=== PATIENT | female | born 1935 | race Caucasian/White ===

== ENCOUNTER 2016-04-18 12:34 | Emergency (ER) | payer MEDICARE ==
[~2016-04-18] VITALS: Ht 152.4 cm; Wt 69.0 kg
[~2016-04-18 12:34] MED LIST: ASPI-973 PO; CALC-140 PO; CALC-761 PO; CHOL100043 PO; GABA-502 PO; LACT1CAP67 PO; MAGN500C4 PO; MELA3TAB37 PO; MULT-321 PO; PRAV40TA PO; PRD5T PO; SERT20OR6 PO; TACR1CAP8 PO; VALS80TA2 PO
[2016-04-18 12:45] VITALS: BP 121/61; PULSE 95; O2SAT 96
--- NOTE | 2016-04-18 14:05 | ED.REPORT ---
HPI-General Illness Date of Service Apr 18, 2016 ED Provider: Donato Gomez DO Pt is an 81 y.o. female with a hx of liver and renal transplant, DM, and HTN who presents to the ED accompanied by her daughter c/o weakness onset today. Pt states that she experienced nausea upon awakening so she drank some soda. She then had to use the restroom and was unable to get out of her recliner so her husbands caregiver helped her get up and accompanied her to the restroom while she used her walker. She was unable to get onto the toilet and 'slid' onto the ground. Pt was unable to get herself off of the ground and EMS was called, the pt denied transport by EMS. Pt reports a recent cough onset several days ago. Pt denies any injury from the fall, she also denies pain, LOC, vomiting, and fever. Pt is currently on prednisone and tacrolimus. Nursing Notes Stated Complaint: FELL/WEAKNESS Chief Complaint: Multiple Trauma/Fall Nursing Notes Reviewed: Yes Allergies: Coded Allergies: Sulfa (Sulfonamide Antibiotics) (Verified Allergy, Unknown, 02/23/15) ampicillin (Verified Allergy, Unknown, 02/23/15) codeine (Verified Allergy, Unknown, 11/01/12) miconazole (Verified Allergy, Unknown, 11/01/12) spironolactone (Verified Allergy, Unknown, 11/01/12) Scheduled Aspirin (Aspirin) 81 Mg Tablet 81 MG PO Evening Calcium Carbonate/Vitamin D3 (Calcium + Vitamin D Tablet) 1 Each Tablet 1 EACH PO AM Calcium Citrate/Vitamin D3 (Citracal + D Maximum Caplet) 1 Each Tablet 1 EACH PO Noon Cephalexin (Cephalexin) 500 Mg Capsule 500 MG PO QID Cholecalciferol (Vitamin D3) (Vitamin D) 1,000 Unit Tablet 1,000 UNIT PO evening Gabapentin (Gabapentin) 300 Mg Capsule 300 MG PO TID Lactobacillus Combination No.4 (Probiotic) 1 Each Capsule 1 EACH PO AM Magnesium Oxide (Magnesium) 500 Mg Capsule 500 MG PO noon Melatonin (Meladox) 3 Mg Tablet.er 3 MG PO HS Multivit with Calcium,Iron,Min (Maximum Daily Multivitamin) 1 Each Tablet 1 EACH PO AM Pravastatin (Pravastatin) 40 Mg Tablet 80 MG PO HS Prednisone (PredniSONE) 5 Mg Tab 5 MG PO AM Sertraline HCl (Sertraline) 20 Mg/1 Ml Oral.conc 50 MG PO HS Tacrolimus (Tacrolimus) 1 Mg Capsule 1 MG PO HS Tacrolimus (Tacrolimus) 1 Mg Capsule 1 MG PO AM Valsartan (Diovan) 80 Mg Tablet 80 MG PO HS General Time Seen by MD: 13:54 Chief Complaint Weakness Hx Obtained From: Patient Arrived By: Ambulance Sudden in Onset?: Yes Onset Occurred: 5 - 8 hours ago Symptom Duration: Since onset Caused by: Fall on ground Context: Occurred at: Home injury Severity: Current: No pain currently Severity: Maximum: No pain Past Medical History Past Medical History Reports: Diabetes mellitus, Hypertension Past Surgical History Liver and Kidney transplant Reports: Appendectomy, Hysterectomy Family History noncontributory Smoking History Never Smoker Social History Alcohol Use: Denies alcohol use Drug Use: Denies drug use Review of Systems Full Review of Systems Constitutional: Reports: Weakness - generalized, Denies: Fever Respiratory: Reports: Non-productive cough Cardiovascular: Denies: Chest pain GI: Reports: Nausea, Denies: Abdominal pain Musculoskeletal: Denies: Extremity pain, Neck pain Neurologic: Denies: Change LOC, Headache Complete sys rev & neg: except as marked. Physical Exam Vital Signs Vital Signs Date Time Temp Pulse Resp B/P Pulse Ox O2 Delivery O2 Flow Rate FiO2 04/18/16 16:35 37.4 81 16 130/63 96 Room Air 04/18/16 16:20 37.4 81 16 130/63 96 Room Air 04/18/16 12:45 37.1 95 121/61 96 Initial VS: Reviewed Head / Eyes: Atraumatic, Normocephalic Extremities: Vascular intact, Neuro intact Skin: Warm, Dry, No cyanosis Neurologic: Alert, Oriented, Nonfocal Psychiatric: Mood/affect normal, Behavior normal, Normal thought content General/Constitutional: Awake, Alert, No acute distress, Well appearing, Well developed, Well hydrated, Well nourished, Not toxic appearing Respiratory / Chest: Atraumatic, Breath sounds = bilat, No respiratory distress Bibasilar rale with inspiration No increased work of breathing Cardiovascular: Heart rate NL, Regular rhythm Heart Sounds / Murmur: Positive: Systolic murmur present.. (II/, mild, left upper sternal border) Abdomen: Atraumatic, Soft, Non-tender, No distention Interpretation & Diagnostics Lab Results Interpretation Result Diagram: 04/18/16 1500 04/18/16 1500 Test 04/18/16 13:55 04/18/16 15:00 Urine Color Yellow (YELLOW) Urine Appearance Turbid (CLEAR,HAZY) Urine pH 7.0 (5.0-8.0) Urine Specific [place] 1.020 (1.003-1.035) Urine Protein 100mg/dL (NEG,TRACE) Urine Glucose (UA) Negativemg/dL (NEGATIVE) Urine Ketones Negativemg/dL (NEGATIVE) Urine Occult Blood Small (NEGATIVE) Urine Nitrite Negative (NEGATIVE) Urine Bilirubin Negative (NEGATIVE) Urine Urobilinogen Normalmg/dL (NORMAL) Urine Leukocyte Esterase Moderate (NEGATIVE) Urine RBC 3-10/hpf (0-2) Urine WBC Packed/hpf (0-5) Urine Epithelial Cells Moderate/hpf (NONE-MOD) Urine Crystals None seen (NONE SEEN) Urine Bacteria Many/hpf (NONE-FEW) Urine Hyaline Casts None/lpf (NONE) Urine Granular Casts None seen (NONE SEEN) Urine Waxy Casts None seen (NONE SEEN) Urine Red Blood Cell Casts None seen (NONE SEEN) Urine White Blood Cell Casts None seen (NONE SEEN) Urine Mucus None seen (None Seen) Urine Trichomonas None seen (NONE SEEN) Urine Yeast None (NONE SEEN) Urinalysis Comment Urine Culture Reflexed Indicated White Blood Count 14.6th/mm3 (3.8-10.1) Red Blood Count 3.23mil/mm3 (3.90-5.20) Hemoglobin 10.1g/dL (12.0-15.6) Hematocrit 32.4% (35.0-46.0) Mean Corpuscular Volume 100.3fL (81-100) Mean Corpuscular Hemoglobin 31.3pg (27.0-35.0) Mean Corpuscular Hemoglobin Concent 31.2% (32.0-37.0) Red Cell Distribution Width 12.5% (12.3-15.4) Platelet Count 163bil/L (150-400) Neutrophils (%) (Auto) 70.8% (40-74) Lymphocytes (%) (Auto) 18.9% (14-46) Monocytes (%) (Auto) 8.9% (4-12) Eosinophils (%) (Auto) 0.9% (0-5) Basophils (%) (Auto) 0.1% (0-3) Sodium Level 138mEq/L (134-144) Potassium Level 5.2mEq/L (3.5-5.2) Chloride Level 101mEq/L (97-108) Carbon Dioxide Level 24mmol/L (18-29) Blood Urea Nitrogen 32mg/dL (8-27) Creatinine 3.05mg/dL (0.57-1.00) Estimat Glomerular Filtration Rate 21mL/min (>59) Glucose Level 149mg/dL (60-99) Calcium Level 9.1mg/dL (8.5-10.1) Total Bilirubin 0.4mg/dL (0.0-1.2) Aspartate Amino Transf (AST/SGOT) 18U/L (0-50) Alanine Aminotransferase (ALT/SGPT) 9U/L (0-32) Alkaline Phosphatase 67U/L (25-165) Total Protein 6.1g/dL (6.4-8.4) Albumin 3.2g/dL (3.4-5.0) Hold Kelly Top Tube Received (Received) ECG Interpretation ECG Interpretation: RBBB appears to have resolved from 02/23/15 Time: 14:42 Interpreted by: ED physician Normal ECG Interpretation: Normal rate (73), Normal sinus rhythm X-Ray Chest Interpretation Chest Xray Interpretation: IMPRESSION: 1. No acute cardiopulmonary disease. 2. 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 Dictated by: Ermias Rivero M.D. on 04/18/2016 at 14:44 Approved by: Ermias Rivero M.D. on 04/18/2016 at 14:46 Re-Eval/Medical Decision Med Decision/Clinical Course 81-year-old female with a history of immunosuppression due to renal and hepatic transplants presents complaining of weakness and a recent fall without injury. Her lab work reveals her kidney function to be at baseline as well as her anemia. She does however have a leukocytosis and a dirty urine. I believe that the UTIs cause of her symptoms. No injuries are identified on exam or by history. We will treat her with Macrobid and have her follow-up with her PCP next week. Source of Hx: Old records Time of Eval: 16:01 Re-Evaluation/Progress Note: Pt rechecked. Discussed imaging, lab results, and plan for discharge. Pt understands and agrees with plan. Counseled Regarding: Diagnosis, Lab results, Need for follow-up, When/why to return to ED Discharge & Departure Primary Impression: UTI (urinary tract infection) Urinary tract infection type: acute cystitis Hematuria presence: with hematuria Qualified Code: N30.01 - Acute cystitis with hematuria Additional Impressions: Fall Encounter type: initial encounter Qualified Code: W19.XXXA - Unspecified fall, initial encounter Weakness Leukocytosis Leukocytosis type: unspecified Qualified Code: D72.829 - Elevated white blood cell count, unspecified Anemia Anemia type: unspecified type Qualified Code: D64.9 - Anemia, unspecified Chronic kidney disease Chronic kidney disease stage: stage 4 (severe) Qualified Code: N18.4 - Chronic kidney disease, stage 4 (severe) Disposition: Home Discharge Condition All VS Reviewed: Yes Condition: Stable Patient Instructions: Urinary Tract Infection in Women (ED) Additional Instructions: Thank you for entrusting us with your care today. Your examination included a physical exam, interview, EKG, chest x-ray, and labs. Your labs show that you have a UTI. You will be prescribed a 7 day course of antibiotics to take twice a day. I believe that this is the cause of your weakness. I recommend that you follow-up with your primary care provider. Please seek care if you develop fever , increased weakness, or any new or worsening symptoms. Referrals: Aris Caruso MD (PCP) Magno Attestation Portions of this note were transcribed by Peyton Gillette. I, Dr. Gomez personally performed the history, physical exam and medical decision-making; I reviewed and confirmed the accuracy of the information in the transcribed note. Signed by: Magno Schmidt, 04/18/2016 and 1087. copies to: Aris Caruso MD, Gary R DO Apr 18, 2016 14:05 PEYTON GILLETTE Apr 18, 2016 14:20
[2016-04-18 14:39] LABS: APPEARANCE,URINE TURBID (CLEAR,HAZY); COLOR,URINE YELLOW (YELLOW); OCCULT BLOOD,URINE SMALL (NEGATIVE); UROBILINOGEN,URINE NORMAL (NORMAL)
--- NOTE | 2016-04-18 14:47 | DRSVH ---
PROCEDURE: X-RAY CHEST, TWO VIEWS ([id number]) INDICATIONS: 81 year-old female with cough and weakness. TECHNIQUE: 2 views of the chest were acquired. COMPARISON: [facility], CT, CT CHEST ABD PELVIS WO CON, 02/24/2015, 17:50. [facility], CR, XR CHEST 1VW (PORTABLE), 02/23/2015, 13:24. [facility], CR, CHEST 1VW (P ORTABLE), 11/01/2012, 11:09. [facility], CR, CHEST 1VW (PORTABLE), 07/13/2012, 7:24. FINDINGS: Surgical changes and devices: Epigastric surgical clips are present. Lungs and pleura: No pleural effusions or pneumothorax. Lungs are clear. Mediastinum: Mediastinal contours are normal. Heart size is normal, with senescent mitral valve norma ular calcification. There is aortic atherosclerosis. Bones and chest wall: No suspicious bony abnormalities. Peripherally calcified splenic artery aneury sm is again noted.. IMPRESSION: 1. No acute cardiopulmonary disease. 2. 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 Dictated by: Ermias Rivero M.D. on 04/18/2016 at 14:44 Approved by: Ermias Rivero M.D. on 04/18/2016 at 14:46
[2016-04-18 15:11] LABS: BASOPHILS % (AUTO) 0.1 % (0-3); EOSINOPHILS % (AUTO) 0.9 % (0-5); MONOCYTES % (AUTO) 8.9 % (4-12); Mean Corpuscular Hemoglobin 31.3 pg (27.0-35.0); Mean Corpuscular Volume 100.3 fL (81-100); NEUTROPHILS % (AUTO) 70.8 % (40-74); Platelet Count 163 bil/L (150-400)
[2016-04-18] MEDS ORDERED: Nitrofurantoin Monohyd-Macrocryst 100 mg Capsule PO ONE (16:05)
[2016-04-18 16:20] VITALS: BP 130/63; PULSE 81; RESP 16; O2SAT 96
[2016-04-18] MEDS ORDERED: NITR100 PO (16:20)
[2016-04-18 16:35] VITALS: BP 130/63; PULSE 81; RESP 16; O2SAT 96
[2016-04-21] MEDS ORDERED: CEPH500C PO (10:30)
== END 2016-04-18 16:36 | disposition home or self-care (01) ==
LOC: SED 12:34
DX: N30.01 Acute cystitis with hematuria (principal); N18.4 Chronic kidney disease, stage 4 (severe); D72.829 Elevated white blood cell count, unspecified; D64.9 Anemia, unspecified; R53.1 Weakness; B96.1 Klebsiella pneumoniae [K. pneumoniae] as the cause of diseases classified elsewhere; W18.30XA Fall on same level, unspecified, initial encounter; Y92.002 Bathroom of unspecified non-institutional (private) residence as the place of occurrence of the external cause; Y93.89 Activity, other specified; Y99.8 Other external cause status; E11.22 Type 2 diabetes mellitus with diabetic chronic kidney disease; I12.9 Hypertensive chronic kidney disease with stage 1 through stage 4 chronic kidney disease, or unspecified chronic kidney disease; Z94.0 Kidney transplant status; Z94.4 Liver transplant status; Z79.82 Long term (current) use of aspirin; Z88.2 Allergy status to sulfonamides; Z88.0 Allergy status to penicillin; Z88.5 Allergy status to narcotic agent; Z88.8 Allergy status to other drugs, medicaments and biological substances

== ENCOUNTER 2016-10-25 10:47 | Inpatient (IN) | payer MEDICARE ==
[~2016-10-25] VITALS: Ht 152.4 cm; Wt 80.8 kg
[2016-10-25] VITALS (7 sets, daily range): BP systolic 128–156; BP diastolic 44–87; PULSE 87–99; RESP 16–21; O2SAT 95–98
[~2016-10-25 10:47] MED LIST changes: +CEPH500C PO
--- NOTE | 2016-10-25 10:48 | ED.REPORT ---
HPI-Trauma Minor / Fall Date of Service Oct 25, 2016 ED Provider: Mukesh Cruz MD Patient is an 81 year old female with a history of diabetes, liver and kidney transplant and hypertension who presents to the ED via EMS due to a ground level fall. She complains of back pain. The patient reports feeling nauseous this morning and then became dizzy, which caused her to fall. She is uncertain if she fainted. Patient has had lower extremity swelling for the past three weeks even though she has been taking a water pill. She denies hitting her head , chest pain or neck pain. The patient reports that it has been difficult for her to walk. She states that she fell and hit the bath tub. Nursing Notes Stated Complaint: GROUND LEVEL FALL Chief Complaint: Multiple Trauma/Fall Nursing Notes Reviewed: Yes Allergies: Coded Allergies: Sulfa (Sulfonamide Antibiotics) (Verified Allergy, Unknown, 02/23/15) ampicillin (Verified Allergy, Unknown, 02/23/15) codeine (Verified Allergy, Unknown, 11/01/12) miconazole (Verified Allergy, Unknown, 11/01/12) spironolactone (Verified Allergy, Unknown, 11/01/12) Scheduled Aspirin (Aspirin) 81 Mg Tablet 81 MG PO Evening Calcium Carbonate/Vitamin D3 (Calcium + Vitamin D Tablet) 1 Each Tablet 1 EACH PO AM Calcium Citrate/Vitamin D3 (Citracal + D Maximum Caplet) 1 Each Tablet 1 EACH PO Noon Cephalexin (Cephalexin) 500 Mg Capsule 500 MG PO QID Cholecalciferol (Vitamin D3) (Vitamin D) 1,000 Unit Tablet 1,000 UNIT PO evening Gabapentin (Gabapentin) 300 Mg Capsule 300 MG PO TID Lactobacillus Combination No.4 (Probiotic) 1 Each Capsule 1 EACH PO AM Magnesium Oxide (Magnesium) 500 Mg Capsule 500 MG PO noon Melatonin (Meladox) 3 Mg Tablet.er 3 MG PO HS Multivit with Calcium,Iron,Min (Maximum Daily Multivitamin) 1 Each Tablet 1 EACH PO AM Pravastatin (Pravastatin) 40 Mg Tablet 80 MG PO HS Prednisone (PredniSONE) 5 Mg Tab 5 MG PO AM Sertraline HCl (Sertraline) 20 Mg/1 Ml Oral.conc 50 MG PO HS Tacrolimus (Tacrolimus) 1 Mg Capsule 1 MG PO HS Tacrolimus (Tacrolimus) 1 Mg Capsule 1 MG PO AM Valsartan (Diovan) 80 Mg Tablet 80 MG PO HS General Time Seen by MD: 10:47 Chief Complaint Fall Hx Obtained From: Patient Arrived By: Ambulance Onset Occurred: Just prior to arrival Symptom Duration: Since onset Caused by: Fall on ground Location: Back Quality: Painful Severity: Current: Moderate Recent Healthcare: Recent doctor visit Past Medical History Past Medical History Reports: Diabetes mellitus, Hypertension Past Surgical History Liver and Kidney transplant Reports: Appendectomy, Hysterectomy Family History noncontributory Smoking History Never Smoker Social History Alcohol Use: Denies alcohol use Drug Use: Denies drug use Other Social History: Good social support Ambulatory Status Independent Review of Systems Constitutional: Denies: Chills, Fever Respiratory: Denies: Non-productive cough, Shortness of breath Musculoskeletal: Reports: Back pain Skin: Denies Itching, Denies Rash Neurologic: Reports: Dizziness, Problem walking, Denies: Headache, Lightheaded, Numbness, Weakness Complete sys rev & neg: except as marked. Cardiovascular: Denies: Chest pain GI: Reports: Nausea, Denies: Vomiting Physical Exam Initial Vital Signs Vital Signs (First) Date Time Temp Pulse Resp B/P Pulse Ox O2 Delivery O2 Flow Rate FiO2 10/25/16 10:47 36.6 98 18 141/44 97 Room Air Initial VS: Reviewed General/Constitutional: Awake, Alert Neck: Atraumatic, Supple, Full range of motion Head / Eyes: Atraumatic, Normocephalic, PERRL, EOMI Respiratory / Chest: Atraumatic, Breath sounds NL, Breath sounds = bilat, No respiratory distress Cardiovascular: Heart rate NL, Regular rhythm, Heart sounds NL Abdomen: Atraumatic, Soft, Non-tender Back: No midline vertebral tend, No paraspinal tenderness tender over the posterior lateral lower left side ribs Upper Extremity / MS: Atraumatic, Full range of motion Lower Extremity / Pelvis / MS: Atraumatic bilateral edema Skin: Atraumatic, Color NL, No rash, Warm, Dry Interpretation & Diagnostics Lab Results Interpretation Result Diagram: 10/25/16 1240 10/25/16 1240 Test 10/25/16 12:40 10/25/16 13:27 White Blood Count 9.6th/mm3 (3.8-10.1) Red Blood Count 2.47mil/mm3 (3.90-5.20) Hemoglobin 7.7g/dL (12.0-15.6) Hematocrit 24.7% (35.0-46.0) Mean Corpuscular Volume 100.0fL (81-100) Mean Corpuscular Hemoglobin 31.2pg (27.0-35.0) Mean Corpuscular Hemoglobin Concent 31.2% (32.0-37.0) Red Cell Distribution Width 14.2% (12.3-15.4) Platelet Count 166bil/L (150-400) Neutrophils (%) (Auto) 61.4% (40-74) Lymphocytes (%) (Auto) 27.5% (14-46) Monocytes (%) (Auto) 10.1% (4-12) Eosinophils (%) (Auto) 0.6% (0-5) Basophils (%) (Auto) 0.2% (0-3) Sodium Level 139mEq/L (134-144) Potassium Level 4.5mEq/L (3.5-5.2) Chloride Level 107mEq/L (97-108) Carbon Dioxide Level 20mmol/L (18-29) Blood Urea Nitrogen 36mg/dL (8-27) Creatinine 2.99mg/dL (0.57-1.00) Estimat Glomerular Filtration Rate 21mL/min (>59) Glucose Level 150mg/dL (60-99) Calcium Level 8.2mg/dL (8.5-10.1) Magnesium Level 1.9mg/dL (1.6-2.6) Total Bilirubin 0.3mg/dL (0.0-1.2) Aspartate Amino Transf (AST/SGOT) 20U/L (0-50) Alanine Aminotransferase (ALT/SGPT) 14U/L (0-32) Alkaline Phosphatase 68U/L (25-165) Pro-B-Type Natriuretic Peptide 44715ky/mL (0-738) Total Protein 4.6g/dL (6.4-8.4) Albumin 2.6g/dL (3.4-5.0) Hold Kelly Top Tube Received (Received) ECG Interpretation ECG Interpretation: atrial premature complexes RBBB Time: 11:12 Interpreted by: ED physician Normal ECG Interpretation: Normal rate (83), Normal sinus rhythm X-Ray Chest Interpretation Chest Xray Interpretation: IMPRESSION: Reduced inspiratory volume, without identified trauma. Dictated by: Francisco Rivera M.D. on 10/25/2016 at 12:02 Approved by: Francisco Rivera M.D. on 10/25/2016 at 12:03 View: Portable, 1 view Interpretation / Wet Read by: Interpret - Radiologist Re-Eval/Medical Decision Re-Evaluation/Progress : Time of Eval: 14:20 Re-Evaluation/Progress Note: Discussed results and plan for admit. Patient understands and agrees to plan. All questions were addressed. Consultation : Referral / Consult Name: Jed Garnica Consulted With: Hospitalist Truck Leasing Manager: Agrees with eval, Agrees with plan, Accepts admit Counseled Regarding: Diagnosis, Lab results, Need for admission Discharge & Departure Impression: Primary Impression: CHF (congestive heart failure) Congestive heart failure type: unspecified congestive heart failure type Congestive heart failure chronicity: acute Qualified Code: I50.9 - Heart failure, unspecified Additional Impression: Anasarca Disposition: ADMITTED TO HOSPITAL Discharge Condition All VS Reviewed: Yes Condition: Stable Referrals: Aris Caruso MD (PCP) Scribe Attestation Portions of this note were transcribed by Sunshine Schulz. I, Dr. Cruz personally performed the history, physical exam and medical decision-making; I reviewed and confirmed the accuracy of the information in the transcribed note. Signed by: Magno Reis, 10/25/16 copies to: Aris Caruso MD, Kirk H MD Oct 25, 2016 10:47 Shelbie Schulz Oct 25, 2016 10:51
--- NOTE | 2016-10-25 12:04 | DRSVH ---
PROCEDURE: X-RAY CHEST ONE VIEW, PORTABLE ([id number]) INDICATIONS: trauma TECHNIQUE: One view of the chest was acquired. COMPARISON: [facility], CR, XR CHEST 2VW, 04/18/2016, 14:34. [facility], CR, XR CHEST 1VW (PORTABLE), 02/23/2015, 13:24. FINDINGS: Surgical changes and devices: None. Lungs and pleura: No pleural effusions or pneumothorax. Lungs are abnormal with reduced inspiratory volume. No trauma found.. Mediastinum: Mediastinal contours appear normal. Heart size is normal. Bones and chest wall: No suspicious bony lesions. Overlying soft tissues appear unremarkable. IMPRESSION: Reduced inspiratory volume, without identified trauma. Dictated by: Francisco Rivera M.D. on 10/25/2016 at 12:02 Approved by: Francisco Rivera M.D. on 10/25/2016 at 12:03
[2016-10-25 12:52] LABS: BASOPHILS % (AUTO) 0.2 % (0-3); EOSINOPHILS % (AUTO) 0.6 % (0-5); MONOCYTES % (AUTO) 10.1 % (4-12); Mean Corpuscular Hemoglobin 31.2 pg (27.0-35.0); NEUTROPHILS % (AUTO) 61.4 % (40-74); Platelet Count 166 bil/L (150-400)
[2016-10-25 13:27] LABS: Magnesium 1.9 mg/dL (1.6-2.6)
[2016-10-25] MEDS ORDERED: Alum-Mag Hydrox-Simeth 30 mL Suspension PO PRN ×2 (15:20→15:45)
[2016-10-25] MEDS ORDERED: Ondansetron 2 mg/mL 2 mL Inj IVPUSH PRN (15:20)
[2016-10-25] MEDS ORDERED: Polyethylene Glycol (PEG) 17 Gm Powder PO PRN (15:45)
[2016-10-25] MEDS ORDERED: PRAV40TA PO (17:14)
[2016-10-25] MEDS ORDERED: FURO-129 PO (17:14)
--- NOTE | 2016-10-25 21:55 | PCM.HPMED ---
Subjective Date of Service Oct 25, 2016 Primary Provider: Admitting Physician: Jed Garnica Primary Care Physician: Aris Caruso MD Attending Physician: Jed Garnica Chief Complaint: Back pain after fall from ground level History of Present Illness: Ms. Jelena Merritt is a very pleasant 81 year old lady with a past medical history of hepatic and bilateral renal transplants in 2004, hypertension, DM, presented to the [facility] Emergency Department due to back pain after a fall from ground level. At 9AM patient was feeling a bit nauseous, when to the bathroom, became dizzy, at which point she fell backward and hit her left upper thoracic area on the tub. She denies syncope or seizure. She called EMS, and then declined hospital visit. Roughly an hour after EMS left, the patient attempted to stand and walk but reported 7/10 sharp back pain. She states it doesn't radiate and is aggravated by movement, standing and decided to call EMS once again and decided to come to the hospital. She denies hitting her head, chest pain or neck pain. She denies dizziness, vision change, headache, nausea, vomiting, fever, chills, chest pain, heart palpitations, shortness of breath, cough, abdominal pain, dysuria. She reports chronic intermittent diarrhea and upper back pain. Of note: Patient has had lower extremity swelling for the past three weeks even though she has been taking a water pill. Social: Patient lives with high needs who is hemiparetic and has home health aids/RN during the day. She has good family support. She ambulates with a front wheeled walker. FULL CODE. In the ED patients vitals: T-36.6, HR-98, RR-18, BP-144/44, 97% RA. EKG reviewed - Sinus rhythm, 83 bpm, PAC's, partial RBBB, no ST changes. CXR -IMPRESSION: Reduced inspiratory volume, without identified trauma. In the ED patient received: acetaminophen. Review of Systems: A comprehensive review of systems was conducted with the patient and found to be negative except as above in the History of Present Illness. Constitutional: Negative, except as otherwise mentioned in the history above. Ophthalmologic: Negative, except as otherwise mentioned in the history above. Cardiovascular: Negative, except as otherwise mentioned in the history above. Respiratory: Negative, except as otherwise mentioned in the history above. Gastrointestinal: Negative, except as otherwise mentioned in the history above. Genitourinary: Negative, except as otherwise mentioned in the history above. Musculoskeletal: Negative, except as otherwise mentioned in the history above. Neurological: Negative, except as otherwise mentioned in the history above. Psychiatric: Negative, except as otherwise mentioned in the history above. Hematologic/Lymphatic: Negative, except as otherwise mentioned in the history above. Allergic/Immunologic: Negative, except as otherwise mentioned in the history above. Allergies Coded Allergies: Sulfa (Sulfonamide Antibiotics) (Verified Allergy, Unknown, 02/23/15) codeine (Verified Allergy, Unknown, 11/01/12) miconazole (Verified Allergy, Unknown, 11/01/12) spironolactone (Verified Allergy, Unknown, 11/01/12) Home Medications ASA 81 mg daily Calcium citrate VD3 1 PO noon Furosemide 20 mg jDaily Gabapentin 300 mg TID Lactobacillus 1 each AM. Magnesium Oxide 500 mg PO noon Multivit with calcium, iron, min 1 each AM Pravastatin 40 mg HS Prednisone 5 mg AM Sertraline 50 mg PO HS Tacrolimus 1 Mg PO HS Tacrolimus 1 MG PO AM Valsartan 80 mg HS Exam Vital Signs & I/O Vital Sign- Last 8 Hours Date Time Temp Pulse Resp B/P Pulse Ox O2 Delivery O2 Flow Rate FiO2 10/26/16 16:15 37.3 101 20 157/76 92 Room Air 10/26/16 11:45 37.5 100 18 165/66 94 Room Air 10/26/16 11:07 111 Intake and Output- Last 8 Hour 10/26/16 Cumulative From/Thru 07:00 10/25/16 10:47 - 10/26/16 03:30 Output Total 300 ml 300 ml Balance -300 ml -300 ml Output Urine Total 300 ml 300 ml Lab & Micro Results Laboratory Tests Test 10/25/16 20:15 10/26/16 07:33 10/26/16 10:35 10/26/16 13:00 Hemoglobin 7.9g/dL (12.0-15.6) 8.5g/dL (12.0-15.6) Hematocrit 25.0% (35.0-46.0) 27.4% (35.0-46.0) White Blood Count 10.2th/mm3 (3.8-10.1) Red Blood Count 2.77mil/mm3 (3.90-5.20) Mean Corpuscular Volume 98.9fL (81-100) Mean Corpuscular Hemoglobin 30.7pg (27.0-35.0) Mean Corpuscular Hemoglobin Concent 31.0% (32.0-37.0) Red Cell Distribution Width 14.1% (12.3-15.4) Platelet Count 167bil/L (150-400) Neutrophils (%) (Auto) 64.8% (40-74) Lymphocytes (%) (Auto) 22.9% (14-46) Monocytes (%) (Auto) 10.4% (4-12) Eosinophils (%) (Auto) 1.5% (0-5) Basophils (%) (Auto) 0.2% (0-3) Prothrombin Time 12.4sec (8.1-12.5) Prothromb Time International Ratio 1.16ratio D-Dimer 5.57mg/L FEU (<0.50) Sodium Level 140mEq/L (134-144) Potassium Level 5.0mEq/L (3.5-5.2) Chloride Level 109mEq/L (97-108) Carbon Dioxide Level 20mmol/L (18-29) Blood Urea Nitrogen 38mg/dL (8-27) Creatinine 3.05mg/dL (0.57-1.00) Estimat Glomerular Filtration Rate 21mL/min (>59) Glucose Level 154mg/dL (60-99) Calcium Level 8.2mg/dL (8.5-10.1) Phosphorus Level 3.8mg/dL (2.5-4.9) Iron Level 15ug/dL (35-150) Total Iron Binding Capacity 184ug/dL (250-450) Percent Iron Saturation 8%sat (15-50) Unsaturated Iron Binding 168.6ug/dL Ferritin 812ng/mL (13-150) Total Bilirubin 0.3mg/dL (0.0-1.2) Aspartate Amino Transf (AST/SGOT) 19U/L (0-50) Alanine Aminotransferase (ALT/SGPT) 13U/L (0-32) Alkaline Phosphatase 82U/L (25-165) Pro-B-Type Natriuretic Peptide 53068rj/mL (0-738) Total Protein 4.5g/dL (6.4-8.4) Albumin 2.6g/dL (3.4-5.0) Parathyroid Hormone (Intact) 73pg/mL (15-65) Troponin T 0.063ug/L (0.0-0.011) Procalcitonin 5.40ng/mL (0.00-0.08) Thyroid Stimulating Hormone (TSH) 3.670uIU/mL (0.450-4.500) Free Thyroxine 0.89ng/dL (0.82-1.77) Test 10/26/16 16:24 Urine Color Yellow (YELLOW) Urine Appearance Cloudy (CLEAR,HAZY) Urine pH 6.5 (5.0-8.0) Urine Specific [place] 1.020 (1.003-1.035) Urine Protein 300mg/dL (NEG,TRACE) Urine Glucose (UA) 250mg/dL (NEGATIVE) Urine Ketones Tracemg/dL (NEGATIVE) Urine Occult Blood Moderate (NEGATIVE) Urine Nitrite Negative (NEGATIVE) Urine Bilirubin Negative (NEGATIVE) Urine Urobilinogen Normalmg/dL (NORMAL) Urine Leukocyte Esterase Trace (NEGATIVE) Urine RBC 3-10/hpf (0-2) Urine WBC 11-50/hpf (0-5) Urine Epithelial Cells Few/hpf (NONE-MOD) Urine Crystals None seen (NONE SEEN) Urine Bacteria Many/hpf (NONE-FEW) Urine Hyaline Casts None/lpf (NONE) Urine Granular Casts None seen (NONE SEEN) Urine Waxy Casts None seen (NONE SEEN) Urine Red Blood Cell Casts None seen (NONE SEEN) Urine White Blood Cell Casts None seen (NONE SEEN) Urine Mucus None seen (None Seen) Urine Trichomonas None seen (NONE SEEN) Urine Yeast None (NONE SEEN) Urinalysis Comment None Urine Culture Reflexed Indicated Microbiology 10/26/16 Blood Culture, Received Pending 10/26/16 Urine Culture, Received Pending Result Diagram: 10/26/16 0733 10/26/16 0733 PMH Diabetes mellitus Hypertension Surgical History Liver and Kidney transplant 2005 Appendectomy Hysterectomy Family History Mother - CHF Father - Leukemia Social History Hx Alcohol Use: No Hx Substance Use: No Hx Tobacco Use: No Smoking Status: Never Smoker Exam Vital Signs Vital Sign - Last Date Time Temp Pulse Resp B/P Pulse Ox O2 Delivery O2 Flow Rate FiO2 10/25/16 16:50 36.9 92 18 152/75 97 Room Air Exam General: No acute distress, well-developed, well-nourished, appropriately interactive HEENT: Normocephalic, atraumatic. External ears without defect. Pupils equal, round, and reactive to light and accommodation. Anicteric sclerae, moist conjunctivae, and no lid lag. Oropharynx free of erythema and cobble stoning with moist mucosa. Neck: Supple with full range of motion. No jugular venous distension. No bruits. No lymphadenopathy or thyromegaly. Cardiovascular: Regular rate and rhythm with no murmurs, rubs, or gallops appreciated Pulmonary: Clear to auscultation bilaterally with no crackles, wheezes, or rhonchi. Normal respiratory effort with no use of accessory muscles. Abdomen: Bowel tones present. Soft, nontender, nondistended. No hepatosplenomegaly or masses appreciated. Extremities: No clubbing, cyanosis, edema, or lymphadenopathy appreciated. Skin: Normal temperature, turgor, and texture; no rash, ulcers, or subcutaneous nodules appreciated. Neurological: Cranial nerves grossly intact. Normal muscle strength, tone, and bulk. Reflexes, coordination, and sensory function within normal limits. Ambulates with the aid of a front wheeled walker. Psychiatric: Normal mood and affect. Alert and oriented to person, place, and time. MSK: Left paraspinal thoracic tenderness. Lab and Diagnostics Result Diagram: 10/26/1673210/26/16732 Assessment & Plan Ms. Jelena Merritt is a very pleasant 81 year old lady with a past medical history of hepatic and bilateral renal transplants in 2004, hypertension, DM, presented to the [facility] Emergency Department due to back pain after a fall from ground level. Acute Thoracic Back pain, 2nd to traumatic Fall from Ground level. Present on admission. Active. - CXR as above no fracture. - Physical therapy eval ordered. - Orthostatic BP ordered. - TELE on. - UA/ cx ordered. Congestive Heart failure, unknown chronicity, likely HFpEF, present on admission. Active. - ECHO ordered. - BNP on admit 12k. - EKG reviewed - Sinus rhythm, PAC's, RBBB. - Continue home furosemide 20 mg daily. Hx of Hepatic and Renal transplant, 2004, present on admission. Active. - Continue Tacrolimus 1mg AM/HS. - Continue home Prednisone 5 mg daily. Acute on chronic Kidney injury. Present on admission. Active. - Creatinine on admission 2.99, baseline ~ 2.6. - Continue IV fluids. - Avoid nephrotoxic insults. Acute on chronic Normocytic Anemia. Present on admission. Stable. - Hgb on admit 7.7. Prior levels inpatient and outpatient baseline between 9 and 10. - Stool guaiac ordered. - Following HH, pediatric tubes daily. Hyperlipemia - Continue home Pravastatin 40 mg daily. Hypertension - Continue home Valsartan 80 mg HS. Depression - Continue home Sertraline 20 mg HS. Acetaminophen for mild pain when necessary. Bowel regimen Senna and MiraLAX scheduled and PRN. Zofran when necessary for nausea and vomiting. SubQ heparin for now. SCDs in place. High-risk medications: NONE. Social: Patient lives with high needs who is hemiparetic and has home health aids/RN during the day. She has good family support. She ambulates with a front wheeled walker. Patient Status: Patient is admitted under inpatient status with expected length of stay greater than 2 midnights due to severity of presenting symptoms, risk of adverse event, and complexity of treatment plan. Pain Evaluation: Adequate Pain Control Resuscitation Status: CPR: Attempt Resuscitation Attending Statement The patient was seen and examined together with Dr. Snadra on 10/24/16 and I agree with the history, exam and plan as outlined in the note above. LYNNE SANDRA DO Oct 25, 2016 17:17 Jed Garnica Oct 26, 2016 17:03
[2016-10-26] VITALS (9 sets, daily range): BP systolic 134–182; BP diastolic 66–79; PULSE 71–111; RESP 16–20; O2SAT 92–100
[2016-10-26 08:03] LABS: BASOPHILS % (AUTO) 0.2 % (0-3); EOSINOPHILS % (AUTO) 1.5 % (0-5); MONOCYTES % (AUTO) 10.4 % (4-12); Mean Corpuscular Hemoglobin 30.7 pg (27.0-35.0); Mean Corpuscular Volume 98.9 fL (81-100); NEUTROPHILS % (AUTO) 64.8 % (40-74); Platelet Count 167 bil/L (150-400)
[2016-10-26 08:05] LABS: INR 1.16 ratio
[2016-10-26 10:27] LABS: Phosphorus 3.8 mg/dL (2.5-4.9); Unsaturated Iron Binding 168.6 ug/dL
--- NOTE | 2016-10-26 10:54 | DRSVH ---
[facility] [address] [place] [address] Echocardiogram Report Name: KERLINE FIGUEROA LStudy Date: Height: 60 in Hospital Exam Location: [facility] Weight: 168 lb Gender: Female BSA: 1.7 m2 : 1935 Age: 81 yrs BP: 102/75 mmHg Reason For Study: CHF Ordering Physician: HOSPITALIST [facility] Performed By: Luz Olivo Referring Physician: Moi Aguiar Interpretation Summary The ejection fraction is estimated to be 70-75%. The left atrium is severely dilated. The right atrium is mild to moderately dilated. There is moderate mitral annular calcification. The mitral valve mean gradient is 4 mmHg. There is mild to moderate mitral regurgitation. The aortic valve is moderately calcified. There is no hemodynamically significant valvular aortic stenosis. There is mild tricuspid regurgitation. The right ventricular systolic pressure is estimated at 34 mmHg assuming a right atrial pressure of 3 mm Hg. Procedure: A two-dimensional transthoracic echocardiogram with color flow and Doppler was performed. The study quality was technically adequate. Comparison is made with the echocardiogram of 02/24/2015. The patient was in sinus tachycardia with heart rates between 97-129 bpm during the exam. Left Ventricle: The left ventricle is normal in size. The ejection fraction is estimated to be 70-75%. Left ventricular wall motion is normal. Atria: The left atrium is severely dilated. The right atrium is mild to moderately dilated. The interatrial septum is intact with no evidence for an atrial septal defect. Mitral Valve: The mitral valve leaflets appear mildly thickened, but open well. There is moderate mitral annular calcification. The mitral valve mean gradient is 4 mmHg. There is mild to moderate mitral regurgitation. Aortic Valve: The aortic valve is trileaflet. The aortic valve is moderately calcified. There is no hemodynamically significant valvular aortic stenosis. No aortic regurgitation is present. Tricuspid Valve: The tricuspid valve leaflets are thin and pliable. There is mild tricuspid regurgitation. The right ventricular systolic pressure is estimated at 34 mmHg assuming a right atrial pressure of 3 mm Hg. Pulmonic Valve: The pulmonic valve is not well seen, but is grossly normal. There is a trace or physiologic amount of pulmonic regurgitation. Great Vessels: The aortic root is normal size. The ascending aorta is normal in size. The IVC is of normal diameter and collapses greater than 50% with a sniff. This suggests a low right atrial pressure of 3 mm Hg. Pericardium/ Pleura There is no pericardial effusion. There is no pleural effusion. MMode/2D Measurements & Calculations RA long axis LVOT diam: 2.2 cm TAPSE LA A2 area: 27.0 cm asc Aorta Diam : 2.4 cm LA A4 area: 27.7 cm LA length (vol): 6.1 cmRA area: 11.2 cm LA vol: 104.6 ml RA vol: 24.2 ml LA vol index RA : 14.0 ml/m2 : 60.4 ml/m2 Doppler Measurements & Calculations Ao V2 max MV E max ed MV E/A: 0.71 TR max ed : 184.7 cm/sec : 97.5 cm/sec : 278.9 cm/sec Ao max PG MV A max ed TR max P.1 mmHg : 13.7 mmHg : 137.9 cm/sec Ao mean PG MVA(VTI): 2.4 cm2 LVOT Max Ed : 127.5 cm/sec DWIGHT(I,D): 2.4 cm sev ratio: 0.64 MV V2 mean Ao V2 mean LV V1 max PG DWIGHT indexed to BSA : 87.7 cm/sec : 128.7 cm/sec (cm^2/m^2): 1.4 MV mean PG Ao V2 VTI: 33.0 cm LV V1 VTI DWIGHT(V,D): 2.6 cm2 : 21.2 cm MV V2 VTI: 33.0 cm MV dec time : 0.23 sec Electronically signed by: Mikie Arenas on Reading Physician:10/26/2016 10:53 AM
[2016-10-26] MEDS: predniSONE 5 mg Tablet PO SCH (11:53)
--- NOTE | 2016-10-26 14:24 | PCM.CHPMED ---
Subjective Date of Service: Oct 26, 2016 Primary Physician: Admitting Physician: Jed Garnica Primary Care Physician: Aris Caruso MD Attending Physician: Jed Garnica Chief Complaint: Chief Complaint: CKD status post renal transplant 2004 History of Present Illness: Ms. Merritt is a 81 year old female with a past medical history of liver and kidney transplant in 2004 on tacrolimus and prednisone, HTN, diabetes mellitus presented to the ED after a syncopal episode resulting in a ground level fall. She was in the bathroom rising to standing position when she became dizzy falling backwards landing on her coccyx and thoracic spine area, she denies striking her head. Leading up to this syncopal episode she states she has had intermittent diarrhea 1 year as well as nausea over the last day up to admission. She states over the last 2-3 weeks she has had an increase in her lower extremity swelling as well as shortness of breath despite recent addition of low-dose Lasix. Overnight she received a bladder scan which showed 500 mL residual urine volume, patient received straight cath with 300 mL urinary output. Today patient states no specific complaints, denies shortness of breath or chest pain. States that she has noticed some degree of lower extremity swelling does not states she has noticed any abdominal swelling or discomfort. She is followed by her customer support professional [facility] yearly. She states that her kidney function is doing well and she does not recall her baseline creatinine level. In review of previous health records it appears that her creatinine has been steadily trending up over the last year or so 2.9 on admit 3.05 today. She does take chronic tacrolimus and prednisone and is recently begun Lasix 20 mg by mouth daily. She reports no renal biopsy status post transplant though did receive biopsy prior to renal transplant in 2004. PMH Past Medical History Diabetes mellitus Hypertension Chronic kidney disease Surgical History Liver and Kidney transplant 2004 Appendectomy Hysterectomy Home Medications ASA 81 mg daily Calcium citrate VD3 1 PO noon Furosemide 20 mg jDaily Gabapentin 300 mg TID Lactobacillus 1 each AM. Magnesium Oxide 500 mg PO noon Multivit with calcium, iron, min 1 each AM Pravastatin 40 mg HS Prednisone 5 mg AM Sertraline 50 mg PO HS Tacrolimus 1 Mg PO HS Tacrolimus 1 MG PO AM Valsartan 80 mg HS Allergies: Coded Allergies: Sulfa (Sulfonamide Antibiotics) (Verified Allergy, Unknown, 02/23/15) codeine (Verified Allergy, Unknown, 11/01/12) miconazole (Verified Allergy, Unknown, 11/01/12) spironolactone (Verified Allergy, Unknown, 11/01/12) Family History Family History Mother - CHF Father - Leukemia Social History Hx Alcohol Use: NoHx Substance Use: NoHx Tobacco Use: No Smoking Status: Never Smoker Exam Vital Signs Vital Sign - Last Date Time Temp Pulse Resp B/P Pulse Ox O2 Delivery O2 Flow Rate FiO2 10/26/16 11:07 111 10/26/16 06:00 37.6 16 182/75 92 Room Air Intake and Output 10/25/16 10/25/16 10/26/16 Cumulative From/Thru 15:00 23:00 07:00 10/25/16 10:47 - 10/26/16 03:30 Output Total 300 ml 300 ml Balance -300 ml -300 ml Output Urine Total 300 ml 300 ml General: No acute distress, well-developed, well-nourished, appropriately interactive HEENT: Normocephalic, atraumatic. External ears without defect. Pupils equal, round, and reactive to light and accommodation. Anicteric sclerae, moist conjunctivae, and no lid lag. Moist mucosa. Neck: Supple with full range of motion. No jugular venous distension. Cardiovascular: Regular rate and rhythm with no murmurs, rubs, or gallops appreciated Pulmonary: Clear to auscultation bilaterally with no crackles, wheezes, or rhonchi. Normal respiratory effort with no use of accessory muscles. Abdomen: Bowel tones present. Soft, nontender, nondistended. No hepatojugular reflux Extremities: Mild lower extremity edema to ankles Skin: Normal temperature, turgor, and texture Neurological: Cranial nerves grossly intact. Psychiatric: Normal mood and affect. Alert and oriented to person, place, and time. Lab and Diagnostics Result Diagram: 10/26/16 0733 10/26/16 0733 X-Rays, CTs and MRIs . X-RAY CHEST ONE VIEW, PORTABLE IMPRESSION: Reduced inspiratory volume, without identified trauma. Dictated by: Francisco Rivera M.D. on 10/25/2016 Additional Diagnostics: . Echocardiogram Report Interpretation Summary: The ejection fraction is estimated to be 70-75%. The left atrium is severely dilated. The right atrium is mild to moderately dilated. There is moderate mitral annular calcification. The mitral valve mean gradient is 4 mmHg. There is mild to moderate mitral regurgitation. The aortic valve is moderately calcified. There is no hemodynamically significant valvular aortic stenosis. There is mild tricuspid regurgitation. The right ventricular systolic pressure is estimated at 34 mmHg assuming a right atrial pressure of 3 mm Hg. Electronically signed by: Mikie Arenas Assessment & Plan Assessment . Acute on chronic Kidney injury -Baseline creatinine approximately 2.6, 2.99 on admission 3.05. -Stop PO lasix -Start IV Lasix 40mg x2 doses -Urine studies pending -Additional labs pending -Prograf level pending -US Renal doppler pending Hx of Hepatic and Renal transplant, 2004, present on admission. Active. -Continue Tacrolimus 1mg AM/HS. -Continue home Prednisone 5 mg daily. Acute on chronic Normocytic Anemia. - Hgb on admit 7.7. Prior levels inpatient and outpatient baseline between 9 and 10. - Stool guaiac ordered. - Following HH, pediatric tubes daily. Congestive Heart failure -ECHO as above Hypertension - hold ARBs given YONATHAN. - will start metoprolol for BP and HR control. Addendum: Patient was seen and examined. Case discussed with Dr. Stuart. Agree as detailed above. 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 In review of her record her baseline serum creatinine have ranged between 1.7 and 1.9 several years ago. She did have episode of recurrent UTIs and ATN. 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 Patient was seen last time by her transplant customer support professional in April 2016. She reported that her serum creatinine was in mid 2s. According to our record, her serum creatinines have ranged between 2.57-2.69 over the past 12 months. Patient reported to me that she has had worsening lower extremity swelling over the past 3 weeks. Her legs were very tender and she had a hard time moving her lower extremities. She received PO Lasix 20 mg by her PCP last week. However it has not relieved the symptoms. Initial BMP revealed a serum creatinine of 2.99. UA showed pyuria. Chest x- ray showed left pleural effusion. Echocardiogram showed infection fraction of 70-75% with severe left atrium dilatation. YONATHAN in the setting of kidney transplant with underlying disease of chronic transplant glomerulopathy. DDx: ATN, CRS, obstructive uropathy, acute on chronic transplant glomerulopathy , BK nephropathy, CNI toxicity. We will order - UA, urine culture, renal and liver US. - BK PCR, CMV PCR - UPCR - CXR, Echo, venous Doppler - Tacrolimus level - Anemia w/u Further management depends upon those results. We will revisit her again in the afternoon. Thank you for allowing me to participate in the care of your patient. We will follow along with you. Bo Moss MD Pg [phone] Problems: Pain Evaluation: Adequate Pain Control Resuscitation Status: CPR: Attempt Resuscitation RUDY STUART DO Oct 26, 2016 14:24 Claudette Gonzalez MD Oct 27, 2016 12:01
--- NOTE | 2016-10-26 14:43 | DRSVH ---
PROCEDURE: US ABDOMEN DOPPLER INDICATIONS: check patency of blood supply to liver and kidney TECHNIQUE: Real-time scanning was performed of the abdominal and retroperitoneal organs, with image documentatio n. COMPARISON: [facility], US, US VENOUS LEG DPLX UNI RT, 06/09/2016, 9:46. FINDINGS: Liver length: 12.30 cm Gallbladder Wall Thickness: Surgically absent CHD: 9.30 mm CBD: 1.09 cm Spleen length: 12.94 cm Right kidney length: Not well-seen Left kidney length: Not well-seen Aorta(Proximal): 1.75 cm Aorta(Mid): 1.83 cm Aorta(Distal): 1.81 cm RCIA: Obscured LCIA: Obscured Liver: Liver is normal in size and homogeneous in echotexture. Blood flow within the portal vein in the appropriate direction. Patent hepatic artery. Gallbladder: Surgically absent Biliary ducts: Intrahepatic bile ducts are non-dilated. Extrahepatic bile duct caliber is normal. Normal is 6-7 mm or less in diameter, or 10 mm or less post-cholecystectomy. Pancreas: Visualized portions of the pancreas are sonographically normal. Spleen: Spleen is normal in size and homogeneous in echotexture. The splenic veins are not identifi ed. Kidneys: Kidneys are poorly seen and likely atrophic. There is a right abdominal transplant kidney me asuring 10.1 CM in length with cortex measuring 1.2 CM. Aorta: Visualized aorta is normal in caliber at less than 3 cm. Iliacs: Obscured. IVC: Intrahepatic inferior vena cava is patent. Miscellaneous: Mild/moderate ascites IMPRESSION: 1. Poorly seen [place] kidneys with a right abdominal transplant kidney. 2. The main portal vein and the hepatic veins are patent. Renal vasculature was not evaluated. Dictated by: Bennie Strauss M.D. on 10/26/2016 at 14:32 Approved by: Bennie Strauss M.D. on 10/26/2016 at 14:41
--- NOTE | 2016-10-26 16:05 | DRSVH ---
PROCEDURE: X-RAY CHEST ONE VIEW, PORTABLE ([id number]) INDICATIONS: fever TECHNIQUE: One view of the chest was acquired. COMPARISON: [facility], CR, XR CHEST 1VW (PORTABLE), 10/25/2016, 11:18. FINDINGS: Surgical changes and devices: None. Lungs and pleura: New small left pleural effusion with left basilar atelectasis. Trace right pleural effusion.. Mediastinum: Mediastinal contours appear normal. Heart size is normal. Mitral annular calcificatio ns. Bones and chest wall: No suspicious bony lesions. Overlying soft tissues appear unremarkable. 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 IMPRESSION: Pleural effusions left greater than right with left basilar atelectasis or infiltrate. Dictated by: Bennie Strauss M.D. on 10/26/2016 at 16:00 Approved by: Bennie Strauss M.D. on 10/26/2016 at 16:03
[2016-10-26 16:10] LABS: TROPONIN T 0.063 ug/L (0.0-0.011)
[2016-10-26] MEDS ORDERED: DEXTROSE 5% IV SCH (16:15)
[2016-10-26] MEDS ORDERED: PIPERACILLIN TAZO IV SCH (16:15)
[2016-10-26 16:47] LABS: APPEARANCE,URINE CLOUDY (CLEAR,HAZY); COLOR,URINE YELLOW (YELLOW); OCCULT BLOOD,URINE MODERATE (NEGATIVE); PH,URINE 6.5 (5.0-8.0); UROBILINOGEN,URINE NORMAL (NORMAL)
--- NOTE | 2016-10-26 17:25 | PCM.PNMED ---
Subjective Date of Service Oct 26, 2016 Subjective patient started to have tachycardia and low grade fever,UA with pyuria started cefepime. continues to have low back pain and refuses to turn side ways for exam or going down for spine imaging .elevated Exam Vital Signs Vital Sign - Last Date Time Temp Pulse Resp B/P Pulse Ox O2 Delivery O2 Flow Rate FiO2 10/26/16 16:15 37.3 101 20 157/76 92 Room Air Intake and Output 10/25/16 10/25/16 10/26/16 Cumulative From/Thru 15:00 23:00 07:00 10/25/16 10:47 - 10/26/16 03:30 Output Total 300 ml 300 ml Balance -300 ml -300 ml Output Urine Total 300 ml 300 ml Exam General: No acute distress, well-developed, well-nourished, appropriately interactive HEENT: Normocephalic, atraumatic. External ears without defect. Pupils equal, round, and reactive to light and accommodation. Anicteric sclerae, moist conjunctivae, and no lid lag. Oropharynx free of erythema and cobble stoning with moist mucosa. Neck: Supple with full range of motion. No jugular venous distension. No bruits. No lymphadenopathy or thyromegaly. Cardiovascular: Regular rate and rhythm with no murmurs, rubs, or gallops appreciated Pulmonary: Clear to auscultation bilaterally with no crackles, wheezes, or rhonchi. Normal respiratory effort with no use of accessory muscles. Abdomen: Bowel tones present. Soft, nontender, nondistended. No hepatosplenomegaly or masses appreciated. Extremities: No clubbing, cyanosis, edema, or lymphadenopathy appreciated. Skin: Normal temperature, turgor, and texture; no rash, ulcers, or subcutaneous nodules appreciated. Neurological: Cranial nerves grossly intact. Normal muscle strength, tone, and bulk. Reflexes, coordination, and sensory function within normal limits. Ambulates with the aid of a front wheeled walker. Psychiatric: Normal mood and affect. Alert and oriented to person, place, and time. MSK: Left paraspinal thoracic tenderness. IVs and Medications Medications Reviewed: Medications were reviewed in detail Lab and Diagnostics Result Diagram: 10/26/16 0733 10/26/16 0733 X-Rays, CTs and MRIs PROCEDURE: US ABDOMEN DOPPLER INDICATIONS: check patency of blood supply to liver and kidney IMPRESSION: 1. Poorly seen [place] kidneys with a right abdominal transplant kidney. 2. The main portal vein and the hepatic veins are patent. Renal vasculature was not evaluated. Dictated by: Bennie Strauss M.D. on 10/26/2016 at 14:32 PROCEDURE: X-RAY CHEST ONE VIEW, PORTABLE ([id number]) INDICATIONS: fever IMPRESSION: Pleural effusions left greater than right with left basilar atelectasis or infiltrate. Dictated by: Bennie Strauss M.D. on 10/26/2016 at 16:00 12-lead ECG SR,incomplete RBBB Cardiac Echo Impressions Interpretation Summary The ejection fraction is estimated to be 70-75%. The left atrium is severely dilated. The right atrium is mild to moderately dilated. There is moderate mitral annular calcification. The mitral valve mean gradient is 4 mmHg. There is mild to moderate mitral regurgitation. The aortic valve is moderately calcified. There is no hemodynamically significant valvular aortic stenosis. There is mild tricuspid regurgitation. The right ventricular systolic pressure is estimated at 34 mmHg assuming a right atrial pressure of 3 mm Hg. Assessment & Plan Ms. Jelena Merritt is a very pleasant 81 year old lady with a past medical history of hepatic and bilateral renal transplants in 2004, hypertension, DM, presented to the [facility] Emergency Department due to back pain after a fall from ground level. # Acute UTI -tachycardia at 110,low grade fever,pyuria,procal elevated at 5 -urine culture pending -started cefepime -uti probably caused the fall yesterday # Acute on chronic Kidney injury. Present on admission. Active. - Creatinine on admission 2.99, baseline ~ 2.6. - Avoid nephrotoxic insults. -gan placed for I/O and incontinence -nephrology Dr Moss following # Elevated troponin -due to YONATHAN on CKD ,will trend -ASA 1 dose given -LA severely dilated on echo,RVSP 34,d-dimer elated ,will consider VQ scan if trends up .LE duplex pending .hold off empiric AC awaitng LE duplex # Elevated d-dimer -patient recently tretaed with lasix for anasarca ,no LE asymetry now -LA severely dilated on echo,RVSP 34,d-dimer elated ,will consider VQ scan if trends up .not a candidate for CTA .LE duplex pending .hold off empiric AC awaitng LE duplex # Acute Thoracic Back pain, 2nd to traumatic Fall from Ground level. Present on admission. Active. - CXR as above no fracture. patient refusing low back CT -pain control with morphine - Physical therapy eval ordered. - Orthostatic BP ordered. - TELE on. - fall due to UTI # suspected Congestive Heart failure, unknown chronicity,, present on admission. Active. - ECHO as above - BNP on admit 12k. - EKG reviewed - Sinus rhythm, PAC's, RBBB. - Continue home furosemide 20 mg daily. # Hx of Hepatic and Renal transplant, 2004, present on admission. Active. - Continue Tacrolimus 1mg AM/HS. - Continue home Prednisone 5 mg daily. # Acute on chronic Normocytic Anemia. Present on admission. Stable. - Hgb on admit 7.7. Prior levels inpatient and outpatient baseline between 9 and 10. - Stool guaiac ordered. - Following HH, pediatric tubes daily. # Hyperlipemia - Continue home Pravastatin 40 mg daily. # Hypertension - Continue home Valsartan 80 mg HS. # Depression - Continue home Sertraline 20 mg HS. Acetaminophen for mild pain when necessary. Bowel regimen Senna and MiraLAX scheduled and PRN. Zofran when necessary for nausea and vomiting. SubQ heparin for now. SCDs in place. High-risk medications: NONE. inpatient full code Resuscitation Status: CPR: Attempt Resuscitation Norris Rodriguez MD Oct 26, 2016 17:25
[2016-10-26] MEDS ORDERED: Cefepime Inj 1,000 MG in Dextrose 5% Minibag Plus 50 ML IV ONE (19:00)
--- NOTE | 2016-10-26 19:28 | DRSVH ---
PROCEDURE: US VENOUS LEG DUPLEX BILATERAL INDICATIONS: leg swelling TECHNIQUE: Real-time imaging, as well as color and pulse Doppler interrogation, were performed of the deep veins of both legs from the inguinal ligament to the popliteal fossa. COMPARISON: None. FINDINGS: The deep veins are normally compressible, and free of intraluminal thrombus. Color and pu lse Doppler demonstrate normal phasic intravascular flow. There is normal augmentation response to d istal compression maneuver. IMPRESSION: No DVT in lower extremities bilaterally. Dictated by: Nolan Ulloa M.D. on 10/26/2016 at 19:26 Approved by: Nolan Ulloa M.D. on 10/26/2016 at 19:27
[2016-10-26] MEDS ORDERED: Furosemide 10 mg/mL 4 mL Inj IVPUSH ONE (20:30)
[2016-10-27 01:13] LABS: Vitamin D, 25-Hydroxy 19.9 ng/mL (30.0-100.0)
[2016-10-27 02:00] VITALS: BP 126/73; PULSE 83; RESP 17; O2SAT 95
[2016-10-27 03:08] LABS: Vitamin B12 953 pg/mL (211-946)
[2016-10-27 05:49] VITALS: BP 135/68; PULSE 78; RESP 17; O2SAT 95
[2016-10-27] MEDS ORDERED: Furosemide 10 mg/mL 4 mL Inj IVPUSH ONE (08:30)
[2016-10-27 09:16] LABS: BASOPHILS % (AUTO) 0.1 % (0-3); EOSINOPHILS % (AUTO) 1.5 % (0-5); MONOCYTES % (AUTO) 7.8 % (4-12); Mean Corpuscular Hemoglobin 30.8 pg (27.0-35.0); Mean Corpuscular Volume 99.2 fL (81-100); NEUTROPHILS % (AUTO) 66.6 % (40-74); Platelet Count 174 bil/L (150-400)
[2016-10-27] MEDS: predniSONE 5 mg Tablet PO SCH (09:41)
[2016-10-27] MEDS: CeFAZolin Inj 1 GM in IV Premix 1 EACH IV SCH ×2 (09:45→20:24)
[2016-10-27 10:19] VITALS: BP 146/78; PULSE 70; PULSE 84; RESP 18; O2SAT 92
[2016-10-27 10:39] VITALS: PULSE 77
--- NOTE | 2016-10-27 11:23 | PCM.PNNEPH ---
RUDY STUART DO 10/27/16 1123: Subjective Date of Service Oct 27, 2016 Subjective She has remained with severe back and coccyx pain secondary to her ground-level fall, refusing physical therapy treatment and requiring Aguayo placement for bladder evacuation. Vital signs remained mostly stable one episode of mild hypertension. She continues to make urine though less than 500 mL per day, despite 2 doses of 40 mg IV Lasix. Overall she feels that her legs are not swollen she reports no shortness of breath or feelings of fluid retention. She did develop a low-grade fever and UA showed pyuria, antibiotics were initiated. Her creatinine continues to elevate, 3.53 today from 2.99 on admit. Exam Vital Signs Vital Sign - Last Date Time Temp Pulse Resp B/P Pulse Ox O2 Delivery O2 Flow Rate FiO2 10/27/16 10:39 77 10/27/16 10:19 36.9 18 146/78 92 Room Air Intake and Output 10/26/16 10/26/16 10/27/16 Cumulative From/Thru 15:00 23:00 07:00 10/25/16 10:47 - 10/27/16 05:49 Intake Total 400 ml 155 ml 555 ml Output Total 200 ml 400 ml 900 ml Balance 200 ml -245 ml -345 ml Intake Oral 400 ml 100 ml 500 ml IV Total 55 ml 55 ml Output Urine Total 200 ml 400 ml 900 ml # Voids 3 3 Exam General: Lying in hospital bed in no acute distress, well-developed, well- nourished, appropriately interactive HEENT: Normocephalic, atraumatic. Pale conjunctiva. Moist mucosa. Neck: Supple with full range of motion. No jugular venous distension. Cardiovascular: Regular rate and rhythm with no murmurs, rubs, or gallops appreciated Pulmonary: Clear to auscultation bilaterally with no crackles. Normal respiratory effort with no use of accessory muscles. Abdomen: Bowel tones present. Soft, nontender, nondistended. No hepatojugular reflux Extremities: Decreased skin turgor, no evidence of edema Skin: Normal temperature, decreased skin turgor. Neurological: Cranial nerves grossly intact. Psychiatric: Normal mood and affect. Alert and oriented to person, place, and time. Lab and Diagnostics Result Diagram: 10/27/16 0850 10/27/16 0850 X-Rays, CTs and MRIs PROCEDURE: US ABDOMEN DOPPLER INDICATIONS: check patency of blood supply to liver and kidney IMPRESSION: 1. Poorly seen [place] kidneys with a right abdominal transplant kidney. 2. The main portal vein and the hepatic veins are patent. Renal vasculature was not evaluated. Dictated by: Bennie Strauss M.D. on 10/26/2016 at 14:32 PROCEDURE: X-RAY CHEST ONE VIEW, PORTABLE ([id number]) INDICATIONS: fever IMPRESSION: Pleural effusions left greater than right with left basilar atelectasis or infiltrate. Dictated by: Bennie Strauss M.D. on 10/26/2016 at 16:00 12-lead ECG SR,incomplete RBBB Cardiac Echo Impressions Interpretation Summary The ejection fraction is estimated to be 70-75%. The left atrium is severely dilated. The right atrium is mild to moderately dilated. There is moderate mitral annular calcification. The mitral valve mean gradient is 4 mmHg. There is mild to moderate mitral regurgitation. The aortic valve is moderately calcified. There is no hemodynamically significant valvular aortic stenosis. There is mild tricuspid regurgitation. The right ventricular systolic pressure is estimated at 34 mmHg assuming a right atrial pressure of 3 mm Hg. Plan Impression Acute on chronic Kidney injury -Creatinine continues to trend up 3.5 today from 3 on admit, baseline~2.6 -Received 2 doses of IV Lasix -Minimal urinary output -Urine shows significant proteinuria suggesting chronic nephropathy -Prograf level pending -Renal ultrasound pending Hx of Hepatic and Renal transplant, 2004, present on admission. Active. -Continue Tacrolimus 1mg AM/HS. -Continue home Prednisone 5 mg daily. -Prograf level. Acute on chronic Normocytic Anemia. - Hgb on admit 7.7. Prior levels inpatient and outpatient baseline between 9 and 10. -Erythropoietin 60 MCG weekly -Oral iron supplementation Congestive Heart failure -ECHO as above -BMP on admit 12 K -Continue beta marisa Hypertension - Continue home Valsartan 80 mg HS. Urinary tract infection -Culture shows group B strep -Pro calcitonin 5.8 -Blood cultures pending -Antibiotics per primary team Claudette Gonzalez MD 10/28/16 9811: Exam Lab and Diagnostics Result Diagram: 10/27/16 0850 10/27/16 0850 Plan Impression Pt was seen and examined. Case discussed with Dr. Stuart. Agree with assessment and plan as outlined above. YONATHAN in the setting of kidney transplant and underlying of chronic allograft nephropathy. Diastolic CHF GrB strep UTI. s/p fall. Plan: Hold diuretic. Continue IV ancef. Continue prednisone and tacrolimus. Daily BMP. Renal US with doppler. DW Dr. Snyder, transplant hospital security officer at . Bo Moss MD. RUDY STUART DO Oct 27, 2016 11:23 Claudette Gonzalez MD Oct 28, 2016 14:58
[2016-10-27 14:00] VITALS: BP 146/78; PULSE 77; RESP 18; O2SAT 92
--- NOTE | 2016-10-27 15:31 | DRSVH ---
PROCEDURE: US RENAL TRANSPLANT EVALUATION INDICATIONS: YONATHAN TECHNIQUE: Real time scanning was performed of the transplant kidney, followed by color and pulsed D oppler interrogation of the renal vessels. COMPARISON: [facility], US, US ABD DOPPLER, 10/26/2016, 12:17. FINDINGS: Peacock-scale imaging: Kidney is 9.8 cm long; renal cortical thickness is 1.4 cm. No hydronephrosis. Renal cortex is normal in echogenicity. No perinephric fluid collections. Iliac artery peak systolic velocity: 159 cm/s. Proximal renal artery peak systolic velocity: 20 cm/s. Renal vein: Patent with normal waveform morphology. Iliac vein: Patent with normal waveform morphology. Renal parenchyma perfusion: normal vascularization by color Doppler. Renal resistive index (superior, mid, inferior): 0.84, 0.83, 0.81. Bladder: Pre-void bladder volume is empty with a Aguayo catheter. IMPRESSION: 1. The transplant kidney demonstrates mild cortical thinning. 2. No hydronephrosis. 3. Increased resistive index of transplant kidney. 4. Renal artery and renal vein (transplant kidney) are patent. Dictated by: Nolan Ulloa M.D. on 10/27/2016 at 15:24 Transcribed by: SCOTT on 10/27/2016 at 15:30 Approved by: Nolan Ulloa M.D. on 10/28/2016 at 9:08
[2016-10-27] MEDS: Darbepoetin Alfa 60 mCg/0.3 mL Inj SUBQ SCH (16:44)
[2016-10-27] MEDS: Heparin 5,000 Unit/mL Inj SUBQ SCH ×2 (17:20→20:35)
--- NOTE | 2016-10-27 17:20 | PCM.PNMED ---
Subjective Date of Service Oct 27, 2016 Subjective continues to have low back pain but improved.YONATHAN slightly worse. Exam Vital Signs Vital Sign - Last Date Time Temp Pulse Resp B/P Pulse Ox O2 Delivery O2 Flow Rate FiO2 10/27/16 10:39 77 10/27/16 10:19 36.9 18 146/78 92 Room Air Intake and Output 10/26/16 10/26/16 10/27/16 Cumulative From/Thru 15:00 23:00 07:00 10/25/16 10:47 - 10/27/16 05:49 Intake Total 400 ml 155 ml 555 ml Output Total 200 ml 400 ml 900 ml Balance 200 ml -245 ml -345 ml Intake Oral 400 ml 100 ml 500 ml IV Total 55 ml 55 ml Output Urine Total 200 ml 400 ml 900 ml # Voids 3 3 Exam General: No acute distress, well-developed, well-nourished, appropriately interactive HEENT: Normocephalic, atraumatic. External ears without defect. Pupils equal, round, and reactive to light and accommodation. Anicteric sclerae, moist conjunctivae, and no lid lag. Oropharynx free of erythema and cobble stoning with moist mucosa. Neck: Supple with full range of motion. No jugular venous distension. No bruits. No lymphadenopathy or thyromegaly. Cardiovascular: Regular rate and rhythm with no murmurs, rubs, or gallops appreciated Pulmonary: Clear to auscultation bilaterally with no crackles, wheezes, or rhonchi. Normal respiratory effort with no use of accessory muscles. Abdomen: Bowel tones present. Soft, nontender, nondistended. No hepatosplenomegaly or masses appreciated. Extremities: No clubbing, cyanosis, edema, or lymphadenopathy appreciated. Skin: Normal temperature, turgor, and texture; no rash, ulcers, or subcutaneous nodules appreciated. Neurological: Cranial nerves grossly intact. Normal muscle strength, tone, and bulk. Reflexes, coordination, and sensory function within normal limits. Ambulates with the aid of a front wheeled walker. Psychiatric: Normal mood and affect. Alert and oriented to person, place, and time. MSK: Left paraspinal thoracic tenderness. IVs and Medications Medications Reviewed: Medications were reviewed in detail Lab and Diagnostics Result Diagram: 10/27/16 0850 10/27/16 0850 X-Rays, CTs and MRIs PROCEDURE: US ABDOMEN DOPPLER INDICATIONS: check patency of blood supply to liver and kidney IMPRESSION: 1. Poorly seen [place] kidneys with a right abdominal transplant kidney. 2. The main portal vein and the hepatic veins are patent. Renal vasculature was not evaluated. Dictated by: Bennie Strauss M.D. on 10/26/2016 at 14:32 PROCEDURE: X-RAY CHEST ONE VIEW, PORTABLE ([id number]) INDICATIONS: fever IMPRESSION: Pleural effusions left greater than right with left basilar atelectasis or infiltrate. Dictated by: Bennie Strauss M.D. on 10/26/2016 at 16:00 12-lead ECG SR,incomplete RBBB Cardiac Echo Impressions Interpretation Summary The ejection fraction is estimated to be 70-75%. The left atrium is severely dilated. The right atrium is mild to moderately dilated. There is moderate mitral annular calcification. The mitral valve mean gradient is 4 mmHg. There is mild to moderate mitral regurgitation. The aortic valve is moderately calcified. There is no hemodynamically significant valvular aortic stenosis. There is mild tricuspid regurgitation. The right ventricular systolic pressure is estimated at 34 mmHg assuming a right atrial pressure of 3 mm Hg. Assessment & Plan Ms. Jelena Merritt is a very pleasant 81 year old lady with a past medical history of hepatic and bilateral renal transplants in 2004, hypertension, DM, presented to the [facility] Emergency Department due to back pain after a fall from ground level. # Acute UTI -tachycardia at 110,low grade fever,pyuria,procal elevated at 5 -urine culture GBS -started cefepime, switched to unsafe 10/27 -uti probably caused the fall yesterday # Acute on chronic Kidney injury. Present on admission. Active. - Creatinine on admission 2.99, baseline ~ 2.6. worsened to 3. 5 today -US KUB transplant unremarkable - Avoid nephrotoxic insults. -gan placed for I/O and incontinence -nephrology Dr Moss following # Elevated troponin -due to YONATHAN on CKD ,will trend -ASA 1 dose given -LA severely dilated on echo,RVSP 34,d-dimer elated ,will consider VQ scan if trends up .LE duplex negative . # Elevated d-dimer -patient recently tretaed with lasix for anasarca ,no LE asymetry now -LA severely dilated on echo,RVSP 34,d-dimer elated , .not a candidate for CTA .LE duplex negative . # Acute lumbar Back pain, 2nd to traumatic Fall from Ground level. Present on admission. Active. - CXR as above no fracture. patient refused low back CT due to concern of pain when moving ,agree to have today . Will give morphine prior to CT -pain control with morphine - Physical therapy eval ordered. - fall due to UTI # GLF -due to UTI -Low vitamin D at 19.9 noted. Started vitamin D 1000 units daily # suspected Congestive Heart failure, unknown chronicity, present on admission. Active. - ECHO as above - BNP on admit 12k. - EKG reviewed - Sinus rhythm, PAC's, RBBB. -hold home furosemide 20 mg daily. # Hx of Hepatic and Renal transplant, 2004, present on admission. Active. - Continue Tacrolimus 1mg AM/HS. - Continue home Prednisone 5 mg daily. # Acute on chronic Normocytic Anemia. Present on admission. Stable. - Hgb on admit 7.7. Prior levels inpatient and outpatient baseline between 9 and 10. - Stool guaiac ordered. - Following HH, pediatric tubes daily. # Hyperlipemia - Continue home Pravastatin 40 mg daily. # Hypertension - Continue home Valsartan 80 mg HS. # Depression - Continue home Sertraline 20 mg HS. Acetaminophen for mild pain when necessary. Bowel regimen Senna and MiraLAX scheduled and PRN. Zofran when necessary for nausea and vomiting. SubQ heparin for now. SCDs in place. inpatient full code VTE Mechanical Devices: Intermittant Pneumatic CD Resuscitation Status: CPR: Attempt Resuscitation Norris Rodriguez MD Oct 27, 2016 17:20 Norris Rodriguez MD Oct 27, 2016 17:20
[2016-10-27] MEDS ORDERED: Cefepime 1,000 MG in Dextrose 5% Minibag Plus 50 ML IV SCH (18:00)
--- NOTE | 2016-10-27 18:27 | DRSVH ---
PROCEDURE: CT LUMBAR SPINE WITHOUT CONTRAST ([id number]) INDICATIONS: back pain,s/p fall TECHNIQUE: Noncontrast 3 mm thick sections acquired from the T12 level to the sacrum. Sagittal and coronal refo rmats were constructed. For radiation dose reduction, the following was used: automated exposure co ntrol. COMPARISON: None. FINDINGS: Image quality: Excellent. Bones: There is normal bony alignment. No acute vertebral body compression fractures. No suspiciou s lytic or blastic bony lesions. Central spinal caliber is of normal overall caliber. No pars defec ts. L2 level degenerative disc disease and facet arthropathy are noted. Soft tissues: Kidneys are atrophied bilaterally. No retroperitoneal masses or hematomas. Visualize d aorta is normal in caliber. Scattered atherosclerotic calcifications are noted in the visualized ab dominal and pelvic vasculature. IMPRESSION: 1. No fracture. No acute osseous lesion. If there are persistent symptoms or continued clinical susp icion for pathology, then MRI should be considered for further evaluation. 2. Multilevel degenerative disc disease and facet arthropathy which may be causing significant bilat eral L3-L4 and L4-L5 as well as the left L5-S1 neural foraminal narrowing. Dictated by: Leigh Ann Lilly MD, PhD on 10/27/2016 at 18:22 Approved by: Leigh Ann Lilly MD, PhD on 10/27/2016 at 18:25
[2016-10-27 18:31] VITALS: BP 170/69; PULSE 75; RESP 22; O2SAT 92
[2016-10-28] VITALS (11 sets, daily range): BP systolic 153–189; BP diastolic 64–82; PULSE 73–87; RESP 16–25; O2SAT 91–99
[2016-10-28] MEDS ORDERED: Nitroglycerin 2% 1 Gm Ointment TOPICAL ONE (04:45)
[2016-10-28] MEDS: Heparin 5,000 Unit/mL Inj SUBQ SCH ×2 (06:30→17:32)
[2016-10-28 06:55] LABS: BASOPHILS % (AUTO) 0.2 % (0-3); MONOCYTES % (AUTO) 7.8 % (4-12); Mean Corpuscular Hemoglobin 30.8 pg (27.0-35.0); Platelet Count 209 bil/L (150-400)
[2016-10-28 08:33] LABS: TROPONIN T 0.038 ug/L (0.0-0.011)
[2016-10-28] MEDS: predniSONE 5 mg Tablet PO SCH (08:33)
[2016-10-28] MEDS: CeFAZolin Inj 1 GM in IV Premix 1 EACH IV SCH ×2 (10:00→20:27)
--- NOTE | 2016-10-28 11:07 | PCM.PNNEPH ---
RUDY STUART DO 10/28/16 1107: Subjective Date of Service Oct 28, 2016 Subjective Overnight patient reported 0-10 pain while laying still which increased to 8 out of 10 pain upon movement, pain somewhat relieved with morphine. Her blood pressure remains hypertensive despite metoprolol and she is complaining of shortness of breath and chest pain requiring nitroglycerin paste and O2 administration overnight. Physical therapy continues to see patient those had minimal success secondary to patient pain. Urinary output is approximately 1 L yesterday, half a liter today thus far. H&H 7/24.5 today after receiving Arancept injection yesterday. Chem panel shows continual downward trend of creatinine and troponin. Family present in room at time of interview with multiple questions asked and answered. Moving forward we will continue to monitor kidney function and urinary output and blood pressure medication response anticipated discharge to [facility] facility. Exam Vital Signs Vital Sign - Last Date Time Temp Pulse Resp B/P Pulse Ox O2 Delivery O2 Flow Rate FiO2 10/28/16 10:22 82 10/28/16 08:36 20 158/76 97 Room Air 10/28/16 04:24 36.7 Intake and Output 10/27/16 10/27/16 10/28/16 Cumulative From/Thru 15:00 23:00 07:00 10/25/16 10:47 - 10/28/16 05:53 Intake Total 602 ml 200 ml 1357 ml Output Total 500 ml 450 ml 1850 ml Balance 102 ml -250 ml -493 ml Intake Oral 500 ml 1000 ml IV Total 102 ml 200 ml 357 ml Output Urine Total 500 ml 450 ml 1850 ml # Voids 3 Exam General: Lying in hospital bed in no acute distress, well-developed, well- nourished, appropriately interactive HEENT: Normocephalic, atraumatic. Pale conjunctiva. Moist mucosa. Cardiovascular: Regular rate and rhythm with no murmurs, rubs, or gallops appreciated Pulmonary: Normal respiratory effort with no use of accessory muscles. Mild Inspiratory crackles heard anterior lobes complete pulmonary exam difficult secondary to patient pain Abdomen: Soft, nontender, nondistended. Extremities: Decreased skin turgor, no evidence of edema Skin: Normal temperature, decreased skin turgor. Neurological: Cranial nerves grossly intact. Psychiatric: Normal mood and affect. Alert and oriented to person, place, and time. Askew skeletal: Severe thoracic paraspinal tenderness lumbar/sacral tenderness on palpation. Lab and Diagnostics Result Diagram: 10/28/16 0630 10/28/16 0630 X-Rays, CTs and MRIs . X-RAY CHEST ONE VIEW, PORTABLE IMPRESSION: Reduced inspiratory volume, without identified trauma. Dictated by: Francisco Rivera M.D. on 10/25/2016 X-RAY CHEST ONE VIEW, PORTABLE IMPRESSION: Pleural effusions left greater than right with left basilar atelectasis or infiltrate. Dictated by: Bennie Strauss M.D. on 10/26/2016 US ABDOMEN DOPPLER IMPRESSION: 1. Poorly seen [place] kidneys with a right abdominal transplant kidney. 2. The main portal vein and the hepatic veins are patent. Renal vasculature was not evaluated. Dictated by: Bennie Strauss M.D. on 10/26/2016 US VENOUS LEG DUPLEX BILATERAL IMPRESSION: No DVT in lower extremities bilaterally. Dictated by: Nolan Ulloa M.D. on 10/26/2016 US RENAL TRANSPLANT EVALUATION IMPRESSION: 1. The transplant kidney demonstrates mild cortical thinning. 2. No hydronephrosis. 3. Increased resistive index of transplant kidney. 4. Renal artery and renal vein (transplant kidney) are patent. Dictated by: Nolan Ulloa M.D. on 10/27/2016 CT LUMBAR SPINE WITHOUT CONTRAST IMPRESSION: 1. No fracture. No acute osseous lesion. If there are persistent symptoms or continued clinical suspicion for pathology, then MRI should be considered for further evaluation. 2. Multilevel degenerative disc disease and facet arthropathy which may be causing significant bilateral L3-L4 and L4-L5 as well as the left L5-S1 neural foraminal narrowing. Dictated by: Leigh Ann Lilly MD, PhD on 10/27/2016 12-lead ECG SR,incomplete RBBB Cardiac Echo Impressions Interpretation Summary The ejection fraction is estimated to be 70-75%. The left atrium is severely dilated. The right atrium is mild to moderately dilated. There is moderate mitral annular calcification. The mitral valve mean gradient is 4 mmHg. There is mild to moderate mitral regurgitation. The aortic valve is moderately calcified. There is no hemodynamically significant valvular aortic stenosis. There is mild tricuspid regurgitation. The right ventricular systolic pressure is estimated at 34 mmHg assuming a right atrial pressure of 3 mm Hg. Plan Impression Acute on chronic Kidney injury -Creatinine baseline~2.6, 3 on admit with peak of 3.5 -Creatinine starting downward trend today -Received 2 doses of IV Lasix -Urinary output improving -Urine shows significant proteinuria suggesting chronic nephropathy -Prograf level within normal limits -Renal ultrasound shows no hydronephrosis and good blood flow to kidney -Consider reinitiation of diuretic therapy tomorrow Hx of Hepatic and Renal transplant, 2004, present on admission. Active. -Continue Tacrolimus 1mg AM/HS. -Continue home Prednisone 5 mg daily. -Prograf level normal Acute on chronic Normocytic Anemia. -Hgb on admit 7.7. Prior levels inpatient and outpatient baseline between 9 and 10. -Hgb 77 today, continue to monitor -Erythropoietin 60 MCG weekly -Oral iron supplementation Congestive Heart failure -ECHO as above -BMP on admit 12 K -Increased metoprolol to 50 mg twice a day Hypertension - Continue home Valsartan 80 mg HS. - Increased metoprolol 50 mg twice a day -Consider diuretic reinitiation Urinary tract infection -Culture shows group B strep -Pro calcitonin 5.8 -Blood cultures negative to date -Continue Antibiotics per primary team -Consider DC Aguayo cath Claudette Gonzalez MD 10/28/16 1502: Exam Lab and Diagnostics Result Diagram: 10/28/16 0630 10/28/16 0630 Plan Impression Pt was seen and examined. Case discussed with Dr. Stuart. Agree with assessment and plan as outlined above. Bo Moss MD. RUDY STUART DO Oct 28, 2016 11:07 Claudette Gonzalez MD Oct 28, 2016 15:02
[2016-10-28] MEDS: Nystatin 100,000 Unit/Gm 15 Gm Powder TOPICAL SCH ×2 (12:02→20:29)
[2016-10-28] MEDS ORDERED: Furosemide 10 mg/mL 4 mL Inj IVPUSH ONE (12:15)
[2016-10-28] MEDS: Lidocaine Topical 5% Patch TOPICAL SCH (14:28)
--- NOTE | 2016-10-28 16:52 | PCM.PNMED ---
Subjective Date of Service Oct 28, 2016 Subjective Patient had slightly worsened breathing. Desaturated to 87 on room air during PT eval. Exam Vital Signs Vital Sign - Last Date Time Temp Pulse Resp B/P Pulse Ox O2 Delivery O2 Flow Rate FiO2 10/28/16 13:59 77 16 99 Nasal Cannula 2.00 10/28/16 13:15 36.6 157/74 Intake and Output 10/27/16 10/27/16 10/28/16 Cumulative From/Thru 15:00 23:00 07:00 10/25/16 10:47 - 10/28/16 05:53 Intake Total 602 ml 200 ml 1357 ml Output Total 500 ml 450 ml 1850 ml Balance 102 ml -250 ml -493 ml Intake Oral 500 ml 1000 ml IV Total 102 ml 200 ml 357 ml Output Urine Total 500 ml 450 ml 1850 ml # Voids 3 Exam General: No acute distress, well-developed, well-nourished, appropriately interactive HEENT: Normocephalic, atraumatic. External ears without defect. Pupils equal, round, and reactive to light and accommodation. Neck: Supple with full range of motion. No jugular venous distension. No bruits. No lymphadenopathy or thyromegaly. Cardiovascular: Regular rate and rhythm with no murmurs, rubs, or gallops appreciated Pulmonary: Crackles on lower chest bilaterally Abdomen: Bowel tones present. Soft, nontender, nondistended. No hepatosplenomegaly or masses appreciated. Extremities: No clubbing, cyanosis, edema, or lymphadenopathy appreciated. Skin: Normal temperature, turgor, and texture; no rash, ulcers, or subcutaneous nodules appreciated. Neurological: Cranial nerves grossly intact. Normal muscle strength, tone, and bulk. Reflexes, coordination, and sensory function within normal limits. Ambulates with the aid of a front wheeled walker. Psychiatric: Normal mood and affect. Alert and oriented to person, place, and time. MSK: Left paraspinal thoracic tenderness. IVs and Medications Medications Reviewed: Medications were reviewed in detail Lab and Diagnostics Result Diagram: 10/28/16 0630 10/28/16 0630 X-Rays, CTs and MRIs . X-RAY CHEST ONE VIEW, PORTABLE IMPRESSION: Reduced inspiratory volume, without identified trauma. Dictated by: Francisco Rivera M.D. on 10/25/2016 X-RAY CHEST ONE VIEW, PORTABLE IMPRESSION: Pleural effusions left greater than right with left basilar atelectasis or infiltrate. Dictated by: Bennie Strauss M.D. on 10/26/2016 US ABDOMEN DOPPLER IMPRESSION: 1. Poorly seen [place] kidneys with a right abdominal transplant kidney. 2. The main portal vein and the hepatic veins are patent. Renal vasculature was not evaluated. Dictated by: Bennie Strauss M.D. on 10/26/2016 US VENOUS LEG DUPLEX BILATERAL IMPRESSION: No DVT in lower extremities bilaterally. Dictated by: Nolan Ulloa M.D. on 10/26/2016 US RENAL TRANSPLANT EVALUATION IMPRESSION: 1. The transplant kidney demonstrates mild cortical thinning. 2. No hydronephrosis. 3. Increased resistive index of transplant kidney. 4. Renal artery and renal vein (transplant kidney) are patent. Dictated by: Nolan Ulloa M.D. on 10/27/2016 CT LUMBAR SPINE WITHOUT CONTRAST IMPRESSION: 1. No fracture. No acute osseous lesion. If there are persistent symptoms or continued clinical suspicion for pathology, then MRI should be considered for further evaluation. 2. Multilevel degenerative disc disease and facet arthropathy which may be causing significant bilateral L3-L4 and L4-L5 as well as the left L5-S1 neural foraminal narrowing. Dictated by: Leigh Ann Lilly MD, PhD on 10/27/2016 12-lead ECG SR,incomplete RBBB Cardiac Echo Impressions Interpretation Summary The ejection fraction is estimated to be 70-75%. The left atrium is severely dilated. The right atrium is mild to moderately dilated. There is moderate mitral annular calcification. The mitral valve mean gradient is 4 mmHg. There is mild to moderate mitral regurgitation. The aortic valve is moderately calcified. There is no hemodynamically significant valvular aortic stenosis. There is mild tricuspid regurgitation. The right ventricular systolic pressure is estimated at 34 mmHg assuming a right atrial pressure of 3 mm Hg. Assessment & Plan Ms. Jelena Merritt is a very pleasant 81 year old lady with a past medical history of hepatic and bilateral renal transplants in 2004, hypertension, DM, presented to the [facility] Emergency Department due to back pain after a fall from ground level. # Acute complicated UTI -tachycardia at 110,low grade fever,pyuria,procal elevated at 5 -urine culture GBS -started cefepime, switched to Ancef 10/27 -uti probably caused the fall # Acute on chronic Kidney injury. Present on admission. Active. - Creatinine on admission 2.99, baseline ~ 2.6. peak 3.5 , improved to 3.3 today -US KUB transplant unremarkable - Avoid nephrotoxic insults. -gan placed for I/O and incontinence -lasix 40mg iv once today -nephrology Dr Moss following # Elevated troponin -due to YONATHAN on CKD , trended down -ASA 1 dose given initially -LA severely dilated on echo,RVSP 34,d-dimer elated ,.LE duplex negative . # Elevated d-dimer -unclear significance -LA severely dilated on echo,RVSP 34,d-dimer elated , .not a candidate for CTA .LE duplex negative . # Acute lumbar Back pain, 2nd to traumatic Fall from Ground level. Present on admission. Active. - CT lumbar negative for fracture -pain control with morphine - Physical therapy eval ordered. - fall due to UTI # GLF -due to UTI -Low vitamin D at 19.9 noted. Started vitamin D 1000 units daily # suspected chronic diastolic Congestive Heart failure, present on admission. Active. - ECHO as above with norml EF - BNP on admit 12k. - EKG reviewed - Sinus rhythm, PAC's, RBBB. -Initially held home furosemide 20 mg daily. will give lasix 40mg iv x 1 per nephrology # Hx of Hepatic and Renal transplant, 2004, present on admission. Active. - Continue Tacrolimus 1mg AM/HS. - Continue home Prednisone 5 mg daily. # Acute on chronic Normocytic Anemia. Present on admission. Stable. - Hgb on admit 7.7. Prior levels inpatient and outpatient baseline between 9 and 10. - Stool guaiac ordered. - Following HH, pediatric tubes daily. # Hyperlipemia - Continue home Pravastatin 40 mg daily. # Hypertension - Continue home Valsartan 80 mg HS. # Depression - Continue home Sertraline 20 mg HS. Acetaminophen for mild pain when necessary. Bowel regimen Senna and MiraLAX scheduled and PRN. Zofran when necessary for nausea and vomiting. SubQ heparin for now. SCDs in place. inpatient full code Disposition: Possible discharge tomorrow to half-way facility if kidney function continues to improve VTE Mechanical Devices: Intermittant Pneumatic CD Resuscitation Status: CPR: Attempt Resuscitation Norris Rodriguez MD Oct 28, 2016 16:52
[2016-10-29] VITALS (14 sets, daily range): BP systolic 128–200; BP diastolic 64–103; PULSE 61–83; RESP 16–18; O2SAT 89–95
[2016-10-29] MEDS: Heparin 5,000 Unit/mL Inj SUBQ SCH ×3 (00:30→16:38)
[2016-10-29] MEDS ORDERED: MeTOProlol 1 mg/mL 5 mL Inj IVPUSH ONE (04:40)
[2016-10-29 06:26] LABS: BASOPHILS % (AUTO) 0.1 % (0-3); EOSINOPHILS % (AUTO) 2.2 % (0-5); MONOCYTES % (AUTO) 9.5 % (4-12); Mean Corpuscular Hemoglobin 31.5 pg (27.0-35.0); NEUTROPHILS % (AUTO) 61.4 % (40-74); Platelet Count 214 bil/L (150-400)
[2016-10-29] MEDS: CeFAZolin Inj 1 GM in IV Premix 1 EACH IV SCH ×2 (08:44→20:52)
[2016-10-29] MEDS: Nystatin 100,000 Unit/Gm 15 Gm Powder TOPICAL SCH ×2 (08:45→20:56)
[2016-10-29] MEDS: Lidocaine Topical 5% Patch TOPICAL SCH (08:47)
[2016-10-29] MEDS: predniSONE 5 mg Tablet PO SCH (08:47)
--- NOTE | 2016-10-29 09:16 | PCM.PNNEPH ---
RUDY STUART DO 10/29/16 0916: Subjective Date of Service Oct 29, 2016 Subjective Yesterday Pt desaturated during PT eval. Still having significant pain in her thoracic and lumbar area. She was given 40mg IV Lasix yesterday with 0.8L resultant urinary output. Cr has remained at ~3.6. VS overnight show a significant increase in her HTN despite increasing her metoprolol dose yesterday. It remains elevated after metoprolol 5mg IV push and 5mg Norvasc. Exam Vital Signs Vital Sign - Last Date Time Temp Pulse Resp B/P Pulse Ox O2 Delivery O2 Flow Rate FiO2 10/29/16 06:35 61 199/103 10/29/16 03:00 36.8 17 95 Room Air 10/28/16 17:38 2.00 Intake and Output 10/28/16 10/28/16 10/29/16 Cumulative From/Thru 15:00 23:00 07:00 10/25/16 10:47 - 10/29/16 05:01 Intake Total 1237 ml 405 ml 2999 ml Output Total 650 ml 800 ml 3300 ml Balance 587 ml -395 ml -301 ml Intake Oral 1160 ml 350 ml 2510 ml IV Total 77 ml 55 ml 489 ml Output Urine Total 650 ml 800 ml 3300 ml Urine/Stool Mix 0 ml 0 ml # Voids 3 # Bowel Movements 0 0 Exam General: Lying in hospital bed in mild acute distress, well-developed, well- nourished, appropriately interactive HEENT: Normocephalic, atraumatic. Pale conjunctiva. Moist mucosa. Cardiovascular: Regular rate and rhythm with no murmurs, rubs, or gallops appreciated Pulmonary: Normal respiratory effort with no use of accessory muscles. Clear to auscultation upper anterior lobes, cannot auscultate posterior lobes secondary to Pt pain Abdomen: Soft, nontender, nondistended. Extremities: No Edema Skin: Normal temperature, no rashes Neurological: Cranial nerves grossly intact. Psychiatric: Normal mood and affect. Alert and oriented to person, place, and time. MSK: Severe thoracic paraspinal tenderness lumbar/sacral tenderness on palpation. Lab and Diagnostics Result Diagram: 10/29/1660410/29/16604 X-Rays, CTs and MRIs . X-RAY CHEST ONE VIEW, PORTABLE IMPRESSION: Reduced inspiratory volume, without identified trauma. Dictated by: Francisco Rivera M.D. on 10/25/2016 X-RAY CHEST ONE VIEW, PORTABLE IMPRESSION: Pleural effusions left greater than right with left basilar atelectasis or infiltrate. Dictated by: Bennie Strauss M.D. on 10/26/2016 US ABDOMEN DOPPLER IMPRESSION: 1. Poorly seen [place] kidneys with a right abdominal transplant kidney. 2. The main portal vein and the hepatic veins are patent. Renal vasculature was not evaluated. Dictated by: Bennie Strauss M.D. on 10/26/2016 US VENOUS LEG DUPLEX BILATERAL IMPRESSION: No DVT in lower extremities bilaterally. Dictated by: Nolan Ulloa M.D. on 10/26/2016 US RENAL TRANSPLANT EVALUATION IMPRESSION: 1. The transplant kidney demonstrates mild cortical thinning. 2. No hydronephrosis. 3. Increased resistive index of transplant kidney. 4. Renal artery and renal vein (transplant kidney) are patent. Dictated by: Nolan Ulloa M.D. on 10/27/2016 CT LUMBAR SPINE WITHOUT CONTRAST IMPRESSION: 1. No fracture. No acute osseous lesion. If there are persistent symptoms or continued clinical suspicion for pathology, then MRI should be considered for further evaluation. 2. Multilevel degenerative disc disease and facet arthropathy which may be causing significant bilateral L3-L4 and L4-L5 as well as the left L5-S1 neural foraminal narrowing. Dictated by: Leigh Ann Lilly MD, PhD on 10/27/2016 12-lead ECG SR,incomplete RBBB Cardiac Echo Impressions Interpretation Summary The ejection fraction is estimated to be 70-75%. The left atrium is severely dilated. The right atrium is mild to moderately dilated. There is moderate mitral annular calcification. The mitral valve mean gradient is 4 mmHg. There is mild to moderate mitral regurgitation. The aortic valve is moderately calcified. There is no hemodynamically significant valvular aortic stenosis. There is mild tricuspid regurgitation. The right ventricular systolic pressure is estimated at 34 mmHg assuming a right atrial pressure of 3 mm Hg. Plan Impression Acute on chronic Kidney injury -Creatinine baseline~2.6, 3 on admit with peak of 3.5. 3.36 today -Creatinine remains at ~ 3.36 x 2 days -40 mg IV Lasix yesterday -Urinary output improving -Urine shows significant proteinuria suggesting chronic nephropathy -Prograf level within normal limits -Renal ultrasound shows no hydronephrosis and good blood flow to kidney Hx of Hepatic and Renal transplant, 2005, present on admission. Active. -Continue Tacrolimus 1mg AM/HS. -Continue home Prednisone 5 mg daily. -Prograf level normal Acute on chronic Normocytic Anemia. -Hgb on admit 7.7. Prior levels inpatient and outpatient baseline between 9 and 10. -Hgb 8 today, continue to monitor -Erythropoietin 60 MCG weekly -Oral iron supplementation Congestive Heart failure -ECHO as above -BMP on admit 12 K -Increased metoprolol to 50 mg twice a day Hypertension - Norvasc 5mg and Metoprolol 5mg IV push given pvernight with little effect - Home medication Valsartan 80 mg HS, held 2/2 renal function - Stop metoprolol - Start Labetelol 300mg TID - Give additional dose of IV Lasix 40mg TODAY 10/29/2016 - Consider addition of CCB if HTN still refractory to medication Urinary tract infection -Culture shows group B strep -Pro calcitonin 5.8 -Blood cultures negative to date -Continue Antibiotics per primary team -Consider DC Aguayo cath Claudette Gonzalez MD 10/29/16 1444: Exam Lab and Diagnostics Result Diagram: 10/29/16 0605 10/29/16 0605 Plan Impression Pt was seen and examined. Case discussed with Dr. Stuart. Agree with assessment and plan as outlined above. Switch metoprolol to labetalol for a better BP control. Repeat K and EKG. Continue tacrolimus and prednisone. Give another dose of IV lasix 40 mg x1. W. MD Ajay. RUDY STUART DO Oct 29, 2016 09:16 Claudette Gonzalez MD Oct 29, 2016 14:44
[2016-10-29] MEDS: Ondansetron 2 mg/mL 2 mL Inj IVPUSH PRN ×2 (09:56→13:36)
[2016-10-29] MEDS ORDERED: Furosemide 10 mg/mL 4 mL Inj IVPUSH ONE (10:20)
[2016-10-29] MEDS ORDERED: MetoCLOpramide 5 mg/mL 2 mL Inj IVPUSH PRN (14:05)
[2016-10-29] MEDS ORDERED: MetoCLOpramide 5 mg/mL 2 mL Inj IV ONE (14:05)
--- NOTE | 2016-10-29 15:19 | PCM.PNMED ---
Subjective Date of Service Oct 29, 2016 Subjective Patient complains of nausea today. Continues to have left shoulder and back pain despite lidocaine patch placed. Breathing unchanged. Exam Vital Signs Vital Sign - Last Date Time Temp Pulse Resp B/P Pulse Ox O2 Delivery O2 Flow Rate FiO2 10/29/16 13:45 36.4 83 16 168/76 90 Room Air 10/28/16 17:38 2.00 Intake and Output 10/28/16 10/28/16 10/29/16 Cumulative From/Thru 15:00 23:00 07:00 10/25/16 10:47 - 10/29/16 05:01 Intake Total 1237 ml 405 ml 2999 ml Output Total 650 ml 800 ml 3300 ml Balance 587 ml -395 ml -301 ml Intake Oral 1160 ml 350 ml 2510 ml IV Total 77 ml 55 ml 489 ml Output Urine Total 650 ml 800 ml 3300 ml Urine/Stool Mix 0 ml 0 ml # Voids 3 # Bowel Movements 0 0 Exam General: No acute distress, well-developed, well-nourished, appropriately interactive HEENT: Normocephalic, atraumatic. External ears without defect. Pupils equal, round, and reactive to light and accommodation. Neck: Supple with full range of motion. No jugular venous distension. No bruits. No lymphadenopathy or thyromegaly. Cardiovascular: Regular rate and rhythm with no murmurs, rubs, or gallops appreciated Pulmonary: Crackles on lower chest bilaterally Abdomen: Bowel tones present. Soft, nontender, nondistended. No hepatosplenomegaly or masses appreciated. Extremities: No clubbing, cyanosis, edema, or lymphadenopathy appreciated. Skin: Normal temperature, turgor, and texture; no rash, ulcers, or subcutaneous nodules appreciated. Neurological: Cranial nerves grossly intact. Normal muscle strength, tone, and bulk. Reflexes, coordination, and sensory function within normal limits. Ambulates with the aid of a front wheeled walker. Psychiatric: Normal mood and affect. Alert and oriented to person, place, and time. MSK: Left paraspinal thoracic tenderness. IVs and Medications Medications Reviewed: Medications were reviewed in detail Lab and Diagnostics Result Diagram: 10/29/16 0605 10/29/16 1106 X-Rays, CTs and MRIs . X-RAY CHEST ONE VIEW, PORTABLE IMPRESSION: Reduced inspiratory volume, without identified trauma. Dictated by: Francisco Rivera M.D. on 10/25/2016 X-RAY CHEST ONE VIEW, PORTABLE IMPRESSION: Pleural effusions left greater than right with left basilar atelectasis or infiltrate. Dictated by: Bennie Strauss M.D. on 10/26/2016 US ABDOMEN DOPPLER IMPRESSION: 1. Poorly seen [place] [facility] with a right abdominal transplant kidney. 2. The main portal vein and the hepatic veins are patent. Renal vasculature was not evaluated. Dictated by: Bennie Strauss M.D. on 10/26/2016 US VENOUS LEG DUPLEX BILATERAL IMPRESSION: No DVT in lower extremities bilaterally. Dictated by: Nolan Ulloa M.D. on 10/26/2016 US RENAL TRANSPLANT EVALUATION IMPRESSION: 1. The transplant kidney demonstrates mild cortical thinning. 2. No hydronephrosis. 3. Increased resistive index of transplant kidney. 4. Renal artery and renal vein (transplant kidney) are patent. Dictated by: Nolan Ulloa M.D. on 10/27/2016 CT LUMBAR SPINE WITHOUT CONTRAST IMPRESSION: 1. No fracture. No acute osseous lesion. If there are persistent symptoms or continued clinical suspicion for pathology, then MRI should be considered for further evaluation. 2. Multilevel degenerative disc disease and facet arthropathy which may be causing significant bilateral L3-L4 and L4-L5 as well as the left L5-S1 neural foraminal narrowing. Dictated by: Leigh Ann Lilly MD, PhD on 10/27/2016 12-lead ECG SR,incomplete RBBB Cardiac Echo Impressions Interpretation Summary The ejection fraction is estimated to be 70-75%. The left atrium is severely dilated. The right atrium is mild to moderately dilated. There is moderate mitral annular calcification. The mitral valve mean gradient is 4 mmHg. There is mild to moderate mitral regurgitation. The aortic valve is moderately calcified. There is no hemodynamically significant valvular aortic stenosis. There is mild tricuspid regurgitation. The right ventricular systolic pressure is estimated at 34 mmHg assuming a right atrial pressure of 3 mm Hg. Assessment & Plan Ms. Jelena Merritt is a very pleasant 81 year old lady with a past medical history of hepatic and bilateral renal transplants in 2004, hypertension, DM, presented to the [facility] Emergency Department due to back pain after a fall from ground level. # Acute complicated UTI -tachycardia at 110,low grade fever,pyuria,procal elevated at 5 -urine culture GBS -started cefepime, switched to Ancef 10/27 -uti probably caused the fall # Acute on chronic Kidney injury. Present on admission. Active. - Creatinine on admission 2.99, baseline ~ 2.6. peak 3.5 , improved to 3.3 today -US KUB transplant unremarkable - Avoid nephrotoxic insults. -lasix 40mg iv once 10/28,10/29 -nephrology Dr Moss following # Elevated troponin -due to YONATHAN on CKD , trended down -ASA 1 dose given initially -LA severely dilated on echo,RVSP 34,d-dimer elated ,.LE duplex negative . # Hypertension - held home Valsartan 80 mg HS due to YONATHAN -nephrology switching metoprolol to labetalol . a dose of amlodipine given # Elevated d-dimer -unclear significance -LA severely dilated on echo,RVSP 34,d-dimer elated , .not a candidate for CTA .LE duplex negative . # Acute lumbar Back pain, 2nd to traumatic Fall from Ground level. Present on admission. Active. - CT lumbar negative for fracture -pain control with morphine - Physical therapy eval ordered. - fall due to UTI # GLF -due to UTI -Low vitamin D at 19.9 noted. Started vitamin D 1000 units daily # suspected chronic diastolic Congestive Heart failure, present on admission. Active. - ECHO as above with norml EF - BNP on admit 12k. - EKG reviewed - Sinus rhythm, PAC's, RBBB. -Initially held home furosemide 20 mg daily. will give lasix 40mg iv x 1 per nephrology # Hx of Hepatic and Renal transplant, 2004, present on admission. Active. - Continue Tacrolimus 1mg AM/HS. - Continue home Prednisone 5 mg daily. # Acute on chronic Normocytic Anemia. Present on admission. Stable. - Hgb on admit 7.7. Prior levels inpatient and outpatient baseline between 9 and 10. - Stool guaiac ordered. - Following HH, pediatric tubes daily. # Hyperlipemia - Continue home Pravastatin 40 mg daily. # Depression - Continue home Sertraline 20 mg HS. Acetaminophen for mild pain when necessary. Bowel regimen Senna and MiraLAX scheduled and PRN. Zofran when necessary for nausea and vomiting. SubQ heparin for now. SCDs in place. inpatient full code Disposition: Possible discharge tomorrow to detention facility if kidney function continues to improve VTE Mechanical Devices: Intermittant Pneumatic CD Resuscitation Status: CPR: Attempt Resuscitation Norris Rodriguez MD Oct 29, 2016 15:19
[2016-10-30] VITALS (10 sets, daily range): BP systolic 107–152; BP diastolic 58–72; PULSE 64–85; RESP 16–17; O2SAT 95–98
[2016-10-30] MEDS: Heparin 5,000 Unit/mL Inj SUBQ SCH ×3 (01:04→18:11)
[2016-10-30] MEDS: Lidocaine Topical 5% Patch TOPICAL SCH (08:11)
[2016-10-30] MEDS: CeFAZolin Inj 1 GM in IV Premix 1 EACH IV SCH ×2 (08:12→21:30)
[2016-10-30] MEDS: predniSONE 5 mg Tablet PO SCH (08:12)
[2016-10-30] MEDS: Nystatin 100,000 Unit/Gm 15 Gm Powder TOPICAL SCH ×2 (08:13→21:25)
[2016-10-30] MEDS ORDERED: Lactulose 20 Gm/30 mL 30 mL Syrup PO ONE ×2 (08:55→18:50)
[2016-10-30 09:40] LABS: BASOPHILS % (AUTO) 0.2 % (0-3); EOSINOPHILS % (AUTO) 2.8 % (0-5); MONOCYTES % (AUTO) 11.5 % (4-12); Mean Corpuscular Volume 98.7 fL (81-100); NEUTROPHILS % (AUTO) 58.2 % (40-74); Platelet Count 153 bil/L (150-400)
[2016-10-30 10:19] LABS: Magnesium 1.7 mg/dL (1.6-2.6)
--- NOTE | 2016-10-30 10:20 | DRSVH ---
PROCEDURE: X-RAY ABDOMEN, ONE VIEW ([id number]) INDICATIONS: vomiting TECHNIQUE: One view of the abdomen acquired. COMPARISON: [facility], CT, CT CHEST ABD PELVIS WO CON, 02/24/2015, 17:50. [facility], CT, CT LUMBAR SPINE WO CON, 10/27/2016, 18:13. FINDINGS: Surgical changes and devices: None. Bowel: Bowel gas pattern is normal. Soft tissues: No new suspicious abdominal calcifications in what appears to represent a peripherally calcified splenic artery aneurysm is seen again at the left upper quadrant. This was better visuali zed by CT scanning 02/24/15. Visualized solid organ contours appear normal in size. Bones: No suspicious bony lesions. IMPRESSION: Normal bowel gas pattern, no definite acute disease. 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 Dictated by: Francisco Rivera M.D. on 10/30/2016 at 10:17 Approved by: Francisco Rivera M.D. on 10/30/2016 at 10:18
[2016-10-30] MEDS ORDERED: Ferric Sod Gluc Complex Inj 125 MG in 0.9% Sodium Chloride 100 ML IV ONE (11:25)
[2016-10-30] MEDS ORDERED: 0.9% Sodium Chloride 250 ML IV ONE (11:25)
--- NOTE | 2016-10-30 11:27 | PCM.PNNEPH ---
Subjective Date of Service Oct 30, 2016 Subjective Patient appears to be more comfortable today Her blood pressure improved now on the low side. Serum creatinine renzo to 3.7 today. Exam Vital Signs Vital Sign - Last Date Time Temp Pulse Resp B/P Pulse Ox O2 Delivery O2 Flow Rate FiO2 10/30/16 08:55 71 10/30/16 05:14 Supplement Oxygen 10/30/16 04:41 36.4 17 107/62 98 10/29/16 21:02 1.00 Intake and Output 10/29/16 10/29/16 10/30/16 Cumulative From/Thru 15:00 23:00 07:00 10/25/16 10:47 - 10/30/16 06:08 Intake Total 50 ml 250 ml 3299 ml Output Total 250 ml 200 ml 3750 ml Balance -200 ml 50 ml -451 ml Intake Oral 200 ml 2710 ml IV Total 50 ml 50 ml 589 ml Output Urine Total 250 ml 200 ml 3750 ml Urine/Stool Mix 0 ml # Voids 3 # Bowel Movements 0 Exam GENERAL: The patient in no apparent distress, and alert and oriented x3. Lying in bed comfortably. HEENT: Head is normocephalic and atraumatic. Extraocular muscles are intact. Pupils are equal, round, and reactive to light and accommodation. Mouth is well hydrated and without lesions. NECK: Supple, no elevation of JVD, No carotid bruits. No lymphadenopathy or thyromegaly. LUNGS: Decreased breath sound at bases no wheezing no rhonchi nor rales. HEART: Normal S1/S2, Regular rate and rhythm, no murmurs, rubs or gallops. 2+ pules throughout. ABDOMEN: Soft, nontender, and nondistended. Positive bowel sounds. No hepatosplenomegaly was noted. EXTREMITIES: no edema, minimal sacral swelling. SKIN: No ulceration or induration present. Lab and Diagnostics Result Diagram: 10/30/1692310/30/16923 X-Rays, CTs and MRIs . X-RAY CHEST ONE VIEW, PORTABLE IMPRESSION: Reduced inspiratory volume, without identified trauma. Dictated by: Francisco Rivera M.D. on 10/25/2016 X-RAY CHEST ONE VIEW, PORTABLE IMPRESSION: Pleural effusions left greater than right with left basilar atelectasis or infiltrate. Dictated by: Bennie Strauss M.D. on 10/26/2016 US ABDOMEN DOPPLER IMPRESSION: 1. Poorly seen [place] kidneys with a right abdominal transplant kidney. 2. The main portal vein and the hepatic veins are patent. Renal vasculature was not evaluated. Dictated by: Bennie Strauss M.D. on 10/26/2016 US VENOUS LEG DUPLEX BILATERAL IMPRESSION: No DVT in lower extremities bilaterally. Dictated by: Nolan Ulloa M.D. on 10/26/2016 US RENAL TRANSPLANT EVALUATION IMPRESSION: 1. The transplant kidney demonstrates mild cortical thinning. 2. No hydronephrosis. 3. Increased resistive index of transplant kidney. 4. Renal artery and renal vein (transplant kidney) are patent. Dictated by: Nolan Ulloa M.D. on 10/27/2016 CT LUMBAR SPINE WITHOUT CONTRAST IMPRESSION: 1. No fracture. No acute osseous lesion. If there are persistent symptoms or continued clinical suspicion for pathology, then MRI should be considered for further evaluation. 2. Multilevel degenerative disc disease and facet arthropathy which may be causing significant bilateral L3-L4 and L4-L5 as well as the left L5-S1 neural foraminal narrowing. Dictated by: Leigh Ann Lilly MD, PhD on 10/27/2016 12-lead ECG SR,incomplete RBBB Cardiac Echo Impressions Interpretation Summary The ejection fraction is estimated to be 70-75%. The left atrium is severely dilated. The right atrium is mild to moderately dilated. There is moderate mitral annular calcification. The mitral valve mean gradient is 4 mmHg. There is mild to moderate mitral regurgitation. The aortic valve is moderately calcified. There is no hemodynamically significant valvular aortic stenosis. There is mild tricuspid regurgitation. The right ventricular systolic pressure is estimated at 34 mmHg assuming a right atrial pressure of 3 mm Hg. 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 - She is now euvolemic. - I will hold diuretic today. - We will decrease the dosage of labetalol 100 every 8 hours. Status post simultaneous liver and kidney transplant in 2004. -Continue Tacrolimus 1mg AM/HS. -Continue home Prednisone 5 mg daily. - Repeat Prograf level in the morning. Acute on chronic Normocytic Anemia. - Continue aranesp 60 g subcutaneous weekly - Add IV iron infusion today. Suspected diastolic heart failure with underlying disease of paroxysmal atrial fibrillation. HTN - Improved, blood pressure on the low side, will decrease labetalol to 100 every 8 hours. Urinary tract infection -Culture shows group B strep -Pro calcitonin 5.8 -Blood cultures negative to date -Continue Antibiotics per primary team - We will discontinue Aguayo catheter today Claudette Gonzalez MD Oct 30, 2016 11:27
--- NOTE | 2016-10-30 12:57 | DRSVH ---
PROCEDURE: X-RAY CHEST ONE VIEW, PORTABLE ([id number]) INDICATIONS: dyspnea TECHNIQUE: One view of the chest was acquired. COMPARISON: None. FINDINGS: Surgical changes and devices: None. Lungs and pleura: No pleural effusions or pneumothorax. Lungs are edematous and the inspiratory vol ume is reduced. There is at least left basilar atelectasis if not superimposed mild pneumonia. Mediastinum: Mediastinal contours appear normal. Heart size is normal. Bones and chest wall: No suspicious bony lesions. Overlying soft tissues appear unremarkable. IMPRESSION: Reduced inspiratory volume, mild pulmonary edema pattern, left basilar atelectasis and/o r pneumonia. A previously identified peripherally calcified presumed splenic artery aneurysm has bee n previously described and is again seen superimposed on the left upper quadrant. This has been pres ent on prior CT scanning also. No appreciable change. Dictated by: Francisco Rivera M.D. on 10/30/2016 at 12:55 Approved by: Francisco Rivera M.D. on 10/30/2016 at 12:56
[2016-10-30] MEDS ORDERED: Furosemide 10 mg/mL 4 mL Inj IVPUSH ONE ×2 (13:40→18:10)
--- NOTE | 2016-10-30 15:58 | PCM.PNMED ---
Subjective Date of Service Oct 30, 2016 Subjective patient had vomiting with pain yesterday, feels nauseous today but no vomiting . Hb 7 noted and 2 PRBCs ordred. patient slightly more dyspneic and required 2 L O 2 briefly. CXR mild pul edema. BNP > 20,000 ,initial 12,000. lasix 40mg iv once ordered Exam Vital Signs Vital Sign - Last Date Time Temp Pulse Resp B/P Pulse Ox O2 Delivery O2 Flow Rate FiO2 10/30/16 10:00 36.7 74 16 107/58 95 Nasal Cannula 2.00 Intake and Output 10/29/16 10/29/16 10/30/16 Cumulative From/Thru 15:00 23:00 07:00 10/25/16 10:47 - 10/30/16 06:08 Intake Total 50 ml 250 ml 3299 ml Output Total 250 ml 200 ml 3750 ml Balance -200 ml 50 ml -451 ml Intake Oral 200 ml 2710 ml IV Total 50 ml 50 ml 589 ml Output Urine Total 250 ml 200 ml 3750 ml Urine/Stool Mix 0 ml # Voids 3 # Bowel Movements 0 Exam General: No acute distress, well-developed, well-nourished, appropriately interactive HEENT: Normocephalic, atraumatic. External ears without defect. Pupils equal, round, and reactive to light and accommodation. Neck: Supple with full range of motion. No jugular venous distension. No bruits. No lymphadenopathy or thyromegaly. Cardiovascular: Regular rate and rhythm with no murmurs, rubs, or gallops appreciated Pulmonary: Crackles on lower chest bilaterally Abdomen: Bowel tones present. Soft, nontender, nondistended. No hepatosplenomegaly or masses appreciated. Extremities: No clubbing, cyanosis, edema, or lymphadenopathy appreciated. Skin: Normal temperature, turgor, and texture; no rash, ulcers, or subcutaneous nodules appreciated. Neurological: Cranial nerves grossly intact. Normal muscle strength, tone, and bulk. Psychiatric: Normal mood and affect. Alert and oriented to person, place, and time. MSK: Left paraspinal thoracic tenderness. IVs and Medications Medications Reviewed: Medications were reviewed in detail Lab and Diagnostics Result Diagram: 10/30/1692310/30/16923 X-Rays, CTs and MRIs . X-RAY CHEST ONE VIEW, PORTABLE IMPRESSION: Reduced inspiratory volume, without identified trauma. Dictated by: Francisco Rivera M.D. on 10/25/2016 X-RAY CHEST ONE VIEW, PORTABLE IMPRESSION: Pleural effusions left greater than right with left basilar atelectasis or infiltrate. Dictated by: Bennie Strauss M.D. on 10/26/2016 US ABDOMEN DOPPLER IMPRESSION: 1. Poorly seen [place] kidneys with a right abdominal transplant kidney. 2. The main portal vein and the hepatic veins are patent. Renal vasculature was not evaluated. Dictated by: Bennie Strauss M.D. on 10/26/2016 US VENOUS LEG DUPLEX BILATERAL IMPRESSION: No DVT in lower extremities bilaterally. Dictated by: Nolan Ulloa M.D. on 10/26/2016 US RENAL TRANSPLANT EVALUATION IMPRESSION: 1. The transplant kidney demonstrates mild cortical thinning. 2. No hydronephrosis. 3. Increased resistive index of transplant kidney. 4. Renal artery and renal vein (transplant kidney) are patent. Dictated by: Nolan Ulloa M.D. on 10/27/2016 CT LUMBAR SPINE WITHOUT CONTRAST IMPRESSION: 1. No fracture. No acute osseous lesion. If there are persistent symptoms or continued clinical suspicion for pathology, then MRI should be considered for further evaluation. 2. Multilevel degenerative disc disease and facet arthropathy which may be causing significant bilateral L3-L4 and L4-L5 as well as the left L5-S1 neural foraminal narrowing. Dictated by: Leigh Ann Lilly MD, PhD on 10/27/2016 PROCEDURE: X-RAY CHEST ONE VIEW, PORTABLE ([id number]) INDICATIONS: dyspnea TECHNIQUE: One view of the chest was acquired. COMPARISON: None. FINDINGS: Surgical changes and devices: None. Lungs and pleura: No pleural effusions or pneumothorax. Lungs are edematous and the inspiratory volume is reduced. There is at least left basilar atelectasis if not superimposed mild pneumonia. Mediastinum: Mediastinal contours appear normal. Heart size is normal. Bones and chest wall: No suspicious bony lesions. Overlying soft tissues appear unremarkable. IMPRESSION: Reduced inspiratory volume, mild pulmonary edema pattern, left basilar atelectasis and/or pneumonia. 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 This has been present on prior CT scanning also. No appreciable change. Dictated by: Francisco Rivera M.D. on 10/30/2016 at 12:55 Approved by: Francisco Rivera M.D. on 10/30/2016 at 12:56 ADDENDUM: SC posterior aspect of the left seventh rib there is a vertically oriented fracture, only minimally displaced, which cannot be clearly visualized on an old comparison chest plain film from 04/18/16. The more recent chest plain films do not allow excellent visualization through that area a due to reduced inspiration in overlapping mediastinal structures but it was not clearly present 10/25/16, the best visualization on recent plain films. No definite osteolytic or blastic lesion is seen in that area. COMPARISON: [facility], CR, XR CHEST 1VW (PORTABLE), 10/26/2016, 15:07. [facility], CR, XR CHEST 1VW (PORTABLE), 10/25/2016, 11:18. [facility], CR, XR CHEST 2VW, 04/18/2016, 14:34. Dictated by: Francisco Rivera M.D. on 10/30/2016 at 13:24 12-lead ECG SR,incomplete RBBB Cardiac Echo Impressions Interpretation Summary The ejection fraction is estimated to be 70-75%. The left atrium is severely dilated. The right atrium is mild to moderately dilated. There is moderate mitral annular calcification. The mitral valve mean gradient is 4 mmHg. There is mild to moderate mitral regurgitation. The aortic valve is moderately calcified. There is no hemodynamically significant valvular aortic stenosis. There is mild tricuspid regurgitation. The right ventricular systolic pressure is estimated at 34 mmHg assuming a right atrial pressure of 3 mm Hg. Assessment & Plan Ms. Jelena Merritt is a very pleasant 81 year old lady with a past medical history of hepatic and bilateral renal transplants in 2004, hypertension, DM, presented to the [facility] Emergency Department due to back pain after a fall from ground level. # Acute on chronic Normocytic Anemia requiring transfusion . Present on admission. - Hgb on admit 7.7. Prior levels inpatient and outpatient baseline between 9 and 10. -Hb 7.0 today 10/30,2 PRBCs ordered -anemia likely due to CKD # Acute complicated UTI -initial tachycardia at 110,low grade fever,pyuria,procal elevated at 5 -urine culture GBS -started cefepime, switched to Ancef 10/27 .will discontinue tomorrow -uti probably caused the fall # Acute on chronic Kidney injury. Present on admission. Active. - Creatinine on admission 2.99, baseline ~ 2.6. peak 3.5 ,worsened to 3.7 today -US KUB transplant unremarkable - Avoid nephrotoxic insults. -lasix 40mg iv once 10/28,10/29,10/30 -nephrology Dr Moss following # Elevated troponin,improved -due to YONATHAN on CKD , trended down -ASA 1 dose given initially -LA severely dilated on echo,RVSP 34,d-dimer elated ,.LE duplex negative . # Hypertension - held home Valsartan 80 mg HS due to YONATHAN -nephrology switching metoprolol to labetalol . a dose of amlodipine given # Elevated d-dimer -unclear significance -LA severely dilated on echo,RVSP 34,d-dimer elated , .not a candidate for CTA .LE duplex negative . # Acute lumbar Back pain, 2nd to traumatic Fall from Ground level. Present on admission. Active. - CT lumbar negative for fracture -pain control with morphine - Physical therapy eval ordered. - fall due to UTI # GLF -due to UTI -Low vitamin D at 19.9 noted. Started vitamin D 1000 units daily -cxr 10/30 revealed rib fracture . incentive spirometry # suspected chronic diastolic Congestive Heart failure, present on admission. Active. - ECHO as above with norml EF - BNP on admit 12k. - EKG reviewed - Sinus rhythm, PAC's, RBBB. -Initially held home furosemide 20 mg daily. lasix 40mg iv prn per nephrology # Hx of Hepatic and Renal transplant, 2004, present on admission. Active. - Continue Tacrolimus 1mg AM/HS. - Continue home Prednisone 5 mg daily. # Hyperlipemia - Continue home Pravastatin 40 mg daily. # Depression - Continue home Sertraline 20 mg HS. Acetaminophen for mild pain when necessary. Bowel regimen Senna and MiraLAX scheduled and PRN. Zofran when necessary for nausea and vomiting. SubQ heparin for now. SCDs in place. inpatient full code Disposition: Possible discharge1-2 days to alf facility( [facility]) once kidney function improve VTE Mechanical Devices: Intermittant Pneumatic CD Resuscitation Status: CPR: Attempt Resuscitation Norris Rodriguez MD Oct 30, 2016 15:58 Norris Rodriguez MD Oct 30, 2016 15:58
[2016-10-30] MEDS: Ondansetron 2 mg/mL 2 mL Inj IVPUSH PRN (18:34)
[2016-10-31] VITALS (8 sets, daily range): BP systolic 103–131; BP diastolic 56–71; PULSE 78–87; RESP 16–18; O2SAT 87–99
[2016-10-31] MEDS: Heparin 5,000 Unit/mL Inj SUBQ SCH ×3 (00:53→17:18)
[2016-10-31] MEDS: predniSONE 5 mg Tablet PO SCH (08:37)
[2016-10-31] MEDS: CeFAZolin Inj 1 GM in IV Premix 1 EACH IV SCH (08:37)
[2016-10-31] MEDS: Lidocaine Topical 5% Patch TOPICAL SCH (08:39)
[2016-10-31] MEDS: Nystatin 100,000 Unit/Gm 15 Gm Powder TOPICAL SCH ×2 (08:40→20:29)
[2016-10-31 09:41] LABS: BASOPHILS % (AUTO) 0.1 % (0-3); EOSINOPHILS % (AUTO) 0.3 % (0-5); MONOCYTES % (AUTO) 8.5 % (4-12); Mean Corpuscular Hemoglobin 29.8 pg (27.0-35.0); NEUTROPHILS % (AUTO) 82.2 % (40-74); Platelet Count 170 bil/L (150-400)
[2016-10-31 10:06] LABS: Magnesium 1.7 mg/dL (1.6-2.6); Phosphorus 4.9 mg/dL (2.5-4.9)
--- NOTE | 2016-10-31 13:06 | PCM.PNNEPH ---
Subjective Date of Service Oct 31, 2016 Subjective Pt stated that she is feeling better but nurse reported that she has become weaker and is unable to get to up. O2 Sat 99% with NC. s/p 2 units PRBCs. Serum creatinine continue to rise 3.9 after IV lasix. Exam Vital Signs Vital Sign - Last Date Time Temp Pulse Resp B/P Pulse Ox O2 Delivery O2 Flow Rate FiO2 10/31/16 09:06 87 10/31/16 06:36 95 Nasal Cannula 2.00 10/31/16 06:34 36.5 16 118/56 Intake and Output 10/30/16 10/30/16 10/31/16 Cumulative From/Thru 15:00 23:00 07:00 10/25/16 10:47 - 10/31/16 06:34 Intake Total 400 ml 1521 ml 5220 ml Output Total 300 ml 350 ml 4400 ml Balance 400 ml 1221 ml -350 ml 820 ml Intake Oral 500 ml 3210 ml IV Total 100 ml 734 ml 1423 ml Packed Cells 300 ml 287 ml 587 ml Output Urine Total 300 ml 350 ml 4400 ml Urine/Stool Mix 0 ml # Voids 1 4 # Bowel Movements 1 1 Exam GENERAL: The patient in no apparent distress, and alert and oriented x3. Lying in bed comfortably. HEENT: Head is normocephalic and atraumatic. Extraocular muscles are intact. Pupils are equal, round, and reactive to light and accommodation. Mouth is well hydrated and without lesions. NECK: Supple, no elevation of JVD, No carotid bruits. No lymphadenopathy or thyromegaly. LUNGS: Decreased breath sound at bases no wheezing no rhonchi nor rales. HEART: Normal S1/S2, Regular rate and rhythm, no murmurs, rubs or gallops. 2+ pules throughout. ABDOMEN: Soft, nontender, and nondistended. Positive bowel sounds. No hepatosplenomegaly was noted. EXTREMITIES: no edema, minimal sacral swelling. SKIN: No ulceration or induration present. Lab and Diagnostics Result Diagram: 10/31/1693210/31/16932 X-Rays, CTs and MRIs . X-RAY CHEST ONE VIEW, PORTABLE IMPRESSION: Reduced inspiratory volume, without identified trauma. Dictated by: Francisco Rivera M.D. on 10/25/2016 X-RAY CHEST ONE VIEW, PORTABLE IMPRESSION: Pleural effusions left greater than right with left basilar atelectasis or infiltrate. Dictated by: Bennie Strauss M.D. on 10/26/2016 US ABDOMEN DOPPLER IMPRESSION: 1. Poorly seen [place] kidneys with a right abdominal transplant kidney. 2. The main portal vein and the hepatic veins are patent. Renal vasculature was not evaluated. Dictated by: Bennie Strauss M.D. on 10/26/2016 US VENOUS LEG DUPLEX BILATERAL IMPRESSION: No DVT in lower extremities bilaterally. Dictated by: Nolan Ulloa M.D. on 10/26/2016 US RENAL TRANSPLANT EVALUATION IMPRESSION: 1. The transplant kidney demonstrates mild cortical thinning. 2. No hydronephrosis. 3. Increased resistive index of transplant kidney. 4. Renal artery and renal vein (transplant kidney) are patent. Dictated by: Nolan Ulloa M.D. on 10/27/2016 CT LUMBAR SPINE WITHOUT CONTRAST IMPRESSION: 1. No fracture. No acute osseous lesion. If there are persistent symptoms or continued clinical suspicion for pathology, then MRI should be considered for further evaluation. 2. Multilevel degenerative disc disease and facet arthropathy which may be causing significant bilateral L3-L4 and L4-L5 as well as the left L5-S1 neural foraminal narrowing. Dictated by: Leigh Ann Lilly MD, PhD on 10/27/2016 PROCEDURE: X-RAY CHEST ONE VIEW, PORTABLE ([id number]) INDICATIONS: dyspnea TECHNIQUE: One view of the chest was acquired. COMPARISON: None. FINDINGS: Surgical changes and devices: None. Lungs and pleura: No pleural effusions or pneumothorax. Lungs are edematous and the inspiratory volume is reduced. There is at least left basilar atelectasis if not superimposed mild pneumonia. Mediastinum: Mediastinal contours appear normal. Heart size is normal. Bones and chest wall: No suspicious bony lesions. Overlying soft tissues appear unremarkable. IMPRESSION: Reduced inspiratory volume, mild pulmonary edema pattern, left basilar atelectasis and/or pneumonia. 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 This has been present on prior CT scanning also. No appreciable change. Dictated by: Francisco Rivera M.D. on 10/30/2016 at 12:55 Approved by: Francisco Rivera M.D. on 10/30/2016 at 12:56 ADDENDUM: SC posterior aspect of the left seventh rib there is a vertically oriented fracture, only minimally displaced, which cannot be clearly visualized on an old comparison chest plain film from 04/18/16. The more recent chest plain films do not allow excellent visualization through that area a due to reduced inspiration in overlapping mediastinal structures but it was not clearly present 10/25/16, the best visualization on recent plain films. No definite osteolytic or blastic lesion is seen in that area. COMPARISON: [facility], CR, XR CHEST 1VW (PORTABLE), 10/26/2016, 15:07. [facility], CR, XR CHEST 1VW (PORTABLE), 10/25/2016, 11:18. [facility], CR, XR CHEST 2VW, 04/18/2016, 14:34. Dictated by: Francisco Rivera M.D. on 10/30/2016 at 13:24 12-lead ECG SR,incomplete RBBB Cardiac Echo Impressions Interpretation Summary The ejection fraction is estimated to be 70-75%. The left atrium is severely dilated. The right atrium is mild to moderately dilated. There is moderate mitral annular calcification. The mitral valve mean gradient is 4 mmHg. There is mild to moderate mitral regurgitation. The aortic valve is moderately calcified. There is no hemodynamically significant valvular aortic stenosis. There is mild tricuspid regurgitation. The right ventricular systolic pressure is estimated at 34 mmHg assuming a right atrial pressure of 3 mm Hg. Plan Impression 1. 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 - The etiology of YONATHAN is likely due to ATN and overdiuresis. - Worsening serum creatinine after multiple dosages of lasix. LE edema has improved. - We will continue labetalol 100 PO every 8 hours. - hold IV lasix today. 2. Status post simultaneous liver and kidney transplant in 2004. -Continue Tacrolimus 1mg AM/HS and Prednisone 5 mg daily. - Pending Prograf level. 3. Acute on chronic Normocytic Anemia. - Continue aranesp 60 g subcutaneous weekly - s/p IV iron infusion. - s/p 2 units of PRBCs. 4. Desaturation r/o pulm edema, atelectasis. 5. Suspected diastolic heart failure with underlying disease of paroxysmal atrial fibrillation. 6. s/p fall. 7. HTN - labile - Improved with oral labetalol. - Losartan on hold due to YONATHAN and hyperkalemia. - continue labetalol to 100 every 8 hours. 8. Gr B strep Urinary tract infection -Continue Antibiotics per primary team Claudette Gonzalez MD Oct 31, 2016 13:06
--- NOTE | 2016-10-31 16:41 | PCM.PNMED ---
Subjective Date of Service Oct 31, 2016 Subjective Patient continues to have dyspnea requiring oxygen 2L but no worsening from yesterday. Kidney function continues to worsen. Received 2 units of PRBc 10/30 , posttransfusion hemoglobin responded appropriately. new Leukocytosis noted. Exam Vital Signs Vital Sign - Last Date Time Temp Pulse Resp B/P Pulse Ox O2 Delivery O2 Flow Rate FiO2 10/31/16 14:00 Supplement Oxygen 10/31/16 12:00 37.1 85 18 131/66 99 2.00 Intake and Output 10/30/16 10/30/16 10/31/16 Cumulative From/Thru 15:00 23:00 07:00 10/25/16 10:47 - 10/31/16 06:34 Intake Total 400 ml 1521 ml 5220 ml Output Total 300 ml 350 ml 4400 ml Balance 400 ml 1221 ml -350 ml 820 ml Intake Oral 500 ml 3210 ml IV Total 100 ml 734 ml 1423 ml Packed Cells 300 ml 287 ml 587 ml Output Urine Total 300 ml 350 ml 4400 ml Urine/Stool Mix 0 ml # Voids 1 4 # Bowel Movements 1 1 Exam General: No acute distress, well-developed, well-nourished, appropriately interactive HEENT: Normocephalic, atraumatic. External ears without defect. Pupils equal, round, and reactive to light and accommodation. Neck: Supple with full range of motion. No jugular venous distension. No bruits. No lymphadenopathy or thyromegaly. Cardiovascular: Regular rate and rhythm with no murmurs, rubs, or gallops appreciated Pulmonary: Crackles on lower chest bilaterally Abdomen: Bowel tones present. Soft, nontender, nondistended. No hepatosplenomegaly or masses appreciated. Extremities: No clubbing, cyanosis, edema, or lymphadenopathy appreciated. Skin: Normal temperature, turgor, and texture; no rash, ulcers, or subcutaneous nodules appreciated. Neurological: Cranial nerves grossly intact. Normal muscle strength, tone, and bulk. Psychiatric: Normal mood and affect. Alert and oriented to person, place, and time. MSK: Left paraspinal thoracic tenderness. IVs and Medications Medications Reviewed: Medications were reviewed in detail Lab and Diagnostics Result Diagram: 10/31/16 0933 10/31/16 0933 X-Rays, CTs and MRIs . X-RAY CHEST ONE VIEW, PORTABLE IMPRESSION: Reduced inspiratory volume, without identified trauma. Dictated by: Francisco Rivera M.D. on 10/25/2016 X-RAY CHEST ONE VIEW, PORTABLE IMPRESSION: Pleural effusions left greater than right with left basilar atelectasis or infiltrate. Dictated by: Bennie Strauss M.D. on 10/26/2016 US ABDOMEN DOPPLER IMPRESSION: 1. Poorly seen [place] kidneys with a right abdominal transplant kidney. 2. The main portal vein and the hepatic veins are patent. Renal vasculature was not evaluated. Dictated by: Bennie Strauss M.D. on 10/26/2016 US VENOUS LEG DUPLEX BILATERAL IMPRESSION: No DVT in lower extremities bilaterally. Dictated by: Nolan Ulloa M.D. on 10/26/2016 US RENAL TRANSPLANT EVALUATION IMPRESSION: 1. The transplant kidney demonstrates mild cortical thinning. 2. No hydronephrosis. 3. Increased resistive index of transplant kidney. 4. Renal artery and renal vein (transplant kidney) are patent. Dictated by: Nolan Ulloa M.D. on 10/27/2016 CT LUMBAR SPINE WITHOUT CONTRAST IMPRESSION: 1. No fracture. No acute osseous lesion. If there are persistent symptoms or continued clinical suspicion for pathology, then MRI should be considered for further evaluation. 2. Multilevel degenerative disc disease and facet arthropathy which may be causing significant bilateral L3-L4 and L4-L5 as well as the left L5-S1 neural foraminal narrowing. Dictated by: Leigh Ann Lilly MD, PhD on 10/27/2016 PROCEDURE: X-RAY CHEST ONE VIEW, PORTABLE ([id number]) INDICATIONS: dyspnea TECHNIQUE: One view of the chest was acquired. COMPARISON: None. FINDINGS: Surgical changes and devices: None. Lungs and pleura: No pleural effusions or pneumothorax. Lungs are edematous and the inspiratory volume is reduced. There is at least left basilar atelectasis if not superimposed mild pneumonia. Mediastinum: Mediastinal contours appear normal. Heart size is normal. Bones and chest wall: No suspicious bony lesions. Overlying soft tissues appear unremarkable. IMPRESSION: Reduced inspiratory volume, mild pulmonary edema pattern, left basilar atelectasis and/or pneumonia. 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 This has been present on prior CT scanning also. No appreciable change. Dictated by: Francisco Rivera M.D. on 10/30/2016 at 12:55 Approved by: Francisco Rivera M.D. on 10/30/2016 at 12:56 ADDENDUM: SC posterior aspect of the left seventh rib there is a vertically oriented fracture, only minimally displaced, which cannot be clearly visualized on an old comparison chest plain film from 04/18/16. The more recent chest plain films do not allow excellent visualization through that area a due to reduced inspiration in overlapping mediastinal structures but it was not clearly present 10/25/16, the best visualization on recent plain films. No definite osteolytic or blastic lesion is seen in that area. COMPARISON: [facility], CR, XR CHEST 1VW (PORTABLE), 10/26/2016, 15:07. [facility], CR, XR CHEST 1VW (PORTABLE), 10/25/2016, 11:18. [facility], CR, XR CHEST 2VW, 04/18/2016, 14:34. Dictated by: Francisco Rivera M.D. on 10/30/2016 at 13:24 12-lead ECG SR,incomplete RBBB Cardiac Echo Impressions Interpretation Summary The ejection fraction is estimated to be 70-75%. The left atrium is severely dilated. The right atrium is mild to moderately dilated. There is moderate mitral annular calcification. The mitral valve mean gradient is 4 mmHg. There is mild to moderate mitral regurgitation. The aortic valve is moderately calcified. There is no hemodynamically significant valvular aortic stenosis. There is mild tricuspid regurgitation. The right ventricular systolic pressure is estimated at 34 mmHg assuming a right atrial pressure of 3 mm Hg. Assessment & Plan Ms. Jelena Merritt is a very pleasant 81 year old lady with a past medical history of hepatic and bilateral renal transplants in 2004, hypertension, DM, presented to the [facility] Emergency Department due to back pain after a fall from ground level. # Acute on chronic Kidney injury. Present on admission. Active. - Creatinine on admission 2.99, baseline ~ 2.6. ,worsened to 3.95 today -US KUB transplant unremarkable - Avoid nephrotoxic insults. -lasix 40mg iv given on 10/28,10/29,10/30 . It seems Yonathan is combination of ATN from infection/dehydration, labile BP and overdiuresis -held lasix today -nephrology Dr Moss following -nephrology to discuss with family re [employer] # Acute on chronic Normocytic Anemia requiring transfusion . Present on admission. - Hgb on admit 7.7. Prior levels inpatient and outpatient baseline between 9 and 10. -Hb 7.0 10/30,2 PRBCs transfused. -anemia likely due to CKD # suspected acute on chronic diastolic Congestive Heart failure, present on admission. Active. - ECHO as above with norml EF - BNP on admit 12k. > 20,000 on 10/30 - EKG reviewed - Sinus rhythm, PAC's, RBBB. -Initially held home furosemide 20 mg daily. lasix 40mg iv prn x3 per nephrology .now on hold due to worsening Yonathan # acute hypoxic respiratory failre due to fluid overload and rib fracture -fluid overload due to YONATHAN on CKD ,acute on chronic diastolic CHF and possible atelectasis rib fracure -Patient requiring 2L of oxygen and desaturates to mid 80s on room air -mx of contributing factors as above # Acute complicated UTI -initial tachycardia at 110,low grade fever,pyuria,procal elevated at 5 -urine culture GBS -started cefepime, switched to Ancef 10/27 .will discontinue tomorrow -uti probably caused the fall # Elevated troponin,improved -due to YONATHAN on CKD , trended down -ASA 1 dose given initially -LA severely dilated on echo,RVSP 34,d-dimer elated ,.LE duplex negative . # Hypertension - held home Valsartan 80 mg HS due to YONATHAN -nephrology switching metoprolol to labetalol . a dose of amlodipine 5mg given on 10/29 # Elevated d-dimer -unclear significance -LA severely dilated on echo,RVSP 34,d-dimer elated , .not a candidate for CTA .LE duplex negative . # Acute lumbar Back pain, 2nd to traumatic Fall from Ground level. Present on admission. Active. - CT lumbar negative for fracture -pain control with morphine - Physical therapy eval ordered. - fall due to UTI # GLF -due to UTI -Low vitamin D at 19.9 noted. Started vitamin D 1000 units daily -cxr 10/30 revealed rib fracture that wan not reported on prior XRs . incentive spirometry given # Hx of Hepatic and Renal transplant, 2004, present on admission. Active. - Continue Tacrolimus 1mg AM/HS. - Continue home Prednisone 5 mg daily. # Hyperlipemia - Continue home Pravastatin 40 mg daily. # Depression - Continue home Sertraline 20 mg HS. Acetaminophen for mild pain when necessary. Bowel regimen Senna and MiraLAX scheduled and PRN. Zofran when necessary for nausea and vomiting. SubQ heparin for now. SCDs in place. inpatient full code Disposition: pending clinical course.patient accepted at senior care facility( ) .dc once kidney function improve VTE Mechanical Devices: Intermittant Pneumatic CD Resuscitation Status: CPR: Attempt Resuscitation Norris Rodriguez MD Oct 31, 2016 16:41
[2016-10-31] MEDS ORDERED: Cefepime 2,000 mg/100 mL D5W Minibag Plus IV ONE ×2 (18:05)
--- NOTE | 2016-10-31 18:33 | DRSVH ---
PROCEDURE: X-RAY CHEST ONE VIEW, PORTABLE ([id number]) INDICATIONS: dyspnea TECHNIQUE: One view of the chest was acquired. COMPARISON: [facility], CR, XR CHEST 1VW (PORTABLE), 10/30/2016, 11:27. FINDINGS: Surgical changes and devices: None. Lungs and pleura: Lung volumes are low. There are bibasilar pulmonary radiopacities and pleural effus ions similar in extent to yesterday's study. No pneumothorax. Mediastinum: Mediastinal contours appear normal. Heart size is enlarged, as before. Bones and chest wall: No suspicious bony lesions. Overlying soft tissues appear unremarkable. IMPRESSION: Stable chest. Dictated by: Eda Hector M.D. on 10/31/2016 at 18:30 Approved by: Eda Hector M.D. on 10/31/2016 at 18:32
[2016-11-01] VITALS (8 sets, daily range): BP systolic 106–112; BP diastolic 52–57; PULSE 74–88; RESP 16–20; O2SAT 94–97
[2016-11-01] MEDS: Heparin 5,000 Unit/mL Inj SUBQ SCH ×3 (00:33→15:59)
[2016-11-01 06:45] LABS: BASOPHILS % (AUTO) 0.2 % (0-3); Mean Corpuscular Hemoglobin 30.7 pg (27.0-35.0); Mean Corpuscular Volume 93.1 fL (81-100); NEUTROPHILS % (AUTO) 74.4 % (40-74); Platelet Count 176 bil/L (150-400)
[2016-11-01 07:12] LABS: Magnesium 1.8 mg/dL (1.6-2.6); Phosphorus 4.9 mg/dL (2.5-4.9)
[2016-11-01] MEDS ORDERED: Cefepime Inj 1,000 MG in Dextrose 5% Minibag Plus 50 ML IV SCH (08:30)
[2016-11-01] MEDS: Lidocaine Topical 5% Patch TOPICAL SCH (08:30)
[2016-11-01] MEDS: predniSONE 5 mg Tablet PO SCH (09:51)
[2016-11-01] MEDS: Nystatin 100,000 Unit/Gm 15 Gm Powder TOPICAL SCH ×2 (09:52→20:22)
--- NOTE | 2016-11-01 10:32 | PCM.PNNEPH ---
Subjective Date of Service Nov 01, 2016 Subjective Family is at the bedside. They reported that patient appears to be improved. She has less LE swelling. Pain is controlled. Exam Vital Signs Vital Sign - Last Date Time Temp Pulse Resp B/P Pulse Ox O2 Delivery O2 Flow Rate FiO2 11/01/16 09:21 81 11/01/16 05:31 36.8 16 106/57 95 Nasal Cannula 2.00 Intake and Output 10/31/16 10/31/16 11/01/16 Cumulative From/Thru 15:00 23:00 07:00 10/25/16 10:47 - 11/01/16 05:33 Intake Total 175 ml 100 ml 5495 ml Output Total 200 ml 4600 ml Balance -25 ml 100 ml 895 ml Intake Oral 110 ml 3320 ml IV Total 65 ml 100 ml 1588 ml Packed Cells 587 ml Output Urine Total 200 ml 4600 ml Urine/Stool Mix 0 ml # Voids 4 # Bowel Movements 1 2 Exam GENERAL: The patient in no apparent distress, and alert and oriented x3. Lying in bed comfortably. HEENT: Head is normocephalic and atraumatic. Extraocular muscles are intact. Pupils are equal, round, and reactive to light and accommodation. Mouth is well hydrated and without lesions. NECK: Supple, no elevation of JVD, No carotid bruits. No lymphadenopathy or thyromegaly. LUNGS: No wheezing no rhonchi, minimal rales at bases. HEART: Normal S1/S2, Regular rate and rhythm, no murmurs, rubs or gallops. ABDOMEN: Soft, nontender, and nondistended. Positive bowel sounds. No hepatosplenomegaly was noted. EXTREMITIES: Trace edema. Lab and Diagnostics Result Diagram: 11/01/1662411/01/16624 X-Rays, CTs and MRIs . X-RAY CHEST ONE VIEW, PORTABLE IMPRESSION: Reduced inspiratory volume, without identified trauma. Dictated by: Francisco Rivera M.D. on 10/25/2016 X-RAY CHEST ONE VIEW, PORTABLE IMPRESSION: Pleural effusions left greater than right with left basilar atelectasis or infiltrate. Dictated by: Bennie Strauss M.D. on 10/26/2016 US ABDOMEN DOPPLER IMPRESSION: 1. Poorly seen [place] kidneys with a right abdominal transplant kidney. 2. The main portal vein and the hepatic veins are patent. Renal vasculature was not evaluated. Dictated by: Bennie Strauss M.D. on 10/26/2016 VENOUS LEG DUPLEX BILATERAL IMPRESSION: No DVT in lower extremities bilaterally. Dictated by: Nolan Ulloa M.D. on 10/26/2016 RENAL TRANSPLANT EVALUATION IMPRESSION: 1. The transplant kidney demonstrates mild cortical thinning. 2. No hydronephrosis. 3. Increased resistive index of transplant kidney. 4. Renal artery and renal vein (transplant kidney) are patent. Dictated by: Nolan Ulloa M.D. on 10/27/2016 CT LUMBAR SPINE WITHOUT CONTRAST IMPRESSION: 1. No fracture. No acute osseous lesion. If there are persistent symptoms or continued clinical suspicion for pathology, then MRI should be considered for further evaluation. 2. Multilevel degenerative disc disease and facet arthropathy which may be causing significant bilateral L3-L4 and L4-L5 as well as the left L5-S1 neural foraminal narrowing. Dictated by: Leigh Ann Lilly MD, PhD on 10/27/2016 PROCEDURE: X-RAY CHEST ONE VIEW, PORTABLE ([id number]) INDICATIONS: dyspnea TECHNIQUE: One view of the chest was acquired. COMPARISON: None. FINDINGS: Surgical changes and devices: None. Lungs and pleura: No pleural effusions or pneumothorax. Lungs are edematous and the inspiratory volume is reduced. There is at least left basilar atelectasis if not superimposed mild pneumonia. Mediastinum: Mediastinal contours appear normal. Heart size is normal. Bones and chest wall: No suspicious bony lesions. Overlying soft tissues appear unremarkable. IMPRESSION: Reduced inspiratory volume, mild pulmonary edema pattern, left basilar atelectasis and/or pneumonia. 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 This has been present on prior CT scanning also. No appreciable change. Dictated by: Francisco Rivera M.D. on 10/30/2016 at 12:55 Approved by: Francisco Rivera M.D. on 10/30/2016 at 12:56 ADDENDUM: SC posterior aspect of the left seventh rib there is a vertically oriented fracture, only minimally displaced, which cannot be clearly visualized on an old comparison chest plain film from 04/18/16. The more recent chest plain films do not allow excellent visualization through that area a due to reduced inspiration in overlapping mediastinal structures but it was not clearly present 10/25/16, the best visualization on recent plain films. No definite osteolytic or blastic lesion is seen in that area. COMPARISON: [facility], CR, XR CHEST 1VW (PORTABLE), 10/26/2016, 15:07. [facility], CR, XR CHEST 1VW (PORTABLE), 10/25/2016, 11:18. [facility], CR, XR CHEST 2VW, 04/18/2016, 14:34. Dictated by: Francisco Rivera M.D. on 10/30/2016 at 13:24 12-lead ECG SR,incomplete RBBB Cardiac Echo Impressions Interpretation Summary The ejection fraction is estimated to be 70-75%. The left atrium is severely dilated. The right atrium is mild to moderately dilated. There is moderate mitral annular calcification. The mitral valve mean gradient is 4 mmHg. There is mild to moderate mitral regurgitation. The aortic valve is moderately calcified. There is no hemodynamically significant valvular aortic stenosis. There is mild tricuspid regurgitation. The right ventricular systolic pressure is estimated at 34 mmHg assuming a right atrial pressure of 3 mm Hg. Plan Impression 1. 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 - The etiology of YONATHAN is likely due to ATN and overdiuresis. - Worsening serum creatinine after multiple dosages of lasix. LE edema has improved. - We will continue labetalol 100 PO every 8 hours. - Hold IV lasix today. - Add sodium bicarb 650 mg TID. - No renal replacement therapy indicated at this moment. - May require HD in the near future. - Discuss in length with her family. Question were answered. 2. Status post simultaneous liver and kidney transplant in 2004. - Continue Tacrolimus 1mg AM/HS and Prednisone 5 mg daily. - Pending Prograf level. 3. Acute on chronic Normocytic Anemia. - Continue aranesp 60 g subcutaneous weekly - s/p IV iron infusion. - s/p 2 units of PRBCs. 4. Desaturation r/o pulm edema, atelectasis. 5. Suspected diastolic heart failure with underlying disease of paroxysmal atrial fibrillation. 6. s/p fall. 7. HTN - labile - Improved with oral labetalol. - Losartan on hold due to YONATHAN and hyperkalemia. - continue labetalol to 100 every 8 hours. 8. Gr B strep Urinary tract infection -Continue Antibiotics per primary team Claudette Gonzalez MD Nov 01, 2016 10:32
[2016-11-01] MEDS ORDERED: Albuterol-Ipratropium 3 mL Inhalation Solution NEB PRN (12:40)
--- NOTE | 2016-11-01 18:01 | PCM.PNMED ---
Subjective Date of Service Nov 01, 2016 Subjective Generalized weakness unchanged. kidney function continues to worsen Exam Vital Signs Vital Sign - Last Date Time Temp Pulse Resp B/P Pulse Ox O2 Delivery O2 Flow Rate FiO2 11/01/16 17:04 88 20 97 Nasal Cannula 2.00 11/01/16 10:10 36.7 112/57 Intake and Output 10/31/16 10/31/16 11/01/16 Cumulative From/Thru 15:00 23:00 07:00 10/25/16 10:47 - 11/01/16 05:33 Intake Total 175 ml 100 ml 5495 ml Output Total 200 ml 4600 ml Balance -25 ml 100 ml 895 ml Intake Oral 110 ml 3320 ml IV Total 65 ml 100 ml 1588 ml Packed Cells 587 ml Output Urine Total 200 ml 4600 ml Urine/Stool Mix 0 ml # Voids 4 # Bowel Movements 1 2 Exam General: No acute distress, well-developed, well-nourished, appropriately interactive HEENT: Normocephalic, atraumatic. External ears without defect. Pupils equal, round, and reactive to light and accommodation. Neck: Supple with full range of motion. No jugular venous distension. No bruits. No lymphadenopathy or thyromegaly. Cardiovascular: Regular rate and rhythm with no murmurs, rubs, or gallops appreciated Pulmonary: Crackles on lower chest bilaterally Abdomen: Bowel tones present. Soft, nontender, nondistended. No hepatosplenomegaly or masses appreciated. Extremities: No clubbing, cyanosis, edema, or lymphadenopathy appreciated. Skin: Normal temperature, turgor, and texture; no rash, ulcers, or subcutaneous nodules appreciated. Neurological: Cranial nerves grossly intact. Normal muscle strength, tone, and bulk. Psychiatric: Normal mood and affect. Alert and oriented to person, place, and time. MSK: Left paraspinal thoracic tenderness. IVs and Medications Medications Reviewed: Medications were reviewed in detail Lab and Diagnostics Result Diagram: 11/01/1662411/01/16624 X-Rays, CTs and MRIs . X-RAY CHEST ONE VIEW, PORTABLE IMPRESSION: Reduced inspiratory volume, without identified trauma. Dictated by: Francisco Rivera M.D. on 10/25/2016 X-RAY CHEST ONE VIEW, PORTABLE IMPRESSION: Pleural effusions left greater than right with left basilar atelectasis or infiltrate. Dictated by: Bennie Strauss M.D. on 10/26/2016 US ABDOMEN DOPPLER IMPRESSION: 1. Poorly seen [place] kidneys with a right abdominal transplant kidney. 2. The main portal vein and the hepatic veins are patent. Renal vasculature was not evaluated. Dictated by: Bennie Strauss M.D. on 10/26/2016 US VENOUS LEG DUPLEX BILATERAL IMPRESSION: No DVT in lower extremities bilaterally. Dictated by: Nolan Ulloa M.D. on 10/26/2016 US RENAL TRANSPLANT EVALUATION IMPRESSION: 1. The transplant kidney demonstrates mild cortical thinning. 2. No hydronephrosis. 3. Increased resistive index of transplant kidney. 4. Renal artery and renal vein (transplant kidney) are patent. Dictated by: Nolan Ulloa M.D. on 10/27/2016 CT LUMBAR SPINE WITHOUT CONTRAST IMPRESSION: 1. No fracture. No acute osseous lesion. If there are persistent symptoms or continued clinical suspicion for pathology, then MRI should be considered for further evaluation. 2. Multilevel degenerative disc disease and facet arthropathy which may be causing significant bilateral L3-L4 and L4-L5 as well as the left L5-S1 neural foraminal narrowing. Dictated by: Leihg Ann Lilly MD, PhD on 10/27/2016 PROCEDURE: X-RAY CHEST ONE VIEW, PORTABLE ([id number]) INDICATIONS: dyspnea TECHNIQUE: One view of the chest was acquired. COMPARISON: None. FINDINGS: Surgical changes and devices: None. Lungs and pleura: No pleural effusions or pneumothorax. Lungs are edematous and the inspiratory volume is reduced. There is at least left basilar atelectasis if not superimposed mild pneumonia. Mediastinum: Mediastinal contours appear normal. Heart size is normal. Bones and chest wall: No suspicious bony lesions. Overlying soft tissues appear unremarkable. IMPRESSION: Reduced inspiratory volume, mild pulmonary edema pattern, left basilar atelectasis and/or pneumonia. 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 This has been present on prior CT scanning also. No appreciable change. Dictated by: Francisco Rivera M.D. on 10/30/2016 at 12:55 Approved by: Francisco Rivera M.D. on 10/30/2016 at 12:56 ADDENDUM: SC posterior aspect of the left seventh rib there is a vertically oriented fracture, only minimally displaced, which cannot be clearly visualized on an old comparison chest plain film from 04/18/16. The more recent chest plain films do not allow excellent visualization through that area a due to reduced inspiration in overlapping mediastinal structures but it was not clearly present 10/25/16, the best visualization on recent plain films. No definite osteolytic or blastic lesion is seen in that area. COMPARISON: [facility], CR, XR CHEST 1VW (PORTABLE), 10/26/2016, 15:07. [facility], CR, XR CHEST 1VW (PORTABLE), 10/25/2016, 11:18. [facility], CR, XR CHEST 2VW, 04/18/2016, 14:34. Dictated by: Francisco Rivera M.D. on 10/30/2016 at 13:24 12-lead ECG SR,incomplete RBBB Cardiac Echo Impressions Interpretation Summary The ejection fraction is estimated to be 70-75%. The left atrium is severely dilated. The right atrium is mild to moderately dilated. There is moderate mitral annular calcification. The mitral valve mean gradient is 4 mmHg. There is mild to moderate mitral regurgitation. The aortic valve is moderately calcified. There is no hemodynamically significant valvular aortic stenosis. There is mild tricuspid regurgitation. The right ventricular systolic pressure is estimated at 34 mmHg assuming a right atrial pressure of 3 mm Hg. Assessment & Plan Ms. Jelena Merritt is a very pleasant 81 year old lady with a past medical history of hepatic and bilateral renal transplants in 2004, hypertension, DM, presented to the [facility] Emergency Department due to back pain after a fall from ground level. # Acute on chronic Kidney injury. Present on admission. Active. - Creatinine on admission 2.99, baseline ~ 2.6. ,worsened to 4.33 today -US KUB transplant unremarkable - Avoid nephrotoxic insults. -lasix 40mg iv given on 10/28,10/29,10/30 . 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 Present on admission. - Hgb on admit 7.7. Prior levels inpatient and outpatient baseline between 9 and 10. -Hb 7.0 10/30,2 PRBCs transfused. -anemia likely due to CKD # suspected acute on chronic diastolic Congestive Heart failure, present on admission. Active. - ECHO as above with norml EF - BNP on admit 12k. > 20,000 on 10/30 - EKG reviewed - Sinus rhythm, PAC's, RBBB. -Initially held home furosemide 20 mg daily. lasix 40mg iv prn x3 per nephrology .now on hold due to worsening Yonathan # acute hypoxic respiratory failre due to fluid overload and rib fracture -fluid overload due to YONATHAN on CKD ,acute on chronic diastolic CHF and possible atelectasis rib fracure -Patient requiring 2L of oxygen and desaturates to mid 80s on room air -mx of contributing factors as above # Acute complicated UTI -initial tachycardia at 110,low grade fever,pyuria,procal elevated at 5 -urine culture GBS -started cefepime, switched to Ancef 10/27 . Broaden again to cefepime due to new leukocytosis 10/31 -uti probably caused the fall # Elevated troponin,improved -due to YNOATHAN on CKD , trended down -ASA 1 dose given initially -LA severely dilated on echo,RVSP 34,d-dimer elated ,.LE duplex negative . # Hypertension - held home Valsartan 80 mg HS due to YONATHAN -nephrology switching metoprolol to labetalol . a dose of amlodipine 5mg given on 10/29 # Elevated d-dimer -unclear significance -LA severely dilated on echo,RVSP 34,d-dimer elated , .not a candidate for CTA .LE duplex negative . # Acute lumbar Back pain, 2nd to traumatic Fall from Ground level. Present on admission. Active. - CT lumbar negative for fracture -pain control with morphine - Physical therapy eval ordered. - fall due to UTI # GLF -due to UTI -Low vitamin D at 19.9 noted. Started vitamin D 1000 units daily -cxr 10/30 revealed rib fracture that wan not reported on prior XRs . incentive spirometry given # Hx of Hepatic and Renal transplant, 2004, present on admission. Active. - Continue Tacrolimus 1mg AM/HS. - Continue home Prednisone 5 mg daily. # Hyperlipemia - Continue home Pravastatin 40 mg daily. # Depression - Continue home Sertraline 20 mg HS. Acetaminophen for mild pain when necessary. Bowel regimen Senna and MiraLAX scheduled and PRN. Zofran when necessary for nausea and vomiting. SubQ heparin for now. SCDs in place. inpatient full code Disposition: pending clinical course.patient accepted at [facility] .dc once kidney function improve VTE Mechanical Devices: Intermittant Pneumatic CD Resuscitation Status: CPR: Attempt Resuscitation Norris Rodriguez MD Nov 01, 2016 18:01
[2016-11-02] VITALS (12 sets, daily range): BP systolic 101–133; BP diastolic 46–65; PULSE 69–92; RESP 14–26; O2SAT 87–97
[2016-11-02] MEDS: Heparin 5,000 Unit/mL Inj SUBQ SCH ×3 (00:55→17:31)
[2016-11-02 06:35] LABS: BASOPHILS % (AUTO) 0.2 % (0-3); MONOCYTES % (AUTO) 6.1 % (4-12); Mean Corpuscular Volume 93.9 fL (81-100); NEUTROPHILS % (AUTO) 77.5 % (40-74); Platelet Count 214 bil/L (150-400)
[2016-11-02] MEDS: predniSONE 5 mg Tablet PO SCH (08:51)
[2016-11-02] MEDS: Lidocaine Topical 5% Patch TOPICAL SCH (08:52)
[2016-11-02] MEDS: Nystatin 100,000 Unit/Gm 15 Gm Powder TOPICAL SCH ×2 (08:53→20:36)
--- NOTE | 2016-11-02 11:42 | PCM.PNNEPH ---
Subjective Date of Service Nov 02, 2016 Subjective The patient was seen and examined and I have thoroughly reviewed all her medical record and especially Dr. Moss's notes. She has a history of liver and renal transplant dating back about 12 years. This was done at [facility] where she has continued to follow-up. Apparently she has had some progressive decline in her renal function last several years and in the last few weeks or so has had progressive edema and anasarca. She appears to have come in with some acute on chronic kidney injury. Since admission she has had some worsening of her renal function. Unfortunately she has not had any urine output recorded although she is urinating. In addition she is able to give some history but some of the history is very curved the patient does not work. Her blood pressure today has been good. She has had an echocardiogram which showed evidence of diastolic dysfunction. This morning her sodium is 134, potassium 5.4, chloride 99, bicarbonate 18, BUN and creatinine were 57 and 4.6. She does appear to have lost some of her edema. Ultrasound of the transplanted kidney did not show any evidence of edema masses or obstruction however there was some increased echogenicity consistent with chronic kidney disease. has had a discussion with the transplant field support specialist at [facility] concerning this patient. Exam Vital Signs Vital Sign - Last Date Time Temp Pulse Resp B/P Pulse Ox O2 Delivery O2 Flow Rate FiO2 11/02/16 10:52 80 11/02/16 10:00 37.1 18 125/64 95 Nasal Cannula 2.00 Intake and Output 11/01/16 11/01/16 11/02/16 Cumulative From/Thru 15:00 23:00 07:00 10/25/16 10:47 - 11/02/16 05:31 Intake Total 844 ml 380 ml 6719 ml Output Total 4600 ml Balance 844 ml 380 ml 2119 ml Intake Oral 400 ml 380 ml 4100 ml IV Total 444 ml 2032 ml Packed Cells 587 ml Output Urine Total 4600 ml Urine/Stool Mix 0 ml # Voids 2 3 9 # Bowel Movements 3 1 6 Exam HEENT examination is remarkable for pale sclera. Cornea, conjunctiva, pupils, and extraocular muscles were unremarkable. Neck is supple without adenopathy, thyromegaly, some mild to moderate jugular venous distention at 60. Lungs showed a few bibasilar rales. Poor inspiratory effort. Heart was regular and rhythmical with a soft systolic murmur. Abdomen is soft with evidence of free fluid wave. There was some mild generalized tenderness especially in the right CVA region. She also had evidence of hepatomegaly, pulsatile liver, and hepatojugular reflux was noted. Extremities showed moderate pitting edema predominantly confined to both distal lower extremities however she did have pitting edema in the thighs and in her sacral area, half and half nails were noted. Lab and Diagnostics Result Diagram: 11/02/1654411/02/16544 X-Rays, CTs and MRIs . X-RAY CHEST ONE VIEW, PORTABLE IMPRESSION: Reduced inspiratory volume, without identified trauma. Dictated by: Francisco Rivera M.D. on 10/25/2016 X-RAY CHEST ONE VIEW, PORTABLE IMPRESSION: Pleural effusions left greater than right with left basilar atelectasis or infiltrate. Dictated by: Bennie Strauss M.D. on 10/26/2016 US ABDOMEN DOPPLER IMPRESSION: 1. Poorly seen [place] kidneys with a right abdominal transplant kidney. 2. The main portal vein and the hepatic veins are patent. Renal vasculature was not evaluated. Dictated by: Bennie Strauss M.D. on 10/26/2016 US VENOUS LEG DUPLEX BILATERAL IMPRESSION: No DVT in lower extremities bilaterally. Dictated by: Nolan Ulloa M.D. on 10/26/2016 US RENAL TRANSPLANT EVALUATION IMPRESSION: 1. The transplant kidney demonstrates mild cortical thinning. 2. No hydronephrosis. 3. Increased resistive index of transplant kidney. 4. Renal artery and renal vein (transplant kidney) are patent. Dictated by: Nolan Ulloa M.D. on 10/27/2016 CT LUMBAR SPINE WITHOUT CONTRAST IMPRESSION: 1. No fracture. No acute osseous lesion. If there are persistent symptoms or continued clinical suspicion for pathology, then MRI should be considered for further evaluation. 2. Multilevel degenerative disc disease and facet arthropathy which may be causing significant bilateral L3-L4 and L4-L5 as well as the left L5-S1 neural foraminal narrowing. Dictated by: Leigh Ann Lilly MD, PhD on 10/27/2016 PROCEDURE: X-RAY CHEST ONE VIEW, PORTABLE ([id number]) INDICATIONS: dyspnea TECHNIQUE: One view of the chest was acquired. COMPARISON: None. FINDINGS: Surgical changes and devices: None. Lungs and pleura: No pleural effusions or pneumothorax. Lungs are edematous and the inspiratory volume is reduced. There is at least left basilar atelectasis if not superimposed mild pneumonia. Mediastinum: Mediastinal contours appear normal. Heart size is normal. Bones and chest wall: No suspicious bony lesions. Overlying soft tissues appear unremarkable. IMPRESSION: Reduced inspiratory volume, mild pulmonary edema pattern, left basilar atelectasis and/or pneumonia. 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 This has been present on prior CT scanning also. No appreciable change. Dictated by: Francisco Rivera M.D. on 10/30/2016 at 12:55 Approved by: Francisco Rivera M.D. on 10/30/2016 at 12:56 ADDENDUM: SC posterior aspect of the left seventh rib there is a vertically oriented fracture, only minimally displaced, which cannot be clearly visualized on an old comparison chest plain film from 04/18/16. The more recent chest plain films do not allow excellent visualization through that area a due to reduced inspiration in overlapping mediastinal structures but it was not clearly present 10/25/16, the best visualization on recent plain films. No definite osteolytic or blastic lesion is seen in that area. COMPARISON: [facility], CR, XR CHEST 1VW (PORTABLE), 10/26/2016, 15:07. [facility], CR, XR CHEST 1VW (PORTABLE), 10/25/2016, 11:18. [facility], CR, XR CHEST 2VW, 04/18/2016, 14:34. Dictated by: Francisco Rivera M.D. on 10/30/2016 at 13:24 12-lead ECG SR,incomplete RBBB Cardiac Echo Impressions Interpretation Summary The ejection fraction is estimated to be 70-75%. The left atrium is severely dilated. The right atrium is mild to moderately dilated. There is moderate mitral annular calcification. The mitral valve mean gradient is 4 mmHg. There is mild to moderate mitral regurgitation. The aortic valve is moderately calcified. There is no hemodynamically significant valvular aortic stenosis. There is mild tricuspid regurgitation. The right ventricular systolic pressure is estimated at 34 mmHg assuming a right atrial pressure of 3 mm Hg. Plan Impression Impression #1 acute on chronic kidney disease secondary to group B streptococcal cystitis with pyelonephritis. #2 status post liver transplant and renal transplant #3 anasarca which appears to be improving numbers for metabolic acidosis #5 anemia secondary to chronic kidney disease #6 hypertension with hypertensive heart disease and hypertensive nephrosclerosis with congestive heart failure/diastolic dysfunction #7 cystitis/pyelonephritis secondary to group B streptococcus. Recommendations #1 tablet to continue to cautiously diurese this patient and continue to follow her lab. Dr. Moss has started Aranesp which we will continue on a weekly basis. I would also like to add sodium bicarbonate 650 mg twice a day for her underlying metabolic acidosis. Krish Smith DO Nov 02, 2016 11:42
--- NOTE | 2016-11-02 15:22 | PCM.PNMED ---
Subjective Date of Service Nov 02, 2016 Subjective Continues to have generalized weakness unchanged from yesterday. Kidney function continues to worsen. Exam Vital Signs Vital Sign - Last Date Time Temp Pulse Resp B/P Pulse Ox O2 Delivery O2 Flow Rate FiO2 11/02/16 15:11 36.4 86 20 133/65 90 Nasal Cannula 11/02/16 14:20 2.50 Intake and Output 11/01/16 11/01/16 11/02/16 Cumulative From/Thru 15:00 23:00 07:00 10/25/16 10:47 - 11/02/16 05:31 Intake Total 844 ml 380 ml 6719 ml Output Total 4600 ml Balance 844 ml 380 ml 2119 ml Intake Oral 400 ml 380 ml 4100 ml IV Total 444 ml 2032 ml Packed Cells 587 ml Output Urine Total 4600 ml Urine/Stool Mix 0 ml # Voids 2 3 9 # Bowel Movements 3 1 6 Exam General: No acute distress, well-developed, well-nourished, appropriately interactive HEENT: Normocephalic, atraumatic. External ears without defect. Pupils equal, round, and reactive to light and accommodation. Neck: Supple with full range of motion. No jugular venous distension. No bruits. No lymphadenopathy or thyromegaly. Cardiovascular: Regular rate and rhythm with no murmurs, rubs, or gallops appreciated Pulmonary: Crackles on lower chest bilaterally Abdomen: Bowel tones present. Soft, nontender, nondistended. No hepatosplenomegaly or masses appreciated. Extremities: No clubbing, cyanosis, edema, or lymphadenopathy appreciated. Skin: Normal temperature, turgor, and texture; no rash, ulcers, or subcutaneous nodules appreciated. Neurological: Cranial nerves grossly intact. Normal muscle strength, tone, and bulk. Psychiatric: Normal mood and affect. Alert and oriented to person, place, and time. MSK: Left paraspinal thoracic tenderness. IVs and Medications Medications Reviewed: Medications were reviewed in detail Lab and Diagnostics Result Diagram: 11/02/1645 11/02/1645 X-Rays, CTs and MRIs . X-RAY CHEST ONE VIEW, PORTABLE IMPRESSION: Reduced inspiratory volume, without identified trauma. Dictated by: Francisco Rivera M.D. on 10/25/2016 X-RAY CHEST ONE VIEW, PORTABLE IMPRESSION: Pleural effusions left greater than right with left basilar atelectasis or infiltrate. Dictated by: Bennie Strauss M.D. on 10/26/2016 US ABDOMEN DOPPLER IMPRESSION: 1. Poorly seen [place] kidneys with a right abdominal transplant kidney. 2. The main portal vein and the hepatic veins are patent. Renal vasculature was not evaluated. Dictated by: Bennie Strauss M.D. on 10/26/2016 US VENOUS LEG DUPLEX BILATERAL IMPRESSION: No DVT in lower extremities bilaterally. Dictated by: Nolan Ulloa M.D. on 10/26/2016 US RENAL TRANSPLANT EVALUATION IMPRESSION: 1. The transplant kidney demonstrates mild cortical thinning. 2. No hydronephrosis. 3. Increased resistive index of transplant kidney. 4. Renal artery and renal vein (transplant kidney) are patent. Dictated by: Nolan Ulloa M.D. on 10/27/2016 CT LUMBAR SPINE WITHOUT CONTRAST IMPRESSION: 1. No fracture. No acute osseous lesion. If there are persistent symptoms or continued clinical suspicion for pathology, then MRI should be considered for further evaluation. 2. Multilevel degenerative disc disease and facet arthropathy which may be causing significant bilateral L3-L4 and L4-L5 as well as the left L5-S1 neural foraminal narrowing. Dictated by: Leigh Ann Lilly MD, PhD on 10/27/2016 PROCEDURE: X-RAY CHEST ONE VIEW, PORTABLE ([id number]) INDICATIONS: dyspnea TECHNIQUE: One view of the chest was acquired. COMPARISON: None. FINDINGS: Surgical changes and devices: None. Lungs and pleura: No pleural effusions or pneumothorax. Lungs are edematous and the inspiratory volume is reduced. There is at least left basilar atelectasis if not superimposed mild pneumonia. Mediastinum: Mediastinal contours appear normal. Heart size is normal. Bones and chest wall: No suspicious bony lesions. Overlying soft tissues appear unremarkable. IMPRESSION: Reduced inspiratory volume, mild pulmonary edema pattern, left basilar atelectasis and/or pneumonia. 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 This has been present on prior CT scanning also. No appreciable change. Dictated by: Francisco Rivera M.D. on 10/30/2016 at 12:55 Approved by: Francisco Rivera M.D. on 10/30/2016 at 12:56 ADDENDUM: SC posterior aspect of the left seventh rib there is a vertically oriented fracture, only minimally displaced, which cannot be clearly visualized on an old comparison chest plain film from 04/18/16. The more recent chest plain films do not allow excellent visualization through that area a due to reduced inspiration in overlapping mediastinal structures but it was not clearly present 10/25/16, the best visualization on recent plain films. No definite osteolytic or blastic lesion is seen in that area. COMPARISON: [facility], CR, XR CHEST 1VW (PORTABLE), 10/26/2016, 15:07. [facility], CR, XR CHEST 1VW (PORTABLE), 10/25/2016, 11:18. [facility], CR, XR CHEST 2VW, 04/18/2016, 14:34. Dictated by: Francisco Rivera M.D. on 10/30/2016 at 13:24 12-lead ECG SR,incomplete RBBB Cardiac Echo Impressions Interpretation Summary The ejection fraction is estimated to be 70-75%. The left atrium is severely dilated. The right atrium is mild to moderately dilated. There is moderate mitral annular calcification. The mitral valve mean gradient is 4 mmHg. There is mild to moderate mitral regurgitation. The aortic valve is moderately calcified. There is no hemodynamically significant valvular aortic stenosis. There is mild tricuspid regurgitation. The right ventricular systolic pressure is estimated at 34 mmHg assuming a right atrial pressure of 3 mm Hg. Assessment & Plan Ms. Jelena Merritt is a very pleasant 81 year old lady with a past medical history of hepatic and bilateral renal transplants in 2004, hypertension, DM, presented to the [facility] Emergency Department due to back pain after a fall from ground level. # Acute on chronic Kidney injury. Present on admission. Active. - Creatinine on admission 2.99, baseline ~ 2.6. ,worsened to 4.36today -US KUB transplant unremarkable - Avoid nephrotoxic insults. -lasix 40mg iv given on 10/28,10/29,10/30 . It seems Yonathan is combination of ATN from infection/dehydration, labile BP and overdiuresis -held lasix ,last dose 10/30 -nephrology following -nephrology discussed with family re [employer] .will hold off diuretics or IV fluids and follow closely -Continue sodium bicarbonate tablets. # Acute on chronic Normocytic Anemia requiring transfusion . Present on admission. - Hgb on admit 7.7. Prior levels inpatient and outpatient baseline between 9 and 10. -Hb 7.0 10/30,2 PRBCs transfused. -anemia likely due to CKD # suspected acute on chronic diastolic Congestive Heart failure, present on admission. Active. - ECHO as above with norml EF - BNP on admit 12k. > 20,000 on 10/30 - EKG reviewed - Sinus rhythm, PAC's, RBBB. -Initially held home furosemide 20 mg daily. lasix 40mg iv prn x3 per nephrology .now on hold due to worsening Yonathan # acute hypoxic respiratory failre due to fluid overload and rib fracture -fluid overload due to YONATHAN on CKD ,acute on chronic diastolic CHF and possible atelectasis rib fracure -Patient requiring 2L of oxygen and desaturates to mid 80s on room air -mx of contributing factors as above # Acute complicated UTI , resolved -initial tachycardia at 110,low grade fever,pyuria,procal elevated at 5 -urine culture GBS -started cefepime, switched to Ancef 10/27 . Broaden again to cefepime due to new leukocytosis 10/31. Discontinued antibiotics today 11/02 ( completed 7 days course ) -uti probably caused the fall # Elevated troponin,improved -due to YONATHAN on CKD , trended down -ASA 1 dose given initially -LA severely dilated on echo,RVSP 34,d-dimer elated ,.LE duplex negative . # Hypertension - held home Valsartan 80 mg HS due to YONATHAN -nephrology switching metoprolol to labetalol . a dose of amlodipine 5mg given on 10/29 # Elevated d-dimer -unclear significance -LA severely dilated on echo,RVSP 34,d-dimer elated , .not a candidate for CTA .LE duplex negative . # Acute lumbar Back pain, 2nd to traumatic Fall from Ground level. Present on admission. Active. - CT lumbar negative for fracture -pain control with morphine - Physical therapy eval ordered. - fall due to UTI # GLF -due to UTI -Low vitamin D at 19.9 noted. Started vitamin D 1000 units daily -cxr 10/30 revealed rib fracture that wan not reported on prior XRs . incentive spirometry given # Hx of Hepatic and Renal transplant, 2004, present on admission. Active. - Continue Tacrolimus 1mg AM/HS. - Continue home Prednisone 5 mg daily. # Hyperlipemia - Continue home Pravastatin 40 mg daily. # Depression - Continue home Sertraline 20 mg HS. Acetaminophen for mild pain when necessary. Bowel regimen Senna and MiraLAX scheduled and PRN. Zofran when necessary for nausea and vomiting. SubQ heparin for now. SCDs in place. inpatient full code Disposition: pending clinical course.[facility]( [facility] .dc once kidney function improve VTE Mechanical Devices: Intermittant Pneumatic CD Resuscitation Status: CPR: Attempt Resuscitation Norris Rodriguez MD Nov 02, 2016 15:22
--- NOTE | 2016-11-02 22:42 | ABG ---
DateTimeAnalyzed 22:30:00 -_ pH ____7.329 - 7.350 7.450 pCO2 ___38.4__ -mmHg 35.0 45.0 pO2 ___67.7__ -mmHg 69.0 116 HCO3- ___19.6__ -mmol/L 22.0 26.0 ABE ___-5.3__ -mmol/L -2.0 2.0 tHb ___10.6__ -g/dL 12.0 18.0 O2Hb ___90.6__ -% COHb ____1.1__ -% 0.0 1.5 MetHb ____0.8__ -% 0.4 1.5 sO2 ___92.4__ -% FIO2 ___35.0__ -% Drawn By blf - Date/Time Notified____ 22:42:00 -_ Spontaneous_RR ___24.0__ -b/min Liter_Flow ____5.5__ -L/min Oxygen Device 1 _oxy mask - Notified By blf - Notified Whom Billy Angélica RN -___ B 758 -mmHg tO2 ___13.6__ -Vol% OrderingPhysicianInitials mf - Bro test N/A -
--- NOTE | 2016-11-02 23:45 | PCM.PNMED ---
Subjective Date of Service Nov 02, 2016 Subjective Nurse called to report patient was more hypoxic and in respiratory distress. Respiratory therapist has increased oxygen to 3 L. A/P Hypoxic Respiratory Failure Etiology unclear but suspect Hear failure - plan to initiate BIPAP and transfer to [facility] - repeat CXR - no diuretics ordered due to renal failure Micah Cuello MD Nov 02, 2016 23:45
[2016-11-03] VITALS (9 sets, daily range): BP systolic 97–120; BP diastolic 39–46; PULSE 71–86; RESP 11–19; O2SAT 95–99
[2016-11-03] MEDS: Heparin 5,000 Unit/mL Inj SUBQ SCH ×3 (00:31→16:38)
[2016-11-03 07:22] LABS: BASOPHILS % (AUTO) 0.2 % (0-3); MONOCYTES % (AUTO) 7.2 % (4-12); Mean Corpuscular Hemoglobin 29.6 pg (27.0-35.0); Mean Corpuscular Volume 96.2 fL (81-100); NEUTROPHILS % (AUTO) 75.3 % (40-74); Platelet Count 190 bil/L (150-400)
[2016-11-03 07:43] LABS: Phosphorus 4.6 mg/dL (2.5-4.9)
[2016-11-03] MEDS: predniSONE 5 mg Tablet PO SCH (08:30)
[2016-11-03] MEDS: Lidocaine Topical 5% Patch TOPICAL SCH (10:33)
[2016-11-03] MEDS: Nystatin 100,000 Unit/Gm 15 Gm Powder TOPICAL SCH ×2 (10:34→21:28)
[2016-11-03] MEDS ORDERED: Furosemide 10 mg/mL 10 mL Inj IVPUSH SCH (11:50)
--- NOTE | 2016-11-03 11:52 | PCM.PNNEPH ---
Subjective Date of Service Nov 03, 2016 Subjective Events last night have been reviewed. The patient's chest x-ray and she continues to demonstrate moderate pulmonary edema along with a left pleural effusion and cardiomegaly. She is currently on BiPAP. In reviewing her medications initiated she is not on any diuretics at this time despite significant fluid overload. She is quite somnolent and somewhat difficult to arouse. Her urine output has not been able to be recorded because of ongoing incontinence. Her morning her sodium is 1:30, potassium 5.8, chloride 99, bicarbonate 17, BUN and creatinine are improving at 61 and 4.7 respectively. Her hemoglobin is 9.4. Her arterial blood gas shows a partially compensated metabolic acidosis. Systolic blood pressures are in the 90s. Exam Vital Signs Vital Sign - Last Date Time Temp Pulse Resp B/P Pulse Ox O2 Delivery O2 Flow Rate FiO2 11/03/16 09:57 84 11/03/16 08:44 CPAP/BIPAP 11/03/16 05:24 15 97/40 95 40 11/03/16 03:36 37.3 11/02/16 21:20 3.00 Intake and Output 11/02/16 11/02/16 11/03/16 Cumulative From/Thru 15:00 23:00 07:00 10/25/16 10:47 - 11/03/16 05:09 Intake Total 0 ml 6719 ml Output Total 4600 ml Balance 0 ml 2119 ml Intake Oral 0 ml 4100 ml IV Total 2032 ml Packed Cells 587 ml Output Urine Total 4600 ml Urine/Stool Mix 0 ml # Voids 1 10 # Bowel Movements 0 6 Exam Neck is supple without adenopathy or thyromegaly. She does have jugular venous distention at about 45. Lungs showed diffuse rales and scattered rhonchi with intermittent end expiratory wheeze. Heart sounds are distant but appear to be regular. Abdomen is soft with evidence of non-tense ascites. Liver is pulsatile evidence of hepatojugular reflux. Extremities shows some decrease in edema but she continues to have mild pitting edema throughout both lower extremities. Lab and Diagnostics Result Diagram: 11/03/1670411/03/16704 X-Rays, CTs and MRIs . X-RAY CHEST ONE VIEW, PORTABLE IMPRESSION: Reduced inspiratory volume, without identified trauma. Dictated by: Francisco Rivera M.D. on 10/25/2016 X-RAY CHEST ONE VIEW, PORTABLE IMPRESSION: Pleural effusions left greater than right with left basilar atelectasis or infiltrate. Dictated by: Bennie Strauss M.D. on 10/26/2016 US ABDOMEN DOPPLER IMPRESSION: 1. Poorly seen [place] kidneys with a right abdominal transplant kidney. 2. The main portal vein and the hepatic veins are patent. Renal vasculature was not evaluated. Dictated by: Bennie Strauss M.D. on 10/26/2016 US VENOUS LEG DUPLEX BILATERAL IMPRESSION: No DVT in lower extremities bilaterally. Dictated by: Nolan Ulloa M.D. on 10/26/2016 US RENAL TRANSPLANT EVALUATION IMPRESSION: 1. The transplant kidney demonstrates mild cortical thinning. 2. No hydronephrosis. 3. Increased resistive index of transplant kidney. 4. Renal artery and renal vein (transplant kidney) are patent. Dictated by: Nolan Ulloa M.D. on 10/27/2016 CT LUMBAR SPINE WITHOUT CONTRAST IMPRESSION: 1. No fracture. No acute osseous lesion. If there are persistent symptoms or continued clinical suspicion for pathology, then MRI should be considered for further evaluation. 2. Multilevel degenerative disc disease and facet arthropathy which may be causing significant bilateral L3-L4 and L4-L5 as well as the left L5-S1 neural foraminal narrowing. Dictated by: Leigh Ann Lilly MD, PhD on 10/27/2016 PROCEDURE: X-RAY CHEST ONE VIEW, PORTABLE ([id number]) INDICATIONS: dyspnea TECHNIQUE: One view of the chest was acquired. COMPARISON: None. FINDINGS: Surgical changes and devices: None. Lungs and pleura: No pleural effusions or pneumothorax. Lungs are edematous and the inspiratory volume is reduced. There is at least left basilar atelectasis if not superimposed mild pneumonia. Mediastinum: Mediastinal contours appear normal. Heart size is normal. Bones and chest wall: No suspicious bony lesions. Overlying soft tissues appear unremarkable. IMPRESSION: Reduced inspiratory volume, mild pulmonary edema pattern, left basilar atelectasis and/or pneumonia. 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 This has been present on prior CT scanning also. No appreciable change. Dictated by: Francisco Rivera M.D. on 10/30/2016 at 12:55 Approved by: Francisco Rivera M.D. on 10/30/2016 at 12:56 ADDENDUM: SC posterior aspect of the left seventh rib there is a vertically oriented fracture, only minimally displaced, which cannot be clearly visualized on an old comparison chest plain film from 04/18/16. The more recent chest plain films do not allow excellent visualization through that area a due to reduced inspiration in overlapping mediastinal structures but it was not clearly present 10/25/16, the best visualization on recent plain films. No definite osteolytic or blastic lesion is seen in that area. COMPARISON: [facility], CR, XR CHEST 1VW (PORTABLE), 10/26/2016, 15:07. [facility], CR, XR CHEST 1VW (PORTABLE), 10/25/2016, 11:18. [facility], CR, XR CHEST 2VW, 04/18/2016, 14:34. Dictated by: Francisco Rivera M.D. on 10/30/2016 at 13:24 12-lead ECG SR,incomplete RBBB Cardiac Echo Impressions Interpretation Summary The ejection fraction is estimated to be 70-75%. The left atrium is severely dilated. The right atrium is mild to moderately dilated. There is moderate mitral annular calcification. The mitral valve mean gradient is 4 mmHg. There is mild to moderate mitral regurgitation. The aortic valve is moderately calcified. There is no hemodynamically significant valvular aortic stenosis. There is mild tricuspid regurgitation. The right ventricular systolic pressure is estimated at 34 mmHg assuming a right atrial pressure of 3 mm Hg. Plan Impression Impression #1 acute on chronic kidney injury which is partially resolving #2 status post cadaveric renal transplant #3 status post liver transplant #4 hypertension with hypertensive heart disease and hypertensive nephrosclerosis with acute congestive heart diastolic dysfunction Recommendations #1 to restart furosemide 60 mg every 8 hours for 4 doses. Krish Smith DO Nov 03, 2016 11:52
[2016-11-03] MEDS: Darbepoetin Alfa 60 mCg/0.3 mL Inj SUBQ SCH (12:03)
--- NOTE | 2016-11-03 12:16 | DRSVH ---
PROCEDURE: X-RAY CHEST ONE VIEW, PORTABLE ([id number]) INDICATIONS: SHORTNESS OF BREATH TECHNIQUE: One view of the chest was acquired. COMPARISON: [facility], CR, XR CHEST 1VW (PORTABLE), 10/31/2016, 17:50. FINDINGS: Surgical changes and devices: None. Lungs and pleura: Lung volumes are low. Diffuse, widespread bilateral pulmonary interstitial and air space opacities are present similar to prior examination. Small pleural effusions. No pneumothorax . Mediastinum: Mediastinal contours appear normal. Heart size is enlarged. Mitral annular calcificat ion redemonstrated. Bones and chest wall: No suspicious bony lesions. Overlying soft tissues appear unremarkable. IMPRESSION: 1. Pulmonary edema and/or diffuse bilateral pneumonia similar to prior examination. 2. Small pleural effusions. 3. Cardiomegaly. Dictated by: Colin Munoz [facility] Interpreted: Nolan Ulloa MD on 11/03/2016 at 10:12 Approved by: Nolan Ulloa M.D. on 11/03/2016 at 12:15
[2016-11-03] MEDS: Furosemide 10 mg/mL 4 mL Inj IVPUSH SCH ×2 (13:29→16:37)
[2016-11-03] MEDS ORDERED: Acetaminophen IV 1,000 MG in IV Premix 1 EACH IV PRN (16:40)
--- NOTE | 2016-11-03 17:19 | PCM.PNMED ---
Subjective Date of Service Nov 03, 2016 Subjective Today, patient is on BiPAP. She is somnolent at bedside and is very difficult to arouse. She has not had much urinary output. Patient was transferred from [facility] because she became hypoxic and was in respiratory distress. Per nursing notes, when she was transferred from [facility] last night, patient was able to respond to her name by opening her eyes but pt did not answer any questions, only groans when moved. She was working hard to breath and was using accessory muscles to breath. ROS is unobtainable because patient is somnolent. Exam Vital Signs Vital Sign - Last Date Time Temp Pulse Resp B/P Pulse Ox O2 Delivery O2 Flow Rate FiO2 11/03/16 06:05 CPAP/BIPAP 11/03/16 06:04 84 11/03/16 05:24 15 97/40 95 40 11/03/16 03:36 37.3 11/02/16 21:20 3.00 Intake and Output 11/02/16 11/02/16 11/03/16 Cumulative From/Thru 15:00 23:00 07:00 10/25/16 10:47 - 11/03/16 05:09 Intake Total 0 ml 6719 ml Output Total 4600 ml Balance 0 ml 2119 ml Intake Oral 0 ml 4100 ml IV Total 2032 ml Packed Cells 587 ml Output Urine Total 4600 ml Urine/Stool Mix 0 ml # Voids 1 10 # Bowel Movements 0 6 Exam General: Patient is lying on bed, sedated HEENT: head normocephalic and atraumatic, PERRLA, EOMI, no scleral icterus, noninjected conjunctiva Neck: neck supple, no lymphadenopathy, trachea midline, JVD present CV: distant heart sounds, regular rate and rhythm, s1 and s2 heard, no murmur, no rubs murmurs or gallops, 1+ pitting edema bilaterally Lungs:On bipap, Abdomen: normoactive bowel sounds on 4Q, soft, non-distended, , Skin: warm and dry Musculoskeletal: unable to assess muscle strength Neuro:unable to assess Psych: Patient is somnolent. IVs and Medications IV Fluids not receiving IV fluids Medications Reviewed: Medications were reviewed in detail Lab and Diagnostics Result Diagram: 11/03/1670411/03/16 07 X-Rays, CTs and MRIs . X-RAY CHEST ONE VIEW, PORTABLE IMPRESSION: Reduced inspiratory volume, without identified trauma. Dictated by: Francisco Rivera M.D. on 10/25/2016 X-RAY CHEST ONE VIEW, PORTABLE IMPRESSION: Pleural effusions left greater than right with left basilar atelectasis or infiltrate. Dictated by: Bennie Strauss M.D. on 10/26/2016 US ABDOMEN DOPPLER IMPRESSION: 1. Poorly seen [place] kidneys with a right abdominal transplant kidney. 2. The main portal vein and the hepatic veins are patent. Renal vasculature was not evaluated. Dictated by: Bennie Strauss M.D. on 10/26/2016 US VENOUS LEG DUPLEX BILATERAL IMPRESSION: No DVT in lower extremities bilaterally. Dictated by: Nolan Ulloa M.D. on 10/26/2016 US RENAL TRANSPLANT EVALUATION IMPRESSION: 1. The transplant kidney demonstrates mild cortical thinning. 2. No hydronephrosis. 3. Increased resistive index of transplant kidney. 4. Renal artery and renal vein (transplant kidney) are patent. Dictated by: Nolan Ulloa M.D. on 10/27/2016 CT LUMBAR SPINE WITHOUT CONTRAST IMPRESSION: 1. No fracture. No acute osseous lesion. If there are persistent symptoms or continued clinical suspicion for pathology, then MRI should be considered for further evaluation. 2. Multilevel degenerative disc disease and facet arthropathy which may be causing significant bilateral L3-L4 and L4-L5 as well as the left L5-S1 neural foraminal narrowing. Dictated by: Leigh Ann Lilly MD, PhD on 10/27/2016 PROCEDURE: X-RAY CHEST ONE VIEW, PORTABLE ([id number]) INDICATIONS: dyspnea TECHNIQUE: One view of the chest was acquired. COMPARISON: None. FINDINGS: Surgical changes and devices: None. Lungs and pleura: No pleural effusions or pneumothorax. Lungs are edematous and the inspiratory volume is reduced. There is at least left basilar atelectasis if not superimposed mild pneumonia. Mediastinum: Mediastinal contours appear normal. Heart size is normal. Bones and chest wall: No suspicious bony lesions. Overlying soft tissues appear unremarkable. IMPRESSION: Reduced inspiratory volume, mild pulmonary edema pattern, left basilar atelectasis and/or pneumonia. 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 This has been present on prior CT scanning also. No appreciable change. Dictated by: Francisco Rivera M.D. on 10/30/2016 at 12:55 Approved by: Francisco Rivera M.D. on 10/30/2016 at 12:56 ADDENDUM: SC posterior aspect of the left seventh rib there is a vertically oriented fracture, only minimally displaced, which cannot be clearly visualized on an old comparison chest plain film from 04/18/16. The more recent chest plain films do not allow excellent visualization through that area a due to reduced inspiration in overlapping mediastinal structures but it was not clearly present 10/25/16, the best visualization on recent plain films. No definite osteolytic or blastic lesion is seen in that area. COMPARISON: [facility], CR, XR CHEST 1VW (PORTABLE), 10/26/2016, 15:07. [facility], CR, XR CHEST 1VW (PORTABLE), 10/25/2016, 11:18. [facility], CR, XR CHEST 2VW, 04/18/2016, 14:34. Dictated by: Francisco Rivera M.D. on 10/30/2016 at 13:24 12-lead ECG SR,incomplete RBBB Cardiac Echo Impressions Interpretation Summary The ejection fraction is estimated to be 70-75%. The left atrium is severely dilated. The right atrium is mild to moderately dilated. There is moderate mitral annular calcification. The mitral valve mean gradient is 4 mmHg. There is mild to moderate mitral regurgitation. The aortic valve is moderately calcified. There is no hemodynamically significant valvular aortic stenosis. There is mild tricuspid regurgitation. The right ventricular systolic pressure is estimated at 34 mmHg assuming a right atrial pressure of 3 mm Hg. Assessment & Plan Ms. Jelena Merritt is a very pleasant 81 year old lady with a past medical history of hepatic and bilateral renal transplants in 2004, hypertension, DM, presented to the [facility] Emergency Department due to back pain after a fall from ground level. # Acute on chronic Kidney injury. Present on admission. Active. - Creatinine on admission 2.99, baseline ~ 2.6.. Today it is 4.70 -Today, Sodium is 1:30, potassium 5.8, chloride 99, bicarbonate 17, BUN and creatinine are improving at 61 and 4.7 respectively -US KUB transplant unremarkable - Avoid nephrotoxic insults. -lasix 40mg iv given on 10/28,10/29,10/30 . It seems Yonathan is combination of ATN from infection/dehydration, labile BP and overdiuresis -held lasix ,last dose 10/30 -nephrology following -Per nephrology today, we will restart furosemide 60 mg every 8 hours for 4 doses -Given declining renal function and progressive fluid overload, family is agreeable to comfort measures and we will consult palliative tomorrow -Patient's code status was changed to DNR/DNI -Continue medical management but avoid interventions that will produce significant distress # Acute on chronic Normocytic Anemia requiring transfusion . Present on admission. - Hgb on admit 7.7. Prior levels inpatient and outpatient baseline between 9 and 10. -Hb 7.0 10/30,2 PRBCs transfused. -anemia likely due to CKD -Started Aranesp 60 mg # suspected acute on chronic diastolic Congestive Heart failure, present on admission. Active. - ECHO as above with norml EF - BNP on admit 12k. > 20,000 on 10/30 - EKG reviewed - Sinus rhythm, PAC's, RBBB. -Initially held home furosemide 20 mg daily but now restarting furosemide 60 mg every 8 hours for 4 doses -monitor weights and fluid output -Patient was started on BiPap # acute hypoxic respiratory failure due to fluid overload and rib fracture -fluid overload due to YONATHAN on CKD ,acute on chronic diastolic CHF and possible atelectasis as well as left 7th rib fracure -Patient requiring 2L of oxygen and desaturates to mid 80s on room air -mx of contributing factors as above # Acute complicated UTI , resolved -initial tachycardia at 110,low grade fever,pyuria,procal elevated at 5 -urine culture GBS -started cefepime, switched to Ancef 10/27 . Broaden again to cefepime due to new leukocytosis 10/31. Discontinued antibiotics on 11/02 ( completed 7 days course ) -uti probably caused the fall # Elevated troponin,improved -due to YONATHAN on CKD , trended down -ASA 1 dose given initially -LA severely dilated on echo,RVSP 34,d-dimer elated ,.LE duplex negative . # Hypertension, stable - held home Valsartan 80 mg HS due to YONATHAN -holding blood pressure meds # Elevated d-dimer -unclear significance -LA severely dilated on echo,RVSP 34,d-dimer elated , .not a candidate for CTA .LE duplex negative . # Acute lumbar Back pain, 2nd to traumatic Fall from Ground level. Present on admission. Active. - CT lumbar negative for fracture -pain control with morphine - Physical therapy eval ordered. - fall due to UTI # GLF -due to UTI -Low vitamin D at 19.9 noted. Started vitamin D 1000 units daily -cxr 10/30 revealed rib fracture that wan not reported on prior XRs . incentive spirometry given # Hx of Hepatic and Renal transplant, 2004, present on admission. Active. - Continue Tacrolimus 1mg AM/HS. Patient is currently npo. Will obtain Tacrolimus trough and assess - Continue home Prednisone 5 mg daily. # Hyperlipemia - Hold home Pravastatin 40 mg daily as patient is npo # Depression - Hold home Sertraline 20 mg HS as patient is npo. Acetaminophen for mild pain when necessary. Bowel regimen Senna and MiraLAX scheduled and PRN. Zofran when necessary for nausea and vomiting. SubQ heparin for now. SCDs in place. Code Status: DNR/DNI Disposition: pending clinical course.patient accepted at care home facility( ) .dc once kidney function improve VTE Mechanical Devices: Intermittant Pneumatic CD Resuscitation Status: CPR: Attempt Resuscitation Time spent 45 minutes Attending Statement I have seen and evaluated patient at bedside in addition to directly supervising care provided by resident physician Dr Conner. I agree with above documentation. Lisa Conner DO Nov 03, 2016 09:45 Pedro Bruce DO Nov 04, 2016 08:02
--- NOTE | 2016-11-03 18:52 | PCM.ADCARE ---
Advance Care Planning Note Purpose of Encounter: Discuss code status Parties in Attendance: Patient (marginally responsive) , Youngest daughter (POA), step-son, myself Decisional Capacity: Pt alert but unable to make medical decisions Subjective: Guven declining renal function, dialysis seems only intervention which may provide benefit given failure of IV diuretics and progressive volume overload. Family agrees, daughters and other not present, that this is not in patient's best interests, and they would rather pursue comfort measures. Objective: Pt on BiPAP breathing comfortable. Minimal urine output. No acute distress. Goals of Care Determinations: Will continue medical management, avoid interventions which may produce significant distress. Will pursue palliative care consult in AM. Plan: As noted above, continue Lasix IV, BiPAP will be most aggressive respiratory support. Continue to monitor. CODE STATUS: Change to DNR/DNI Time Spent Adv.Care Plannin minutes Pedro Bruce DO Nov 03, 2016 18:52
[2016-11-04 00:55] VITALS: BP 115/45; RESP 15; O2SAT 97
[2016-11-04] MEDS: Furosemide 10 mg/mL 4 mL Inj IVPUSH SCH ×3 (01:05→15:45)
[2016-11-04] MEDS: Heparin 5,000 Unit/mL Inj SUBQ SCH ×3 (01:07→15:45)
[2016-11-04 02:25] VITALS: BP 126/49; PULSE 72; RESP 18; O2SAT 97
[2016-11-04 02:56] LABS: BASOPHILS % (AUTO) 0.2 % (0-3); EOSINOPHILS % (AUTO) 2.6 % (0-5); MONOCYTES % (AUTO) 8.9 % (4-12); Mean Corpuscular Hemoglobin 30.1 pg (27.0-35.0); Mean Corpuscular Volume 95.3 fL (81-100); NEUTROPHILS % (AUTO) 66.8 % (40-74); Platelet Count 225 bil/L (150-400)
--- NOTE | 2016-11-04 05:44 | ABG ---
DateTimeAnalyzed 05:36:00 -_ pH ____7.298 - 7.350 7.450 pCO2 ___38.0__ -mmHg 35.0 45.0 pO2 ___81.7__ -mmHg 69.0 116 HCO3- ___18.0__ -mmol/L 22.0 26.0 ABE ___-7.3__ -mmol/L -2.0 2.0 tHb ___10.0__ -g/dL 12.0 18.0 O2Hb ___93.4__ -% COHb ____1.1__ -% 0.0 1.5 MetHb ____1.0__ -% 0.4 1.5 sO2 ___95.4__ -% FIO2 ___30.0__ -% CPAP ___10.0__ -cmH2O PEEP ____5.0__ -cmH2O Set_RR ___12.0__ -b/min Drawn By TLA - Date/Time Notified____ 05:44:00 -_ Spontaneous_RR ___24.0__ -b/min Oxygen Device 1 ____BIPAP - Notified By TLA - Notified Whom _Chery-RN - B 758 -mmHg tO2 ___13.2__ -Vol% Bro test _Positive -
[2016-11-04 06:18] VITALS: PULSE 81
--- NOTE | 2016-11-04 07:53 | PCM.PNMED ---
Subjective Date of Service Nov 04, 2016 Subjective Today, patient wakes to gentle stimuli or when alerted by family/visitors. She was taken off the Bipap because she was attempting to pull it off as it caused discomfort. Family met with palliative care and discussed goals, which include keeping her comfortable and reducing amount of stress. Per nursing, Overnight, she exhibited some discomfort when turned for care, otherwise denied pain. She Rested intermittently with eyes closed. ROS not obtained as patient is somnolent Exam Vital Signs Vital Sign - Last Date Time Temp Pulse Resp B/P Pulse Ox O2 Delivery O2 Flow Rate FiO2 11/04/16 06:18 81 11/04/16 04:22 CPAP/BIPAP 11/04/16 02:25 36.7 18 126/49 97 11/04/16 00:55 30 11/03/16 21:15 3.00 Intake and Output 11/03/16 11/03/16 11/04/16 Cumulative From/Thru 15:00 23:00 07:00 10/25/16 10:47 - 11/04/16 05:14 Intake Total 0 ml 0 ml 6719 ml Output Total 50 ml 4650 ml Balance -50 ml 0 ml 2069 ml Intake Oral 0 ml 0 ml 4100 ml IV Total 2032 ml Packed Cells 587 ml Output Urine Total 50 ml 4650 ml Urine/Stool Mix 0 ml # Voids 2 12 # Bowel Movements 1 0 7 Exam General: Patient is lying on bed, woke up for a short period of time, but quite somnolent HEENT: head normocephalic and atraumatic, PERRLA, EOMI, no scleral icterus, noninjected conjunctiva Neck: neck supple, no lymphadenopathy, trachea midline, JVD present CV: distant heart sounds, regular rate and rhythm, s1 and s2 heard, no murmur, no rubs murmurs or gallops, 1+ pitting edema bilaterally Lungs:on bipap, anterior lung brennan sounded clear Abdomen: normoactive bowel sounds on 4Q, soft, non-distended, , Skin: warm and dry Musculoskeletal: unable to assess muscle strength Neuro:unable to assess Psych: Patient was more awake today and greeted me. IVs and Medications Medications Reviewed: Medications were reviewed in detail Medications High risk medications include IV morphine and Dilaudid Lab and Diagnostics Result Diagram: 11/04/16 02211/04/16 0220 X-Rays, CTs and MRIs . X-RAY CHEST ONE VIEW, PORTABLE IMPRESSION: Reduced inspiratory volume, without identified trauma. Dictated by: Francisco Rivera M.D. on 10/25/2016 X-RAY CHEST ONE VIEW, PORTABLE IMPRESSION: Pleural effusions left greater than right with left basilar atelectasis or infiltrate. Dictated by: Bennie Strauss M.D. on 10/26/2016 US ABDOMEN DOPPLER IMPRESSION: 1. Poorly seen [place] kidneys with a right abdominal transplant kidney. 2. The main portal vein and the hepatic veins are patent. Renal vasculature was not evaluated. Dictated by: Bennie Strauss M.D. on 10/26/2016 US VENOUS LEG DUPLEX BILATERAL IMPRESSION: No DVT in lower extremities bilaterally. Dictated by: Nolan Ulloa M.D. on 10/26/2016 US RENAL TRANSPLANT EVALUATION IMPRESSION: 1. The transplant kidney demonstrates mild cortical thinning. 2. No hydronephrosis. 3. Increased resistive index of transplant kidney. 4. Renal artery and renal vein (transplant kidney) are patent. Dictated by: Nolan Ulloa M.D. on 10/27/2016 CT LUMBAR SPINE WITHOUT CONTRAST IMPRESSION: 1. No fracture. No acute osseous lesion. If there are persistent symptoms or continued clinical suspicion for pathology, then MRI should be considered for further evaluation. 2. Multilevel degenerative disc disease and facet arthropathy which may be causing significant bilateral L3-L4 and L4-L5 as well as the left L5-S1 neural foraminal narrowing. Dictated by: Leigh Ann Lilly MD, PhD on 10/27/2016 PROCEDURE: X-RAY CHEST ONE VIEW, PORTABLE ([id number]) INDICATIONS: dyspnea TECHNIQUE: One view of the chest was acquired. COMPARISON: None. FINDINGS: Surgical changes and devices: None. Lungs and pleura: No pleural effusions or pneumothorax. Lungs are edematous and the inspiratory volume is reduced. There is at least left basilar atelectasis if not superimposed mild pneumonia. Mediastinum: Mediastinal contours appear normal. Heart size is normal. Bones and chest wall: No suspicious bony lesions. Overlying soft tissues appear unremarkable. IMPRESSION: Reduced inspiratory volume, mild pulmonary edema pattern, left basilar atelectasis and/or pneumonia. 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 This has been present on prior CT scanning also. No appreciable change. Dictated by: Francisco Rivera M.D. on 10/30/2016 at 12:55 Approved by: Francisco Rivera M.D. on 10/30/2016 at 12:56 ADDENDUM: SC posterior aspect of the left seventh rib there is a vertically oriented fracture, only minimally displaced, which cannot be clearly visualized on an old comparison chest plain film from 04/18/16. The more recent chest plain films do not allow excellent visualization through that area a due to reduced inspiration in overlapping mediastinal structures but it was not clearly present 10/25/16, the best visualization on recent plain films. No definite osteolytic or blastic lesion is seen in that area. COMPARISON: [facility], CR, XR CHEST 1VW (PORTABLE), 10/26/2016, 15:07. [facility], CR, XR CHEST 1VW (PORTABLE), 10/25/2016, 11:18. [facility], CR, XR CHEST 2VW, 04/18/2016, 14:34. Dictated by: Francisco Rivera M.D. on 10/30/2016 at 13:24 12-lead ECG SR,incomplete RBBB Cardiac Echo Impressions Interpretation Summary The ejection fraction is estimated to be 70-75%. The left atrium is severely dilated. The right atrium is mild to moderately dilated. There is moderate mitral annular calcification. The mitral valve mean gradient is 4 mmHg. There is mild to moderate mitral regurgitation. The aortic valve is moderately calcified. There is no hemodynamically significant valvular aortic stenosis. There is mild tricuspid regurgitation. The right ventricular systolic pressure is estimated at 34 mmHg assuming a right atrial pressure of 3 mm Hg. Assessment & Plan Ms. Jelena Merritt is a very pleasant 81 year old lady with a past medical history of hepatic and bilateral renal transplants in 2005, hypertension, DM, presented to the [facility] Emergency Department due to back pain after a fall from ground level. # Acute on chronic Kidney injury. Present on admission. Active. - Creatinine on admission 2.99, baseline ~ 2.6.. -Today, Sodium is 1:30, potassium 5.8, chloride 99, bicarbonate 16, BUN and creatinine are worsening at 66 and 4.84 respectively -US KUB transplant unremarkable - Avoid nephrotoxic insults. -lasix 40mg iv given on 10/28,10/29,10/30 . It seems Yonathan is combination of ATN from infection/dehydration, labile BP and overdiuresis -held lasix ,last dose 10/30 -nephrology following -Per nephrology today, we restarted furosemide 60 mg every 8 hours for 4 doses. However, patient had poor response -Given declining renal function and progressive fluid overload, family is agreeable to comfort measures and palliative care was consulted today. We greatly appreciate their input -Patient's code status was changed to DNR/DNI -Continue medical management but avoid interventions that will produce significant distress -Palliative Goals from family is to keep her comfortable and decrease level of anxiety # Acute on chronic Normocytic Anemia requiring transfusion . Present on admission. - Hgb on admit 7.7. Prior levels inpatient and outpatient baseline between 9 and 10. -Hb 7.0 10/30,2 PRBCs transfused. -anemia likely due to CKD -Started Aranesp 60 mg # suspected acute on chronic diastolic Congestive Heart failure, present on admission. Active. - ECHO as above with norml EF - BNP on admit 12k. > 20,000 on 10/30 - EKG reviewed - Sinus rhythm, PAC's, RBBB. -Initially held home furosemide 20 mg daily then restarted furosemide 60 mg every 8 hours for 4 doses and now stopped it due to limited response -monitored weights and fluid output -Patient was started on BiPap but discontinued today as it made her uncomfortable # acute hypoxic respiratory failure due to fluid overload and rib fracture -fluid overload due to YONATHAN on CKD ,acute on chronic diastolic CHF and possible atelectasis as well as left 7th rib fracure -mx of contributing factors as above # Acute complicated UTI , resolved -initial tachycardia at 110,low grade fever,pyuria,procal elevated at 5 -urine culture GBS -started cefepime, switched to Ancef 10/27 . Broaden again to cefepime due to new leukocytosis 10/31. Discontinued antibiotics on 11/02 ( completed 7 days course ) -uti probably caused the fall # Elevated troponin,improved -due to YONATHAN on CKD , trended down -ASA 1 dose given initially -LA severely dilated on echo,RVSP 34,d-dimer elated ,.LE duplex negative . # Hypertension, stable - held home Valsartan 80 mg HS due to YONATHAN -holding blood pressure meds # Elevated d-dimer -unclear significance -LA severely dilated on echo,RVSP 34,d-dimer elated , .not a candidate for CTA .LE duplex negative . # Acute lumbar Back pain, 2nd to traumatic Fall from Ground level. Present on admission. Active. - CT lumbar negative for fracture -pain control with morphine - Physical therapy eval ordered. - fall due to UTI # GLF -due to UTI -Low vitamin D at 19.9 noted. Started vitamin D 1000 units daily -cxr 10/30 revealed rib fracture that wan not reported on prior XRs . incentive spirometry given # Hx of Hepatic and Renal transplant, 2004, present on admission. Active. - Hold Tacrolimus 1mg AM/HS. Patient is currently npo. Tacrolimus trough is acceptable - Continue home Prednisone 5 mg daily. # Hyperlipemia - Hold home Pravastatin 40 mg daily as patient is npo # Depression - Hold home Sertraline 20 mg HS as patient is npo. Acetaminophen for mild pain when necessary. Bowel regimen Senna and MiraLAX scheduled and PRN. Zofran when necessary for nausea and vomiting. SubQ heparin for now. SCDs in place. Code Status: DNR/DNI Disposition: Per family, patient is now comfort measures Pain Evaluation: Adequate Pain Control VTE Mechanical Devices: Intermittant Pneumatic CD Resuscitation Status: CPR: Attempt Resuscitation Time spent 35 minutes Attending Statement I have seen and evaluated the patient at bedside in addition to directly supervising care provided by Dr Conner on 11/04/2016. I agree with above documentation. Appreciate the support of multiple specialists, Nephrology and Palliative care. In conjunction with family, we have determined a transition to supportive and comfort care to be in best accordance with patient wishes given underlying medical condition at this time. Lisa Conner DO Nov 04, 2016 07:53 Pedro Bruce DO Nov 05, 2016 07:56
[2016-11-04 08:15] VITALS: BP 120/42; PULSE 88; RESP 21; O2SAT 97
[2016-11-04] MEDS: predniSONE 5 mg Tablet PO SCH (08:18)
[2016-11-04] MEDS: Lidocaine Topical 5% Patch TOPICAL SCH (08:33)
[2016-11-04] MEDS: Nystatin 100,000 Unit/Gm 15 Gm Powder TOPICAL SCH ×2 (08:34→22:56)
[2016-11-04 09:37] VITALS: PULSE 85
--- NOTE | 2016-11-04 10:18 | PCM.CONPAL ---
Date of Service Nov 04, 2016 Date of Hospital Admission: Oct 25, 2016 at 15:17 Date of Palliative Consult: Nov 04, 2016 Requesting Provider: Pedro Bowie DO Reason Palliative Care Consult: Other Symptoms, Goals of Care Discussion Hospital Unit @time of consult: [facility] Palliative Care Recommendation Summary of palliative recommendations: -Symptom management (Pain/other) CRF with progression and 2ndary CHF from diastolic component Decision is not to pursue dialysis. DYSPNEA- Comfort with BIPAP or 02 with N/C as tolerated-ok to stop checking sats and treating depending on sx Profound fatigue and debility. PPS is 10% Goals of Care-At this point not decisional. All family aligned in goals. also aware. Goals from family- keep her comfortable and anxiety down. If placement is needed-they prefer [facility] be near her . Reviewed may be days or weeks Goal is comfort only. Interest in hospice depending on insurance issues. -DPOA/Advanced Directives/POLST-- DNR/DNI. Now comfort -Family/emotional support-very strong family support. Large family supportive of each other therefore burden is less. Problems: End of Life Preferences DNR Goals of Care Supportive/comfort. Minimize unnecessary meds and treatments. Disposition CM to be involved re financial ? and placement possibilities--[facility] Resuscitation Status Resuscitation Status: DNR/DNI:Do Not Resuscitate/Intubate Limited Interventions: Medications and IV Fluid POLST Updates/Changes Artificially Admin Nutrition: No Artifical Nutrition by Tube . Advanced Care Planning Address: Code status change, Comfort care Symptom management: Anxiety, Dyspnea Pt History History of Present Illness PALLIATIVE CARE CONSULTATION Reason for consult: goals of care and sx management Referring provider: Dr. Rob Bowie PCP Dr. 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 She has had progressive deterioration of renal fxn over the past year and secondary CHF. She had a bout of nausea and lightheadedness causing her to fall backward. She initially declined to come to the hospital but was not able to weight bear due to pain and was admitted. She has been seen by renal and trial of diuresing has been unsuccessful in managing her CHF. She is alert but does not engage in complex decision making which is deferred to her daughters by her . There has been discussion regarding dialysis but patient has not been interested in this in the past and family requested discussion on goals of care. Patient has been on BIPAP now trying to pull it off. Tends to drift to sleep easily. 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 Magnesium Oxide 500 mg PO noon Multivit with calcium, iron, min 1 each AM Pravastatin 40 mg HS Prednisone 5 mg AM Sertraline 50 mg PO HS Tacrolimus 1 Mg PO HS Tacrolimus 1 MG PO AM Valsartan 80 mg HS Allergies: Coded Allergies: Sulfa (Sulfonamide Antibiotics) (Verified Allergy, Unknown, 02/23/15) codeine (Verified Allergy, Unknown, 11/01/12) miconazole (Verified Allergy, Unknown, 11/01/12) spironolactone (Verified Allergy, Unknown, 11/01/12) Family History Family History Mother - CHF Father - Leukemia Sister- breast CA Bro-esophageal CA Social History Social Support: lots of family support with extended family Living Situation: living with her invalid -[facility] Pall[facility] Performance Scale PPS Patient Status: Baseline (past few months) PPS Ambulation: Mainly Sit/Lie PPS Activity: Unable to do any activity PPS Self-Care: Occasional assistance necessary PPS Intake: Minimal to sips PPS Conscious Level: Full or drowsey, +/- confusion Performance Scale: 50% Allergy Allergies Reviewed: Yes Medications Current Medications: Current Medications Furosemide 60 mg Q8 IVPUSH; Start 11/03/16 at 11:50; Stop 11/03/16 at 13:26; Status DC Furosemide 60 mg 60 mg Q8 IVPUSH Last administered on 11/04/16t 08:33; Admin Dose 60 MG; Start 11/03/16 at 13:26 Acetaminophen/ Premix 100 ml @ 400 mls/hr Q6H PRN IV; Start 11/03/16 at 16:40 ; Stop 11/04/16 at 16:41 Scheduled Aspirin (Aspirin) 81 Mg Tablet 81 MG PO Evening Calcium Citrate/Vitamin D3 (Citracal + D Maximum Caplet) 1 Each Tablet 1 EACH PO Noon Furosemide (Lasix) 20 Mg Tablet 20 MG PO DAILY Gabapentin (Gabapentin) 300 Mg Capsule 300 MG PO TID Lactobacillus Combination No.4 (Probiotic) 1 Each Capsule 1 EACH PO AM Magnesium Oxide (Magnesium) 500 Mg Capsule 500 MG PO noon Multivit with Calcium,Iron,Min (Maximum Daily Multivitamin) 1 Each Tablet 1 EACH PO AM Pravastatin (Pravastatin) 40 Mg Tablet 40 MG PO HS Prednisone (PredniSONE) 5 Mg Tab 5 MG PO AM Sertraline HCl (Sertraline) 20 Mg/1 Ml Oral.conc 50 MG PO HS Tacrolimus (Tacrolimus) 1 Mg Capsule 1 MG PO HS Tacrolimus (Tacrolimus) 1 Mg Capsule 1 MG PO AM Valsartan (Diovan) 80 Mg Tablet 80 MG PO HS Objective Findings Exam Vital Sign - Last Date Time Temp Pulse Resp B/P Pulse Ox O2 Delivery O2 Flow Rate FiO2 11/04/16 09:37 85 11/04/16 09:15 CPAP/BIPAP 11/04/16 08:15 21 120/42 97 40 11/04/16 02:25 36.7 11/03/16 21:15 3.00 Intake and Output 11/03/16 11/03/16 11/04/16 Cumulative From/Thru 15:00 23:00 07:00 10/25/16 10:47 - 11/04/16 05:14 Intake Total 0 ml 0 ml 6719 ml Output Total 50 ml 4650 ml Balance -50 ml 0 ml 2069 ml Intake Oral 0 ml 0 ml 4100 ml IV Total 2032 ml Packed Cells 587 ml Output Urine Total 50 ml 4650 ml Urine/Stool Mix 0 ml # Voids 2 12 # Bowel Movements 1 0 7 General: Alert, Oriented, Person HEENT: PERRLA, EOMI, Scleral Anicteric Heart: Dysrhythmia Present Lungs: Diminished Neuro: Other Extremities: Edema (2+) Lab/Diagnostics Lab and Imaging results reviewed in detail in EMR. Patient/Family Conference Members Present Family Members Present 4 adult children-Ermelinda Boyce, another daughter who is DPOAHC and another brother Medical Team Members Present? Nida HERNANDEZ PC and Renetta Hope MSW PC Discussion/Goals of Care Discussion FAMILY UNDERSTANDING OF DISEASE: Family very well versed in severity of illness and sees EOL. Recognize not taking her immunosuppressants with NPO status and recognize very short time DISEASE PROGRESSION/EVIDENCE OF DECLINE: Family aware of progression of ds and decision has been not to pursue dialysis and aim for comfort SYMPTOM BURDEN: pt is more comfortable for present time with NC but may still need CPAP/BIPAP for sx of CHF GOALS: comfort. would prefer she in hospital HOPES/WORRIES: Pt had repeatedly asked not to in an ECF. Her transferred to [facility] for predatory animal exterminator care with this acute illness. Time spent Total time 45 minutes; >50% face to face with patient and/or family, providing counselling regarding plans and recommendations, and in care coordination with his/her medical teams. I also spent an additional 20 minutes counseling for advanced care planning with the patient/the patients family/the surrogate decision maker. copies to: Aris Caruso MD, Deborah A MD Nov 04, 2016 10:18 Time spent Total time [ ] minutes; >50% face to face with patient and/or family, providing counselling regarding plans and recommendations, and in care coordination with his/her medical teams. I also spent an additional [ ] minutes counseling for advanced care planning with the patient/the patients family/the surrogate decision maker. Katey Tadeo MD Nov 04, 2016 10:18
--- NOTE | 2016-11-04 15:27 | PCM.PNNEPH ---
Subjective Date of Service Nov 04, 2016 Subjective The patient's condition is consistent is beginning to worsen. Her BUN and creatinine are rising and she is a bit less arousable. Her blood pressure is good. Exam Vital Signs Vital Sign - Last Date Time Temp Pulse Resp B/P Pulse Ox O2 Delivery O2 Flow Rate FiO2 11/04/16 09:37 85 11/04/16 09:15 CPAP/BIPAP 11/04/16 08:15 21 120/42 97 40 11/04/16 02:25 36.7 11/03/16 21:15 3.00 Intake and Output 11/03/16 11/03/16 11/04/16 Cumulative From/Thru 15:00 23:00 07:00 10/25/16 10:47 - 11/04/16 05:14 Intake Total 0 ml 0 ml 6719 ml Output Total 50 ml 4650 ml Balance -50 ml 0 ml 2069 ml Intake Oral 0 ml 0 ml 4100 ml IV Total 2032 ml Packed Cells 587 ml Output Urine Total 50 ml 4650 ml Urine/Stool Mix 0 ml # Voids 2 12 # Bowel Movements 1 0 7 Exam Neck is supple without adenopathy, thyromegaly, or jugular venous distention. Lungs show markedly diminished breath sounds secondary to very poor inspiratory effort. Heart is regular and rhythmic with a soft systolic murmur. Abdomen is soft with diminished bowel sounds. There is some mild pitting generalized edema noted. Lab and Diagnostics Result Diagram: 11/04/16 0220 11/04/16 0220 X-Rays, CTs and MRIs . X-RAY CHEST ONE VIEW, PORTABLE IMPRESSION: Reduced inspiratory volume, without identified trauma. Dictated by: Francisco Rivera M.D. on 10/25/2016 X-RAY CHEST ONE VIEW, PORTABLE IMPRESSION: Pleural effusions left greater than right with left basilar atelectasis or infiltrate. Dictated by: Bennie Strauss M.D. on 10/26/2016 US ABDOMEN DOPPLER IMPRESSION: 1. Poorly seen [facility] [place] [facility] with a right abdominal transplant kidney. 2. The main portal vein and the hepatic veins are patent. Renal vasculature was not evaluated. Dictated by: Bennie Strauss M.D. on 10/26/2016 US VENOUS LEG DUPLEX BILATERAL IMPRESSION: No DVT in lower extremities bilaterally. Dictated by: Nolan Ulloa M.D. on 10/26/2016 US RENAL TRANSPLANT EVALUATION IMPRESSION: 1. The transplant kidney demonstrates mild cortical thinning. 2. No hydronephrosis. 3. Increased resistive index of transplant kidney. 4. Renal artery and renal vein (transplant kidney) are patent. Dictated by: Nolan Ulloa M.D. on 10/27/2016 CT LUMBAR SPINE WITHOUT CONTRAST IMPRESSION: 1. No fracture. No acute osseous lesion. If there are persistent symptoms or continued clinical suspicion for pathology, then MRI should be considered for further evaluation. 2. Multilevel degenerative disc disease and facet arthropathy which may be causing significant bilateral L3-L4 and L4-L5 as well as the left L5-S1 neural foraminal narrowing. Dictated by: Leigh Ann Lilly MD, PhD on 10/27/2016 PROCEDURE: X-RAY CHEST ONE VIEW, PORTABLE ([id number]) INDICATIONS: dyspnea TECHNIQUE: One view of the chest was acquired. COMPARISON: None. FINDINGS: Surgical changes and devices: None. Lungs and pleura: No pleural effusions or pneumothorax. Lungs are edematous and the inspiratory volume is reduced. There is at least left basilar atelectasis if not superimposed mild pneumonia. Mediastinum: Mediastinal contours appear normal. Heart size is normal. Bones and chest wall: No suspicious bony lesions. Overlying soft tissues appear unremarkable. IMPRESSION: Reduced inspiratory volume, mild pulmonary edema pattern, left basilar atelectasis and/or pneumonia. 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 This has been present on prior CT scanning also. No appreciable change. Dictated by: Francisco Rivera M.D. on 10/30/2016 at 12:55 Approved by: Francisco Rivera M.D. on 10/30/2016 at 12:56 ADDENDUM: SC posterior aspect of the left seventh rib there is a vertically oriented fracture, only minimally displaced, which cannot be clearly visualized on an old comparison chest plain film from 04/18/16. The more recent chest plain films do not allow excellent visualization through that area a due to reduced inspiration in overlapping mediastinal structures but it was not clearly present 10/25/16, the best visualization on recent plain films. No definite osteolytic or blastic lesion is seen in that area. COMPARISON: [facility], CR, XR CHEST 1VW (PORTABLE), 10/26/2016, 15:07. [facility], CR, XR CHEST 1VW (PORTABLE), 10/25/2016, 11:18. [facility], CR, XR CHEST 2VW, 04/18/2016, 14:34. Dictated by: Francisco Rivera M.D. on 10/30/2016 at 13:24 12-lead ECG SR,incomplete RBBB Cardiac Echo Impressions Interpretation Summary The ejection fraction is estimated to be 70-75%. The left atrium is severely dilated. The right atrium is mild to moderately dilated. There is moderate mitral annular calcification. The mitral valve mean gradient is 4 mmHg. There is mild to moderate mitral regurgitation. The aortic valve is moderately calcified. There is no hemodynamically significant valvular aortic stenosis. There is mild tricuspid regurgitation. The right ventricular systolic pressure is estimated at 34 mmHg assuming a right atrial pressure of 3 mm Hg. Plan Impression Impression #1 most likely it appears that she is at end-stage renal disease. Recommendations #1 I had a long and eden discussion with the patient's family as to our options and they are in agreement that they do not want dialysis or any aggressive intervention attention on the patient's behalf. They are meeting with palliative care this afternoon. Krish Smith DO Nov 04, 2016 15:27
[2016-11-04] MEDS: HYDROmorphone 0.5 mg/0.5 mL iSecure Syringe IVPUSH PRN ×2 (16:34→21:19)
[2016-11-05] MEDS: Heparin 5,000 Unit/mL Inj SUBQ SCH ×2 (00:30→08:02)
[2016-11-05] MEDS: Furosemide 10 mg/mL 4 mL Inj IVPUSH SCH ×4 (00:30→20:56)
[2016-11-05] MEDS: HYDROmorphone 0.5 mg/0.5 mL iSecure Syringe IVPUSH PRN ×2 (01:01→20:27)
[2016-11-05] MEDS ORDERED: Haloperidol 5 mg/mL Inj IVPUSH PRN (05:30)
[2016-11-05] MEDS: Atropine 1% 5 mL Ophthalmic Solution PO PRN ×3 (06:09→20:26)
[2016-11-05 06:28] LABS: Mean Corpuscular Hemoglobin 29.4 pg (27.0-35.0); Mean Corpuscular Volume 95.7 fL (81-100); Platelet Count 285 bil/L (150-400)
[2016-11-05 07:34] LABS: BASOPHILS % (AUTO) 0 % (0-3); EOSINOPHILS % (AUTO) 3 % (0-5); MONOCYTES % (AUTO) 4 % (4-12); NEUTROPHILS % (AUTO) 71 % (40-74)
[2016-11-05] MEDS: predniSONE 5 mg Tablet PO SCH (08:01)
[2016-11-05] MEDS: Nystatin 100,000 Unit/Gm 15 Gm Powder TOPICAL SCH ×2 (08:02→20:30)
--- NOTE | 2016-11-05 08:57 | PCM.PALLBR ---
Palliative Care Recommendation Summary of palliative recommendations: -Symptom management (Pain/other): comfort care continues. 1. Start scheduled dilaudid 1mg IV q 4 hours for moaning, possible pain and SOB relief 2. Continue scopolamine patch for excess secretions and add lasix IV 20mg BID for this. Prognosis: less than 24 hours. Goals from family- keep her comfortable and anxiety down. If placement is needed-they prefer [facility] to be near her . Goal is comfort only. Interest in hospice depending on insurance issues. -DPOA/Advanced Directives/POLST-- DNR/DNI. Now comfort -Family/emotional support-very strong family support. Large family supportive of each other therefore burden is less. Problems: End of Life Preferences DNR Goals of Care Supportive/comfort. Minimize unnecessary meds and treatments. Disposition CM to be involved re financial ? and placement possibilities--[facility] Resuscitation Status Resuscitation Status: DNR/DNI:Do Not Resuscitate/Intubate Limited Interventions: Medications and IV Fluid POLST Updates/Changes Artificially Admin Nutrition: No Artifical Nutrition by Tube . Pain: Mild Symptom management: Anxiety Total time [ 35] minutes; >50% face to face with patient and/or family, providing counselling regarding plans and recommendations, and in care coordination with his/her medical teams. Palliative Brief Note Date of Service Nov 05, 2016 . Patient Identification: Reason for consult: goals of care and sx management Referring provider: Dr. Rob Bowie PCP Dr. 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 She has had progressive deterioration of renal fxn over the past year and secondary CHF. She had a bout of nausea and lightheadedness causing her to fall backward. She initially declined to come to the hospital but was not able to weight bear due to pain and was admitted. She has been seen by renal and trial of diuresing has been unsuccessful in managing her CHF. She is alert but does not engage in complex decision making which is deferred to her daughters by her . There has been discussion regarding dialysis but patient has not been interested in this in the past and family requested discussion on goals of care. Hospital Course: Family met with Palliative Joint Supervisor Dr. Tadeo 11/04 and elected comfort care for their loved one. Dr. Sprague reviewed prior notes, MAY and met with family at bedside this morning. Pt is now unconscious, and appears comfortable. Exam: Pt is breathing irregular shallow breaths, no brow furrowing, occasional intermittent moaning with a breath. Scop patch under left mandible. Lungs: decreased breath sounds with wet endotracheal noises. Heart: S1,S2, irregular with skipped beats, bradycardic rhythm. no murmur. Abdomen: soft, infrequent bowel sounds. nondistended. Extrem: skin warm with scattered eccymoses, no mottling observed yet on knees or extremities, 1+ edema at ankles b/l. Sivan Sprague MD Nov 05, 2016 08:57 Sivan Sprague MD Nov 05, 2016 08:57
[2016-11-05] MEDS: Lidocaine Topical 5% Patch TOPICAL SCH (10:01)
[2016-11-05] MEDS: HYDROmorphone 1 mg/mL Inj IVPUSH SCH ×4 (10:03→20:50)
--- NOTE | 2016-11-05 11:09 | PCM.PNMED ---
Subjective Date of Service Nov 05, 2016 Subjective pt was not responding, comfort care initiated yesterday per Palliative care, transferred [place] [facility] [place] Vital Signs Vital Sign - Last Date Time Temp Pulse Resp B/P Pulse Ox O2 Delivery O2 Flow Rate FiO2 11/05/16 10:31 Supplement Oxygen 11/04/16 09:37 85 11/04/16 08:15 21 120/42 97 40 11/04/16 02:25 36.7 11/03/16 21:15 3.00 Intake and Output 11/04/16 11/04/16 11/05/16 Cumulative From/Thru 15:00 23:00 07:00 10/25/16 10:47 - 11/04/16 18:55 Intake Total 0 ml 6719 ml Output Total 4650 ml Balance 0 ml 2069 ml Intake Oral 0 ml 4100 ml IV Total 2032 ml Packed Cells 587 ml Output Urine Total 4650 ml Urine/Stool Mix 0 ml # Voids 2 14 # Bowel Movements 7 Exam lethargic, making incoherent sounds no JVD, MMM, no LAD RRR, nl s1, s2 no mrg bilateral coarse BS, rhonchi S,ND,NT,normoactive BS+ warm, 1+edema, pulses 1/2 IVs and Medications Medications Reviewed: Medications were reviewed in detail Lab and Diagnostics Result Diagram: 11/05/16 0600 11/05/16 0600 X-Rays, CTs and MRIs . X-RAY CHEST ONE VIEW, PORTABLE IMPRESSION: Reduced inspiratory volume, without identified trauma. Dictated by: Francisco Rivera M.D. on 10/25/2016 X-RAY CHEST ONE VIEW, PORTABLE IMPRESSION: Pleural effusions left greater than right with left basilar atelectasis or infiltrate. Dictated by: Bennie Strauss M.D. on 10/26/2016 US ABDOMEN DOPPLER IMPRESSION: 1. Poorly seen [place] kidneys with a right abdominal transplant kidney. 2. The main portal vein and the hepatic veins are patent. Renal vasculature was not evaluated. Dictated by: Bennie Strauss M.D. on 10/26/2016 US VENOUS LEG DUPLEX BILATERAL IMPRESSION: No DVT in lower extremities bilaterally. Dictated by: Nolan Ulloa M.D. on 10/26/2016 US RENAL TRANSPLANT EVALUATION IMPRESSION: 1. The transplant kidney demonstrates mild cortical thinning. 2. No hydronephrosis. 3. Increased resistive index of transplant kidney. 4. Renal artery and renal vein (transplant kidney) are patent. Dictated by: Nolan Ulloa M.D. on 10/27/2016 CT LUMBAR SPINE WITHOUT CONTRAST IMPRESSION: 1. No fracture. No acute osseous lesion. If there are persistent symptoms or continued clinical suspicion for pathology, then MRI should be considered for further evaluation. 2. Multilevel degenerative disc disease and facet arthropathy which may be causing significant bilateral L3-L4 and L4-L5 as well as the left L5-S1 neural foraminal narrowing. Dictated by: Leigh Ann Lilly MD, PhD on 10/27/2016 PROCEDURE: X-RAY CHEST ONE VIEW, PORTABLE ([id number]) INDICATIONS: dyspnea TECHNIQUE: One view of the chest was acquired. COMPARISON: None. FINDINGS: Surgical changes and devices: None. Lungs and pleura: No pleural effusions or pneumothorax. Lungs are edematous and the inspiratory volume is reduced. There is at least left basilar atelectasis if not superimposed mild pneumonia. Mediastinum: Mediastinal contours appear normal. Heart size is normal. Bones and chest wall: No suspicious bony lesions. Overlying soft tissues appear unremarkable. IMPRESSION: Reduced inspiratory volume, mild pulmonary edema pattern, left basilar atelectasis and/or pneumonia. 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 This has been present on prior CT scanning also. No appreciable change. Dictated by: Francisco Rivera M.D. on 10/30/2016 at 12:55 Approved by: Francisco Rivera M.D. on 10/30/2016 at 12:56 ADDENDUM: SC posterior aspect of the left seventh rib there is a vertically oriented fracture, only minimally displaced, which cannot be clearly visualized on an old comparison chest plain film from 04/18/16. The more recent chest plain films do not allow excellent visualization through that area a due to reduced inspiration in overlapping mediastinal structures but it was not clearly present 10/25/16, the best visualization on recent plain films. No definite osteolytic or blastic lesion is seen in that area. COMPARISON: [facility], CR, XR CHEST 1VW (PORTABLE), 10/26/2016, 15:07. [facility], CR, XR CHEST 1VW (PORTABLE), 10/25/2016, 11:18. [facility], CR, XR CHEST 2VW, 04/18/2016, 14:34. Dictated by: Francisco Rivera M.D. on 10/30/2016 at 13:24 12-lead ECG SR,incomplete RBBB Cardiac Echo Impressions Interpretation Summary The ejection fraction is estimated to be 70-75%. The left atrium is severely dilated. The right atrium is mild to moderately dilated. There is moderate mitral annular calcification. The mitral valve mean gradient is 4 mmHg. There is mild to moderate mitral regurgitation. The aortic valve is moderately calcified. There is no hemodynamically significant valvular aortic stenosis. There is mild tricuspid regurgitation. The right ventricular systolic pressure is estimated at 34 mmHg assuming a right atrial pressure of 3 mm Hg. Assessment & Plan Ms. Jelena Merritt is a very pleasant 81 year old lady with a past medical history of hepatic and bilateral renal transplants in 2004, hypertension, DM, presented to the [facility] Emergency Department due to back pain after a fall from ground level. Currently pt is on comfort care, started on dilaudid, ativan, scolopamine, appreciate Palliative care management. continue lasix for symptoms control prognosis is guarded. All questions answered with a daughter at the bedside # Acute on chronic Kidney injury. Present on admission. Active. - Creatinine on admission 2.99, baseline ~ 2.6.. -Today, Sodium is 1:30, potassium 5.8, chloride 99, bicarbonate 16, BUN and creatinine are worsening at 66 and 4.84 respectively -US KUB transplant unremarkable - Avoid nephrotoxic insults. -lasix 40mg iv given on 10/28,10/29,10/30 . It seems Yonathan is combination of ATN from infection/dehydration, labile BP and overdiuresis -held lasix ,last dose 10/30 -nephrology following -Per nephrology today, we restarted furosemide 60 mg every 8 hours for 4 doses. However, patient had poor response -Given declining renal function and progressive fluid overload, family is agreeable to comfort measures and palliative care was consulted today. We greatly appreciate their input -Patient's code status was changed to DNR/DNI -Continue medical management but avoid interventions that will produce significant distress -Palliative Goals from family is to keep her comfortable and decrease level of anxiety # Acute on chronic Normocytic Anemia requiring transfusion . Present on admission. - Hgb on admit 7.7. Prior levels inpatient and outpatient baseline between 9 and 10. -Hb 7.0 10/30,2 PRBCs transfused. -anemia likely due to CKD -Started Aranesp 60 mg # suspected acute on chronic diastolic Congestive Heart failure, present on admission. Active. - ECHO as above with norml EF - BNP on admit 12k. > 20,000 on 10/30 - EKG reviewed - Sinus rhythm, PAC's, RBBB. -Initially held home furosemide 20 mg daily then restarted furosemide 60 mg every 8 hours for 4 doses and now stopped it due to limited response -monitored weights and fluid output -Patient was started on BiPap but discontinued today as it made her uncomfortable # acute hypoxic respiratory failure due to fluid overload and rib fracture -fluid overload due to YONATHAN on CKD ,acute on chronic diastolic CHF and possible atelectasis as well as left 7th rib fracure -mx of contributing factors as above # Acute complicated UTI , resolved -initial tachycardia at 110,low grade fever,pyuria,procal elevated at 5 -urine culture GBS -started cefepime, switched to Ancef 10/27 . Broaden again to cefepime due to new leukocytosis 10/31. Discontinued antibiotics on 11/02 ( completed 7 days course ) -uti probably caused the fall # Elevated troponin,improved -due to YONATHAN on CKD , trended down -ASA 1 dose given initially -LA severely dilated on echo,RVSP 34,d-dimer elated ,.LE duplex negative . # Hypertension, stable - held home Valsartan 80 mg HS due to YONATHAN -holding blood pressure meds # Elevated d-dimer -unclear significance -LA severely dilated on echo,RVSP 34,d-dimer elated , .not a candidate for CTA .LE duplex negative . # Acute lumbar Back pain, 2nd to traumatic Fall from Ground level. Present on admission. Active. - CT lumbar negative for fracture -pain control with morphine - Physical therapy eval ordered. - fall due to UTI # GLF -due to UTI -Low vitamin D at 19.9 noted. Started vitamin D 1000 units daily -cxr 10/30 revealed rib fracture that wan not reported on prior XRs . incentive spirometry given # Hx of Hepatic and Renal transplant, 2004, present on admission. Active. - Hold Tacrolimus 1mg AM/HS. Patient is currently npo. Tacrolimus trough is acceptable - Continue home Prednisone 5 mg daily. # Hyperlipemia - Hold home Pravastatin 40 mg daily as patient is npo # Depression - Hold home Sertraline 20 mg HS as patient is npo. Acetaminophen for mild pain when necessary. Bowel regimen Senna and MiraLAX scheduled and PRN. Zofran when necessary for nausea and vomiting. SubQ heparin for now. SCDs in place. Code Status: DNR/DNI Disposition: Per family, patient is now comfort measures VTE Mechanical Devices: Intermittant Pneumatic CD Resuscitation Status: DNR/DNI:Do Not Resuscitate/Intubate Limited Interventions: Medications and IV Fluid Time spent 35min India Arambula MD Nov 05, 2016 11:09
--- NOTE | 2016-11-05 13:35 | PCM.PNNEPH ---
Subjective Date of Service Nov 05, 2016 Subjective Patient has been seen by palliative care and I have thoroughly reviewed the note. Right now they are talking about comfort measures only. I have discussed the case with the patient's and family and concur. This all we will go ahead and sign off the case. Should you have any questions or any issues please do not hesitate to contact us. Thank you for this kind consultation. For the kind consultation. Exam Vital Signs Vital Sign - Last Date Time Temp Pulse Resp B/P Pulse Ox O2 Delivery O2 Flow Rate FiO2 11/05/16 10:31 Supplement Oxygen 11/04/16 09:37 85 11/04/16 08:15 21 120/42 97 40 11/04/16 02:25 36.7 11/03/16 21:15 3.00 Intake and Output 11/04/16 11/04/16 11/05/16 Cumulative From/Thru 15:00 23:00 07:00 10/25/16 10:47 - 11/04/16 18:55 Intake Total 0 ml 6719 ml Output Total 4650 ml Balance 0 ml 2069 ml Intake Oral 0 ml 4100 ml IV Total 2032 ml Packed Cells 587 ml Output Urine Total 4650 ml Urine/Stool Mix 0 ml # Voids 2 14 # Bowel Movements 7 Lab and Diagnostics Result Diagram: 11/05/16 0600 11/05/16 0600 X-Rays, CTs and MRIs . X-RAY CHEST ONE VIEW, PORTABLE IMPRESSION: Reduced inspiratory volume, without identified trauma. Dictated by: Francisco Rivera M.D. on 10/25/2016 X-RAY CHEST ONE VIEW, PORTABLE IMPRESSION: Pleural effusions left greater than right with left basilar atelectasis or infiltrate. Dictated by: Bennie Strauss M.D. on 10/26/2016 US ABDOMEN DOPPLER IMPRESSION: 1. Poorly seen [place] kidneys with a right abdominal transplant kidney. 2. The main portal vein and the hepatic veins are patent. Renal vasculature was not evaluated. Dictated by: Bennie Strauss M.D. on 10/26/2016 US VENOUS LEG DUPLEX BILATERAL IMPRESSION: No DVT in lower extremities bilaterally. Dictated by: Nolan Ulloa M.D. on 10/26/2016 US RENAL TRANSPLANT EVALUATION IMPRESSION: 1. The transplant kidney demonstrates mild cortical thinning. 2. No hydronephrosis. 3. Increased resistive index of transplant kidney. 4. Renal artery and renal vein (transplant kidney) are patent. Dictated by: Nolan Ulloa M.D. on 10/27/2016 CT LUMBAR SPINE WITHOUT CONTRAST IMPRESSION: 1. No fracture. No acute osseous lesion. If there are persistent symptoms or continued clinical suspicion for pathology, then MRI should be considered for further evaluation. 2. Multilevel degenerative disc disease and facet arthropathy which may be causing significant bilateral L3-L4 and L4-L5 as well as the left L5-S1 neural foraminal narrowing. Dictated by: Leigh Ann Lilly MD, PhD on 10/27/2016 PROCEDURE: X-RAY CHEST ONE VIEW, PORTABLE ([id number]) INDICATIONS: dyspnea TECHNIQUE: One view of the chest was acquired. COMPARISON: None. FINDINGS: Surgical changes and devices: None. Lungs and pleura: No pleural effusions or pneumothorax. Lungs are edematous and the inspiratory volume is reduced. There is at least left basilar atelectasis if not superimposed mild pneumonia. Mediastinum: Mediastinal contours appear normal. Heart size is normal. Bones and chest wall: No suspicious bony lesions. Overlying soft tissues appear unremarkable. IMPRESSION: Reduced inspiratory volume, mild pulmonary edema pattern, left basilar atelectasis and/or pneumonia. 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 This has been present on prior CT scanning also. No appreciable change. Dictated by: Francisco Rivera M.D. on 10/30/2016 at 12:55 Approved by: Francisco Rivera M.D. on 10/30/2016 at 12:56 ADDENDUM: SC posterior aspect of the left seventh rib there is a vertically oriented fracture, only minimally displaced, which cannot be clearly visualized on an old comparison chest plain film from 04/18/16. The more recent chest plain films do not allow excellent visualization through that area a due to reduced inspiration in overlapping mediastinal structures but it was not clearly present 10/25/16, the best visualization on recent plain films. No definite osteolytic or blastic lesion is seen in that area. COMPARISON: [facility], CR, XR CHEST 1VW (PORTABLE), 10/26/2016, 15:07. [facility], CR, XR CHEST 1VW (PORTABLE), 10/25/2016, 11:18. [facility], CR, XR CHEST 2VW, 04/18/2016, 14:34. Dictated by: Francisco Rivera M.D. on 10/30/2016 at 13:24 12-lead ECG SR,incomplete RBBB Cardiac Echo Impressions Interpretation Summary The ejection fraction is estimated to be 70-75%. The left atrium is severely dilated. The right atrium is mild to moderately dilated. There is moderate mitral annular calcification. The mitral valve mean gradient is 4 mmHg. There is mild to moderate mitral regurgitation. The aortic valve is moderately calcified. There is no hemodynamically significant valvular aortic stenosis. There is mild tricuspid regurgitation. The right ventricular systolic pressure is estimated at 34 mmHg assuming a right atrial pressure of 3 mm Hg. Krish Smith DO Nov 05, 2016 13:35
[2016-11-06] MEDS: Atropine 1% 5 mL Ophthalmic Solution PO PRN ×7 (00:50→22:12)
[2016-11-06] MEDS: HYDROmorphone 1 mg/mL Inj IVPUSH SCH ×3 (00:50→08:53)
[2016-11-06] MEDS: Nystatin 100,000 Unit/Gm 15 Gm Powder TOPICAL SCH ×2 (08:30→20:19)
[2016-11-06] MEDS: Furosemide 10 mg/mL 4 mL Inj IVPUSH SCH ×3 (08:48→20:13)
[2016-11-06] MEDS: Lidocaine Topical 5% Patch TOPICAL SCH (08:49)
[2016-11-06] MEDS ORDERED: Morphine 100 mg/100 mL NS 100 MG in IV Premix 1 EACH IV SCH (09:35)
--- NOTE | 2016-11-06 10:12 | PCM.PNMED ---
Subjective Date of Service Nov 06, 2016 Subjective pt was not responsive, with agonal breathing Dilaudid switched to Morphine gtt. Exam Vital Signs Vital Sign - Last Date Time Temp Pulse Resp B/P Pulse Ox O2 Delivery O2 Flow Rate FiO2 11/06/16 00:45 Supplement Oxygen 11/04/16 09:37 85 11/04/16 08:15 21 120/42 97 40 11/04/16 02:25 36.7 11/03/16 21:15 3.00 Intake and Output 11/05/16 11/05/16 11/06/16 Cumulative From/Thru 15:00 23:00 07:00 10/25/16 10:47 - 11/06/16 06:19 Intake Total 0 ml 0 ml 6719 ml Output Total 4650 ml Balance 0 ml 0 ml 2069 ml Intake Oral 0 ml 0 ml 4100 ml IV Total 2032 ml Packed Cells 587 ml Output Urine Total 4650 ml Urine/Stool Mix 0 ml # Voids 0 1 15 # Bowel Movements 0 7 Exam lethargic, making incoherent sounds no JVD, MMM, no LAD RRR, nl s1, s2 no mrg bilateral coarse BS, rhonchi S,ND,NT,normoactive BS+ warm, 1+edema, pulses 1/2 IVs and Medications Medications Reviewed: Medications were reviewed in detail Lab and Diagnostics Result Diagram: 11/05/16 0600 11/05/16 0600 X-Rays, CTs and MRIs . X-RAY CHEST ONE VIEW, PORTABLE IMPRESSION: Reduced inspiratory volume, without identified trauma. Dictated by: Francisco Rivera M.D. on 10/25/2016 X-RAY CHEST ONE VIEW, PORTABLE IMPRESSION: Pleural effusions left greater than right with left basilar atelectasis or infiltrate. Dictated by: Bennie Strauss M.D. on 10/26/2016 US ABDOMEN DOPPLER IMPRESSION: 1. Poorly seen [place] kidneys with a right abdominal transplant kidney. 2. The main portal vein and the hepatic veins are patent. Renal vasculature was not evaluated. Dictated by: Bennie Strauss M.D. on 10/26/2016 US VENOUS LEG DUPLEX BILATERAL IMPRESSION: No DVT in lower extremities bilaterally. Dictated by: Nolan Ulloa M.D. on 10/26/2016 US RENAL TRANSPLANT EVALUATION IMPRESSION: 1. The transplant kidney demonstrates mild cortical thinning. 2. No hydronephrosis. 3. Increased resistive index of transplant kidney. 4. Renal artery and renal vein (transplant kidney) are patent. Dictated by: Nolan Ulloa M.D. on 10/27/2016 CT LUMBAR SPINE WITHOUT CONTRAST IMPRESSION: 1. No fracture. No acute osseous lesion. If there are persistent symptoms or continued clinical suspicion for pathology, then MRI should be considered for further evaluation. 2. Multilevel degenerative disc disease and facet arthropathy which may be causing significant bilateral L3-L4 and L4-L5 as well as the left L5-S1 neural foraminal narrowing. Dictated by: Leigh Ann Lilly MD, PhD on 10/27/2016 PROCEDURE: X-RAY CHEST ONE VIEW, PORTABLE ([id number]) INDICATIONS: dyspnea TECHNIQUE: One view of the chest was acquired. COMPARISON: None. FINDINGS: Surgical changes and devices: None. Lungs and pleura: No pleural effusions or pneumothorax. Lungs are edematous and the inspiratory volume is reduced. There is at least left basilar atelectasis if not superimposed mild pneumonia. Mediastinum: Mediastinal contours appear normal. Heart size is normal. Bones and chest wall: No suspicious bony lesions. Overlying soft tissues appear unremarkable. IMPRESSION: Reduced inspiratory volume, mild pulmonary edema pattern, left basilar atelectasis and/or pneumonia. 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 This has been present on prior CT scanning also. No appreciable change. Dictated by: Francisco Rivera M.D. on 10/30/2016 at 12:55 Approved by: Francisco Rivera M.D. on 10/30/2016 at 12:56 ADDENDUM: SC posterior aspect of the left seventh rib there is a vertically oriented fracture, only minimally displaced, which cannot be clearly visualized on an old comparison chest plain film from 04/18/16. The more recent chest plain films do not allow excellent visualization through that area a due to reduced inspiration in overlapping mediastinal structures but it was not clearly present 10/25/16, the best visualization on recent plain films. No definite osteolytic or blastic lesion is seen in that area. COMPARISON: [facility], CR, XR CHEST 1VW (PORTABLE), 10/26/2016, 15:07. [facility], CR, XR CHEST 1VW (PORTABLE), 10/25/2016, 11:18. [facility], CR, XR CHEST 2VW, 04/18/2016, 14:34. Dictated by: Francisco Rivera M.D. on 10/30/2016 at 13:24 12-lead ECG SR,incomplete RBBB Cardiac Echo Impressions Interpretation Summary The ejection fraction is estimated to be 70-75%. The left atrium is severely dilated. The right atrium is mild to moderately dilated. There is moderate mitral annular calcification. The mitral valve mean gradient is 4 mmHg. There is mild to moderate mitral regurgitation. The aortic valve is moderately calcified. There is no hemodynamically significant valvular aortic stenosis. There is mild tricuspid regurgitation. The right ventricular systolic pressure is estimated at 34 mmHg assuming a right atrial pressure of 3 mm Hg. Assessment & Plan Ms. Jelena Merritt is a very pleasant 81 year old lady with a past medical history of hepatic and bilateral renal transplants in 2004, hypertension, DM, presented to the [facility] Emergency Department due to back pain after a fall from ground level. Currently pt is on comfort care, started on dilaudid, ativan, scolopamine, appreciate Palliative care management. continue lasix 40 tid for symptoms control, today dilaudid was switched to morphine gtt, prognosis is still guarded. All questions answered with a son at the bedside # Acute on chronic Kidney injury. Present on admission. Active. - Creatinine on admission 2.99, baseline ~ 2.6.. -Today, Sodium is 1:30, potassium 5.8, chloride 99, bicarbonate 16, BUN and creatinine are worsening at 66 and 4.84 respectively -US KUB transplant unremarkable - Avoid nephrotoxic insults. -lasix 40mg iv given on 10/28,10/29,10/30 . It seems Yonathan is combination of ATN from infection/dehydration, labile BP and overdiuresis -held lasix ,last dose 10/30 -nephrology following -Per nephrology today, we restarted furosemide 60 mg every 8 hours for 4 doses. However, patient had poor response -Given declining renal function and progressive fluid overload, family is agreeable to comfort measures and palliative care was consulted today. We greatly appreciate their input -Patient's code status was changed to DNR/DNI -Continue medical management but avoid interventions that will produce significant distress -Palliative Goals from family is to keep her comfortable and decrease level of anxiety # Acute on chronic Normocytic Anemia requiring transfusion . Present on admission. - Hgb on admit 7.7. Prior levels inpatient and outpatient baseline between 9 and 10. -Hb 7.0 10/30,2 PRBCs transfused. -anemia likely due to CKD -Started Aranesp 60 mg # suspected acute on chronic diastolic Congestive Heart failure, present on admission. Active. - ECHO as above with norml EF - BNP on admit 12k. > 20,000 on 10/30 - EKG reviewed - Sinus rhythm, PAC's, RBBB. -Initially held home furosemide 20 mg daily then restarted furosemide 60 mg every 8 hours for 4 doses and now stopped it due to limited response -monitored weights and fluid output -Patient was started on BiPap but discontinued today as it made her uncomfortable # acute hypoxic respiratory failure due to fluid overload and rib fracture -fluid overload due to YONATHAN on CKD ,acute on chronic diastolic CHF and possible atelectasis as well as left 7th rib fracure -mx of contributing factors as above # Acute complicated UTI , resolved -initial tachycardia at 110,low grade fever,pyuria,procal elevated at 5 -urine culture GBS -started cefepime, switched to Ancef 10/27 . Broaden again to cefepime due to new leukocytosis 10/31. Discontinued antibiotics on 11/02 ( completed 7 days course ) -uti probably caused the fall # Elevated troponin,improved -due to YONATHAN on CKD , trended down -ASA 1 dose given initially -LA severely dilated on echo,RVSP 34,d-dimer elated ,.LE duplex negative . # Hypertension, stable - held home Valsartan 80 mg HS due to YONATHAN -holding blood pressure meds # Elevated d-dimer -unclear significance -LA severely dilated on echo,RVSP 34,d-dimer elated , .not a candidate for CTA .LE duplex negative . # Acute lumbar Back pain, 2nd to traumatic Fall from Ground level. Present on admission. Active. - CT lumbar negative for fracture -pain control with morphine - Physical therapy eval ordered. - fall due to UTI # GLF -due to UTI -Low vitamin D at 19.9 noted. Started vitamin D 1000 units daily -cxr 10/30 revealed rib fracture that wan not reported on prior XRs . incentive spirometry given # Hx of Hepatic and Renal transplant, 2004, present on admission. Active. - Hold Tacrolimus 1mg AM/HS. Patient is currently npo. Tacrolimus trough is acceptable - Continue home Prednisone 5 mg daily. # Hyperlipemia - Hold home Pravastatin 40 mg daily as patient is npo # Depression - Hold home Sertraline 20 mg HS as patient is npo. Acetaminophen for mild pain when necessary. Bowel regimen Senna and MiraLAX scheduled and PRN. Zofran when necessary for nausea and vomiting. SubQ heparin for now. SCDs in place. Code Status: DNR/DNI Disposition: Per family, patient is now comfort measures VTE Mechanical Devices: Intermittant Pneumatic CD Resuscitation Status: DNR/DNI:Do Not Resuscitate/Intubate Limited Interventions: Medications and IV Fluid Time spent 35min India Arambula MD Nov 06, 2016 09:32
[2016-11-06 20:23] VITALS: PULSE 90; RESP 11
[2016-11-06] MEDS: Glycopyrrolate 0.2 MG/ML 1mL Inj IVPUSH PRN (22:23)
[2016-11-06 22:27] VITALS: PULSE 84; RESP 12
[2016-11-07 00:46] VITALS: PULSE 84; RESP 10
[2016-11-07] MEDS: Glycopyrrolate 0.2 MG/ML 1mL Inj IVPUSH PRN ×3 (00:52→11:32)
[2016-11-07] MEDS: Atropine 1% 5 mL Ophthalmic Solution PO PRN ×2 (03:22→11:32)
[2016-11-07 03:34] VITALS: PULSE 96; RESP 10
[2016-11-07 06:54] VITALS: PULSE 86; RESP 11
[2016-11-07] MEDS: Nystatin 100,000 Unit/Gm 15 Gm Powder TOPICAL SCH (07:56)
[2016-11-07] MEDS: Furosemide 10 mg/mL 4 mL Inj IVPUSH SCH (07:56)
[2016-11-07] MEDS: Lidocaine Topical 5% Patch TOPICAL SCH (07:56)
--- NOTE | 2016-11-07 08:55 | PCM.PNMED ---
Subjective Date of Service Nov 07, 2016 Subjective pt looked comfortable on morphine gtt, Exam Vital Signs Vital Sign - Last Date Time Temp Pulse Resp B/P Pulse Ox O2 Delivery O2 Flow Rate FiO2 11/07/16 06:54 86 11 11/07/16 05:24 Supplement Oxygen 11/07/16 00:46 2.00 11/04/16 08:15 120/42 97 40 11/04/16 02:25 36.7 Intake and Output 11/06/16 11/06/16 11/07/16 Cumulative From/Thru 15:00 23:00 07:00 10/25/16 10:47 - 11/07/16 05:56 Intake Total 0 ml 19 ml 6738 ml Output Total 0 ml 4650 ml Balance 0 ml 19 ml 2088 ml Intake Oral 0 ml 4100 ml IV Total 19 ml 2051 ml Packed Cells 587 ml Output Urine Total 0 ml 4650 ml Urine/Stool Mix 0 ml # Voids 15 # Bowel Movements 0 7 Exam not responsive, no JVD, MMM, no LAD RRR, nl s1, s2 no mrg bilateral coarse BS, rhonchi S,ND,NT,normoactive BS+ warm, 1+edema, pulses 1/2 IVs and Medications Medications Reviewed: Medications were reviewed in detail Lab and Diagnostics Result Diagram: 11/05/16 0600 11/05/16 0600 X-Rays, CTs and MRIs . X-RAY CHEST ONE VIEW, PORTABLE IMPRESSION: Reduced inspiratory volume, without identified trauma. Dictated by: Francisco Rivera M.D. on 10/25/2016 X-RAY CHEST ONE VIEW, PORTABLE IMPRESSION: Pleural effusions left greater than right with left basilar atelectasis or infiltrate. Dictated by: Bennie Strauss M.D. on 10/26/2016 US ABDOMEN DOPPLER IMPRESSION: 1. Poorly seen [place] kidneys with a right abdominal transplant kidney. 2. The main portal vein and the hepatic veins are patent. Renal vasculature was not evaluated. Dictated by: Bennie Strauss M.D. on 10/26/2016 US VENOUS LEG DUPLEX BILATERAL IMPRESSION: No DVT in lower extremities bilaterally. Dictated by: Nolan Ulloa M.D. on 10/26/2016 US RENAL TRANSPLANT EVALUATION IMPRESSION: 1. The transplant kidney demonstrates mild cortical thinning. 2. No hydronephrosis. 3. Increased resistive index of transplant kidney. 4. Renal artery and renal vein (transplant kidney) are patent. Dictated by: Nolan Ulloa M.D. on 10/27/2016 CT LUMBAR SPINE WITHOUT CONTRAST IMPRESSION: 1. No fracture. No acute osseous lesion. If there are persistent symptoms or continued clinical suspicion for pathology, then MRI should be considered for further evaluation. 2. Multilevel degenerative disc disease and facet arthropathy which may be causing significant bilateral L3-L4 and L4-L5 as well as the left L5-S1 neural foraminal narrowing. Dictated by: Leigh Ann Lilly MD, PhD on 10/27/2016 PROCEDURE: X-RAY CHEST ONE VIEW, PORTABLE ([id number]) INDICATIONS: dyspnea TECHNIQUE: One view of the chest was acquired. COMPARISON: None. FINDINGS: Surgical changes and devices: None. Lungs and pleura: No pleural effusions or pneumothorax. Lungs are edematous and the inspiratory volume is reduced. There is at least left basilar atelectasis if not superimposed mild pneumonia. Mediastinum: Mediastinal contours appear normal. Heart size is normal. Bones and chest wall: No suspicious bony lesions. Overlying soft tissues appear unremarkable. IMPRESSION: Reduced inspiratory volume, mild pulmonary edema pattern, left basilar atelectasis and/or pneumonia. 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 This has been present on prior CT scanning also. No appreciable change. Dictated by: Francisco Rivera M.D. on 10/30/2016 at 12:55 Approved by: Francisco Rivera M.D. on 10/30/2016 at 12:56 ADDENDUM: SC posterior aspect of the left seventh rib there is a vertically oriented fracture, only minimally displaced, which cannot be clearly visualized on an old comparison chest plain film from 04/18/16. The more recent chest plain films do not allow excellent visualization through that area a due to reduced inspiration in overlapping mediastinal structures but it was not clearly present 10/25/16, the best visualization on recent plain films. No definite osteolytic or blastic lesion is seen in that area. COMPARISON: [facility], CR, XR CHEST 1VW (PORTABLE), 10/26/2016, 15:07. [facility], CR, XR CHEST 1VW (PORTABLE), 10/25/2016, 11:18. [facility], CR, XR CHEST 2VW, 04/18/2016, 14:34. Dictated by: Francisco Rivera M.D. on 10/30/2016 at 13:24 12-lead ECG SR,incomplete RBBB Cardiac Echo Impressions Interpretation Summary The ejection fraction is estimated to be 70-75%. The left atrium is severely dilated. The right atrium is mild to moderately dilated. There is moderate mitral annular calcification. The mitral valve mean gradient is 4 mmHg. There is mild to moderate mitral regurgitation. The aortic valve is moderately calcified. There is no hemodynamically significant valvular aortic stenosis. There is mild tricuspid regurgitation. The right ventricular systolic pressure is estimated at 34 mmHg assuming a right atrial pressure of 3 mm Hg. Assessment & Plan Ms. Jelena Merritt is a very pleasant 81 year old lady with a past medical history of hepatic and bilateral renal transplants in 2004, hypertension, DM, presented to the [facility] Emergency Department due to back pain after a fall from ground level. Currently pt is on comfort care, started on dilaudid, ativan, scolopamine, appreciate Palliative care management. continue lasix 40 tid for symptoms control, 11/06 dilaudid was switched to morphine gtt, prognosis is still guarded. All questions answered with a son at the bedside # Acute on chronic Kidney injury. Present on admission. Active. - Creatinine on admission 2.99, baseline ~ 2.6.. -Today, Sodium is 1:30, potassium 5.8, chloride 99, bicarbonate 16, BUN and creatinine are worsening at 66 and 4.84 respectively -US KUB transplant unremarkable - Avoid nephrotoxic insults. -lasix 40mg iv given on 10/28,10/29,10/30 . It seems Yonathan is combination of ATN from infection/dehydration, labile BP and overdiuresis -held lasix ,last dose 10/30 -nephrology following -Per nephrology today, we restarted furosemide 60 mg every 8 hours for 4 doses. However, patient had poor response -Given declining renal function and progressive fluid overload, family is agreeable to comfort measures and palliative care was consulted today. We greatly appreciate their input -Patient's code status was changed to DNR/DNI -Continue medical management but avoid interventions that will produce significant distress -Palliative Goals from family is to keep her comfortable and decrease level of anxiety # Acute on chronic Normocytic Anemia requiring transfusion . Present on admission. - Hgb on admit 7.7. Prior levels inpatient and outpatient baseline between 9 and 10. -Hb 7.0 10/30,2 PRBCs transfused. -anemia likely due to CKD -Started Aranesp 60 mg # suspected acute on chronic diastolic Congestive Heart failure, present on admission. Active. - ECHO as above with norml EF - BNP on admit 12k. > 20,000 on 10/30 - EKG reviewed - Sinus rhythm, PAC's, RBBB. -Initially held home furosemide 20 mg daily then restarted furosemide 60 mg every 8 hours for 4 doses and now stopped it due to limited response -monitored weights and fluid output -Patient was started on BiPap but discontinued today as it made her uncomfortable # acute hypoxic respiratory failure due to fluid overload and rib fracture -fluid overload due to YONATHAN on CKD ,acute on chronic diastolic CHF and possible atelectasis as well as left 7th rib fracure -mx of contributing factors as above # Acute complicated UTI , resolved -initial tachycardia at 110,low grade fever,pyuria,procal elevated at 5 -urine culture GBS -started cefepime, switched to Ancef 10/27 . Broaden again to cefepime due to new leukocytosis 10/31. Discontinued antibiotics on 11/02 ( completed 7 days course ) -uti probably caused the fall # Elevated troponin,improved -due to YONATHAN on CKD , trended down -ASA 1 dose given initially -LA severely dilated on echo,RVSP 34,d-dimer elated ,.LE duplex negative . # Hypertension, stable - held home Valsartan 80 mg HS due to YONATHAN -holding blood pressure meds # Elevated d-dimer -unclear significance -LA severely dilated on echo,RVSP 34,d-dimer elated , .not a candidate for CTA .LE duplex negative . # Acute lumbar Back pain, 2nd to traumatic Fall from Ground level. Present on admission. Active. - CT lumbar negative for fracture -pain control with morphine - Physical therapy eval ordered. - fall due to UTI # GLF -due to UTI -Low vitamin D at 19.9 noted. Started vitamin D 1000 units daily -cxr 10/30 revealed rib fracture that wan not reported on prior XRs . incentive spirometry given # Hx of Hepatic and Renal transplant, 2004, present on admission. Active. - Hold Tacrolimus 1mg AM/HS. Patient is currently npo. Tacrolimus trough is acceptable - Continue home Prednisone 5 mg daily. # Hyperlipemia - Hold home Pravastatin 40 mg daily as patient is npo # Depression - Hold home Sertraline 20 mg HS as patient is npo. Acetaminophen for mild pain when necessary. Bowel regimen Senna and MiraLAX scheduled and PRN. Zofran when necessary for nausea and vomiting. SubQ heparin for now. SCDs in place. Code Status: DNR/DNI Disposition: Per family, patient is now comfort measures VTE Mechanical Devices: Intermittant Pneumatic CD Resuscitation Status: DNR/DNI:Do Not Resuscitate/Intubate Limited Interventions: Medications and IV Fluid Time spent 35min India Arambula MD Nov 07, 2016 08:55
[2016-11-07 12:41] VITALS: PULSE 86; RESP 12
--- NOTE | 2016-11-07 16:20 | PCM.DC.MEX ---
Discharge Summary Date of Service Nov 07, 2016 Dates of Hospitalization Date of Hospital Admission Oct 25, 2016 at 15:17 Date of Expiration: Nov 07, 2016 Time of Expiration: 15:08 Providers: Admitting Physician: Jed Garnica Primary Care Physician: Aris Caruso MD Attending Physician: India Arambula MD Diagnosis at Time of respiratory failure Procedures XRay, CTs & MRIs . X-RAY CHEST ONE VIEW, PORTABLE IMPRESSION: Reduced inspiratory volume, without identified trauma. Dictated by: Francisco Rivera M.D. on 10/25/2016 X-RAY CHEST ONE VIEW, PORTABLE IMPRESSION: Pleural effusions left greater than right with left basilar atelectasis or infiltrate. Dictated by: Bennie Strauss M.D. on 10/26/2016 US ABDOMEN DOPPLER IMPRESSION: 1. Poorly seen [place] kidneys with a right abdominal transplant kidney. 2. The main portal vein and the hepatic veins are patent. Renal vasculature was not evaluated. Dictated by: Bennie Strauss M.D. on 10/26/2016 US VENOUS LEG DUPLEX BILATERAL IMPRESSION: No DVT in lower extremities bilaterally. Dictated by: Nolan Ulloa M.D. on 10/26/2016 US RENAL TRANSPLANT EVALUATION IMPRESSION: 1. The transplant kidney demonstrates mild cortical thinning. 2. No hydronephrosis. 3. Increased resistive index of transplant kidney. 4. Renal artery and renal vein (transplant kidney) are patent. Dictated by: Nolan Ulloa M.D. on 10/27/2016 CT LUMBAR SPINE WITHOUT CONTRAST IMPRESSION: 1. No fracture. No acute osseous lesion. If there are persistent symptoms or continued clinical suspicion for pathology, then MRI should be considered for further evaluation. 2. Multilevel degenerative disc disease and facet arthropathy which may be causing significant bilateral L3-L4 and L4-L5 as well as the left L5-S1 neural foraminal narrowing. Dictated by: Leigh Ann Lilly MD, PhD on 10/27/2016 PROCEDURE: X-RAY CHEST ONE VIEW, PORTABLE ([id number]) INDICATIONS: dyspnea TECHNIQUE: One view of the chest was acquired. COMPARISON: None. FINDINGS: Surgical changes and devices: None. Lungs and pleura: No pleural effusions or pneumothorax. Lungs are edematous and the inspiratory volume is reduced. There is at least left basilar atelectasis if not superimposed mild pneumonia. Mediastinum: Mediastinal contours appear normal. Heart size is normal. Bones and chest wall: No suspicious bony lesions. Overlying soft tissues appear unremarkable. IMPRESSION: Reduced inspiratory volume, mild pulmonary edema pattern, left basilar atelectasis and/or pneumonia. 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 This has been present on prior CT scanning also. No appreciable change. Dictated by: Francisco Rivera M.D. on 10/30/2016 at 12:55 Approved by: Francisco Rivera M.D. on 10/30/2016 at 12:56 ADDENDUM: SC posterior aspect of the left seventh rib there is a vertically oriented fracture, only minimally displaced, which cannot be clearly visualized on an old comparison chest plain film from 04/18/16. The more recent chest plain films do not allow excellent visualization through that area a due to reduced inspiration in overlapping mediastinal structures but it was not clearly present 10/25/16, the best visualization on recent plain films. No definite osteolytic or blastic lesion is seen in that area. COMPARISON: [facility], CR, XR CHEST 1VW (PORTABLE), 10/26/2016, 15:07. [facility], CR, XR CHEST 1VW (PORTABLE), 10/25/2016, 11:18. [facility], CR, XR CHEST 2VW, 04/18/2016, 14:34. Dictated by: Francisco Rivera M.D. on 10/30/2016 at 13:24 ECG 12 Lead SR,incomplete RBBB Cardiac Echo Impression Interpretation Summary The ejection fraction is estimated to be 70-75%. The left atrium is severely dilated. The right atrium is mild to moderately dilated. There is moderate mitral annular calcification. The mitral valve mean gradient is 4 mmHg. There is mild to moderate mitral regurgitation. The aortic valve is moderately calcified. There is no hemodynamically significant valvular aortic stenosis. There is mild tricuspid regurgitation. The right ventricular systolic pressure is estimated at 34 mmHg assuming a right atrial pressure of 3 mm Hg. Brief History PALLIATIVE CARE CONSULTATION Reason for consult: goals of care and sx management Referring provider: Dr. Rob Bowie PCP Dr. 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 She has had progressive deterioration of renal fxn over the past year and secondary CHF. She had a bout of nausea and lightheadedness causing her to fall backward. She initially declined to come to the hospital but was not able to weight bear due to pain and was admitted. She has been seen by renal and trial of diuresing has been unsuccessful in managing her CHF. She is alert but does not engage in complex decision making which is deferred to her daughters by her . There has been discussion regarding dialysis but patient has not been interested in this in the past and family requested discussion on goals of care. Patient has been on BIPAP now trying to pull it off. Tends to drift to sleep easily. Hospital Course Ms. Jelena Merritt is a very pleasant 81 year old lady with a past medical history of hepatic and bilateral renal transplants in 2004, hypertension, DM, presented to the [facility] Emergency Department due to back pain after a fall from ground level. pt was admitted after fall, found to have severe MARIE on CKD, failing s/p KT. Volume status, hyperkalemia was critical, indicated for HD. pt/family decided not to pursue dialysis, Pt was started on comfort care. seen by Palliative care. Pt peacefully on 11/07 15:08 Currently pt is on comfort care, started on dilaudid, ativan, scolopamine, appreciate Palliative care management. continue lasix 40 tid for symptoms control, 11/06 dilaudid was switched to morphine gtt, prognosis is still guarded. All questions answered with a son at the bedside # Acute on chronic Kidney injury. Present on admission. Active. - Creatinine on admission 2.99, baseline ~ 2.6.. -Today, Sodium is 1:30, potassium 5.8, chloride 99, bicarbonate 16, BUN and creatinine are worsening at 66 and 4.84 respectively -US KUB transplant unremarkable - Avoid nephrotoxic insults. -lasix 40mg iv given on 10/28,10/29,10/30 . It seems Marie is combination of ATN from infection/dehydration, labile BP and overdiuresis -held lasix ,last dose 10/30 -nephrology following -Per nephrology today, we restarted furosemide 60 mg every 8 hours for 4 doses. However, patient had poor response -Given declining renal function and progressive fluid overload, family is agreeable to comfort measures and palliative care was consulted today. We greatly appreciate their input -Patient's code status was changed to DNR/DNI -Continue medical management but avoid interventions that will produce significant distress -Palliative Goals from family is to keep her comfortable and decrease level of anxiety # Acute on chronic Normocytic Anemia requiring transfusion . Present on admission. - Hgb on admit 7.7. Prior levels inpatient and outpatient baseline between 9 and 10. -Hb 7.0 10/30,2 PRBCs transfused. -anemia likely due to CKD -Started Aranesp 60 mg # suspected acute on chronic diastolic Congestive Heart failure, present on admission. Active. - ECHO as above with norml EF - BNP on admit 12k. > 20,000 on 10/30 - EKG reviewed - Sinus rhythm, PAC's, RBBB. -Initially held home furosemide 20 mg daily then restarted furosemide 60 mg every 8 hours for 4 doses and now stopped it due to limited response -monitored weights and fluid output -Patient was started on BiPap but discontinued today as it made her uncomfortable # acute hypoxic respiratory failure due to fluid overload and rib fracture -fluid overload due to MARIE on CKD ,acute on chronic diastolic CHF and possible atelectasis as well as left 7th rib fracure -mx of contributing factors as above # Acute complicated UTI , resolved -initial tachycardia at 110,low grade fever,pyuria,procal elevated at 5 -urine culture GBS -started cefepime, switched to Ancef 10/27 . Broaden again to cefepime due to new leukocytosis 10/31. Discontinued antibiotics on 11/02 ( completed 7 days course ) -uti probably caused the fall # Elevated troponin,improved -due to MARIE on CKD , trended down -ASA 1 dose given initially -LA severely dilated on echo,RVSP 34,d-dimer elated ,.LE duplex negative . # Hypertension, stable - held home Valsartan 80 mg HS due to MARIE -holding blood pressure meds # Elevated d-dimer -unclear significance -LA severely dilated on echo,RVSP 34,d-dimer elated , .not a candidate for CTA .LE duplex negative . # Acute lumbar Back pain, 2nd to traumatic Fall from Ground level. Present on admission. Active. - CT lumbar negative for fracture -pain control with morphine - Physical therapy eval ordered. - fall due to UTI # GLF -due to UTI -Low vitamin D at 19.9 noted. Started vitamin D 1000 units daily -cxr 10/30 revealed rib fracture that wan not reported on prior XRs . incentive spirometry given # Hx of Hepatic and Renal transplant, 2004, present on admission. Active. - Hold Tacrolimus 1mg AM/HS. Patient is currently npo. Tacrolimus trough is acceptable - Continue home Prednisone 5 mg daily. # Hyperlipemia - Hold home Pravastatin 40 mg daily as patient is npo # Depression - Hold home Sertraline 20 mg HS as patient is npo. Acetaminophen for mild pain when necessary. Bowel regimen Senna and MiraLAX scheduled and PRN. Zofran when necessary for nausea and vomiting. SubQ heparin for now. SCDs in place. Code Status: DNR/DNI Disposition: Per family, patient is now comfort measures Exam Test 10/25/16 13:27 10/26/16 07:33 10/26/16 10:35 10/26/16 13:00 Hold Kelly Top Tube Received (Received) Prothrombin Time 12.4sec (8.1-12.5) Prothromb Time International Ratio 1.16ratio D-Dimer 5.57mg/L FEU (<0.50) Iron Level 15ug/dL (35-150) Total Iron Binding Capacity 184ug/dL (250-450) Percent Iron Saturation 8%sat (15-50) Unsaturated Iron Binding 168.6ug/dL Ferritin 812ng/mL (13-150) Vitamin B12 Level 953pg/mL (211-946) Vitamin D 25-Hydroxy 19.9ng/mL (30.0-100.0) Folate > 19.9ng/mL (>3.0) Parathyroid Hormone (Intact) 73pg/mL (15-65) Cytomegalovirus DNA Quant (PCR) NegativeIU/mL (Negative) BK Virus DNA Quantitative (PCR) Negativecopies/mL (Negative) BK Virus Quant PCR log10 (.) Thyroid Stimulating Hormone (TSH) 3.670uIU/mL (0.450-4.500) Free Thyroxine 0.89ng/dL (0.82-1.77) Test 10/26/16 16:24 10/26/16 16:30 10/28/16 06:30 10/30/16 09:24 Urine Color Yellow (YELLOW) Urine Appearance Cloudy (CLEAR,HAZY) Urine pH 6.5 (5.0-8.0) Urine Specific Lena 1.020 (1.003-1.035) Urine Protein 300mg/dL (NEG,TRACE) Urine Glucose (UA) 250mg/dL (NEGATIVE) Urine Ketones Tracemg/dL (NEGATIVE) Urine Occult Blood Moderate (NEGATIVE) Urine Nitrite Negative (NEGATIVE) Urine Bilirubin Negative (NEGATIVE) Urine Urobilinogen Normalmg/dL (NORMAL) Urine Leukocyte Esterase Trace (NEGATIVE) Urine RBC 3-10/hpf (0-2) Urine WBC 11-50/hpf (0-5) Urine Epithelial Cells Few/hpf (NONE-MOD) Urine Crystals None seen (NONE SEEN) Urine Bacteria Many/hpf (NONE-FEW) Urine Hyaline Casts None/lpf (NONE) Urine Granular Casts None seen (NONE SEEN) Urine Waxy Casts None seen (NONE SEEN) Urine Red Blood Cell Casts None seen (NONE SEEN) Urine White Blood Cell Casts None seen (NONE SEEN) Urine Mucus None seen (None Seen) Urine Trichomonas None seen (NONE SEEN) Urine Yeast None (NONE SEEN) Urinalysis Comment None Urine Culture Reflexed Indicated Urine Random Creatinine 90mg/dL (15-278) Urine Random Total Protein 897mg/dL (0-15) Troponin T 0.038ug/L (0.0-0.011) Pro-B-Type Natriuretic Peptide 14601se/mL (0-738) Test 11/01/16 06:25 11/02/16 05:45 11/03/16 07:05 11/05/16 06:00 Magnesium Level 1.8mg/dL (1.6-2.6) Procalcitonin 2.05ng/mL (0.00-0.08) Phosphorus Level 4.6mg/dL (2.5-4.9) Tacrolimus (Prograf) Level 14.6ng/mL (2.0-20.0) White Blood Count 14.2th/mm3 (3.8-10.1) Red Blood Count 3.50mil/mm3 (3.90-5.20) Hemoglobin 10.3g/dL (12.0-15.6) Hematocrit 33.5% (35.0-46.0) Mean Corpuscular Volume 95.7fL (81-100) Mean Corpuscular Hemoglobin 29.4pg (27.0-35.0) Mean Corpuscular Hemoglobin Concent 30.7% (32.0-37.0) Red Cell Distribution Width 16.2% (12.3-15.4) Platelet Count 285bil/L (150-400) Neutrophils (%) (Auto) 71% (40-74) Lymphocytes (%) (Auto) 18% (14-46) Monocytes (%) (Auto) 4% (4-12) Eosinophils (%) (Auto) 3% (0-5) Basophils (%) (Auto) 0% (0-3) Metamyelocytes % 2% (0-0) Myelocytes % 2% (0-0) Sodium Level 135mEq/L (134-144) Potassium Level 6.1mEq/L (3.5-5.2) Chloride Level 100mEq/L (97-108) Carbon Dioxide Level 14mmol/L (18-29) Blood Urea Nitrogen 72mg/dL (8-27) Creatinine 5.21mg/dL (0.57-1.00) Estimat Glomerular Filtration Rate 11mL/min (>59) Glucose Level 61mg/dL (60-99) Calcium Level 8.2mg/dL (8.5-10.1) Total Bilirubin 0.2mg/dL (0.0-1.2) Aspartate Amino Transf (AST/SGOT) 18U/L (0-50) Alanine Aminotransferase (ALT/SGPT) 5U/L (0-32) Alkaline Phosphatase 173U/L (25-165) Total Protein 4.5g/dL (6.4-8.4) Albumin 2.4g/dL (3.4-5.0) India Aarmbula MD Nov 07, 2016 16:20
== END 2016-11-07 15:08 | disposition expired | DRG 682 ==
LOC: SED 10:47 → MOC 15:17 → OBSVTOIN 15:17 → MOC 18:15 → PCC 11-02 23:06 → MPC 11-04 20:38
PROVIDERS: ADMIT Internal Medicine; ATTEND Internal Medicine
PROC: 30233N1 Transfusion of Nonautologous Red Blood Cells into Peripheral Vein, Percutaneous Approach (ICD-10-PCS; principal; 2016-10-30)
PROC: 4A033R1 Measurement of Arterial Saturation, Peripheral, Percutaneous Approach (ICD-10-PCS; 2016-11-02)
PROC: 5A09357 Assistance with Respiratory Ventilation, Less than 24 Consecutive Hours, Continuous Positive Airway Pressure (ICD-10-PCS; 2016-11-02)
DX: N17.0 Acute kidney failure with tubular necrosis (principal); I50.33 Acute on chronic diastolic (congestive) heart failure; J96.01 Acute respiratory failure with hypoxia; Z94.0 Kidney transplant status; Z94.4 Liver transplant status; N39.0 Urinary tract infection, site not specified; S22.32XA Fracture of one rib, left side, initial encounter for closed fracture; N03.9 Chronic nephritic syndrome with unspecified morphologic changes; B96.89 Other specified bacterial agents as the cause of diseases classified elsewhere; B95.1 Streptococcus, group B, as the cause of diseases classified elsewhere; D64.89 Other specified anemias; F32.9 Major depressive disorder, single episode, unspecified; E11.9 Type 2 diabetes mellitus without complications; Z79.52 Long term (current) use of systemic steroids; S39.92XA Unspecified injury of lower back, initial encounter; W18.30XA Fall on same level, unspecified, initial encounter; N18.4 Chronic kidney disease, stage 4 (severe); Z51.5 Encounter for palliative care; I12.9 Hypertensive chronic kidney disease with stage 1 through stage 4 chronic kidney disease, or unspecified chronic kidney disease